=== PATIENT | female | born 1955 | race Caucasian/White ===

== ENCOUNTER 2016-12-07 14:42 | Emergency (ER) | payer OTHER ==
[~2016-12-07] VITALS: Ht 165.1 cm; Wt 56.7 kg
[~2016-12-07 14:42] MED LIST: ALBUAER19 INH; ASCO100061 PO; CHOL100010 PO; DICY10CA55 PO; ESTROGENS METHYLTEST PO; FRCT/ PO; LEVO75TA PO; METO1TAB54 PO; SYMIN160 INH; TRAZ150T64 PO
[2016-12-07 14:48] VITALS: TEMP 36.4; Ht 165.1 cm; Wt 56.7 kg
--- NOTE | 2016-12-07 16:32 | EMERGENCY ROOM VISIT NOTE ---
History Report prepared by Thomas: Alem Jara Under the Supervision of: Dr. Randy Ellington M.D. First contact with patient: 16:16 Chief Complaint: CONFUSION Stated Complaint: DISORIENTED, CONFUSED, NOT SURE OF SELF Nursing Triage Summary: pt reports being confused and forgeting things since tuesday pt reports she had bad headache on tuesday receives botox for migraines. feels nauseated today. no vomiting today. has headache moves throughout head. 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 daughter reports pt is slow thought process and has slower response time. also this has been going on for a while and wonders if med, takes wellbutrin. also concerned about pt not eating or drinking enough has been problem in past History of Present Illness The patient is a 61 year old female who presents to the Emergency Room with complaints of worsening confusion that started 2 days ago. Associated symptoms include worsening neck stiffness over past few days, persistent headaches, intermittent numbness and tingling in hands, feet, and legs, and worsening nausea today. The patient has a history of migraines in which she receives Botox to treat. She does not believe she has been "acting herself" recently. The patient's daughter reports that the patient came out of her bathroom today with her pants unbuckled. Her coworkers add noticing increased forgetfulness and distraction in the patient recently. The patient denies fevers, new onset abdominal pain, chest pain, or any additional associated symptoms. She also denies drug or alcohol use. Source of History: patient, family, other (Coworkers) Onset: 2 days ago Position: other (Neurologic ) Timing: worsening Modifying Factors (Relieving): other (None) Associated Symptoms: + headache, + nausea, + neck pain (Stiffness), + numbness, No chest pain, No fevers Review of Systems See HPI for pertinent positives & negatives. A total of 10 systems reviewed and were otherwise negative. Past Medical & Surgical Medical Problems: (1) Anemia (2) Asthma exacerbation (3) Bronchitis (4) Leukopenia Family History Adopted Social History Smoking Status: Never Smoker Alcohol Use: none Drug Use: none Marital Status: Housing Status: lives alone Occupation Status: unemployed Current/Historical Medications Scheduled Albuterol Hfa (Ventolin Hfa), 1-2 PUFFS INH Q6H Ascorbic Acid (Ascorbic Acid), 1,000 MG PO DAILY Budesonide/Formoterol Fumarate (Symbicort 160/4.5 Inhaler ), 2 PUFFS INH BID Cefdinir (Omnicef), 300 MG PO Q12H Cholecalciferol (Vitamin D), 1 TAB PO DAILY Levothyroxine Sodium (Synthroid), 75 MCG PO DAILY Montelukast Sodium (Singulair), 1 TAB PO DAILY Trazodone HCl (Trazodone HCl), 2 TABS PO HS Zolpidem Tartrate (Ambien), 0.5 TAB PO HS Scheduled PRN Dicyclomine Hcl (Bentyl), 10 MG PO DAILY PRN for Unknown Metoclopramide Hcl (Reglan), 5 MG PO 3-4 X DAILY PRN for Allergies Coded Allergies: No Known Allergies (Verified , 01/28/15) Physical Exam Vital Signs Date Time Temp Pulse Resp B/P Pulse Ox O2 Delivery O2 Flow Rate FiO2 12/07/16 18:36 76 20 133/76 98 Room Air 12/07/16 17:07 76 16 119/72 97 12/07/16 14:48 36.4 84 18 132/86 100 Room Air Physical Exam GENERAL: Patient is well appearing and in no acute distress. HEENT: No acute trauma, normocephalic atraumatic, mucous membranes moist, no nasal congestion, no scleral icterus. NECK: No stridor, no adenopathy, no meningismus, trachea is midline. LUNGS: No dyspnea. Clear to auscultation and equal bilaterally. No wheeze, no rhonchi. HEART: Regular rate and rhythm. No murmurs, rubs, gallops appreciated. ABDOMEN: Soft, nontender, bowel sounds positive, no masses appreciated, no peritonitis. BACK: No midline tenderness, no CVA tenderness EXTREMITIES: Normal motion all extremities, no cyanosis, no edema. NEUROLOGIC: Alert and oriented, no acute motor or sensory deficits, no focal weakness, cranial nerves grossly intact. SKIN: No rash, no jaundice, no diaphoresis. Medical Decision & Procedures ER Provider Diagnostic Interpretation: Radiology results and stated below per my review and radiologist interpretation: CT SCAN OF THE BRAIN WITHOUT IV CONTRAST CLINICAL HISTORY: Change in mental status. COMPARISON STUDY: CT of the brain dated 06/09/2014. TECHNIQUE: Unenhanced axial CT scan of the brain is performed from the vertex to the skull base. Automated dose control exposure was utilized. CT DOSE: 537.48 mGy.cm FINDINGS: Brain parenchyma: The brain parenchyma is normal in appearance. There is no hemorrhage, mass effect, or evidence of acute territorial ischemia by CT criteria. Harrison-white matter is preserved. No extra-axial fluid collection is seen. Ventricles, sulci, cisterns: Normal in configuration. Intracranial vasculature: The visualized intracranial vasculature at the skull base is normal in appearance. Calvarium: Unremarkable. Sinuses and mastoids: The visualized paranasal sinuses are clear. The mastoid air cells are well pneumatized. Orbits: The bony orbits are grossly intact. There is evidence of bilateral ocular lens surgery. IMPRESSION: There is no hemorrhage, mass effect, or evidence of acute territorial ischemia by CT criteria. Electronically signed by: Tahir Andrade M.D. 12/07/2016 5:21 PM Dictated Date/Time: 12/07/2016 5:19 PM SINGLE VIEW CHEST CLINICAL HISTORY: Change in mental status. FINDINGS: An AP, portable, upright chest radiograph is compared to study dated 06/12/2014 and correlated with chest CT dated 03/10/2012. The examination is degraded by portable technique and patient rotation. The cardiomediastinal silhouette is unremarkable. The lungs appear hyperinflated and hyperlucent with flattening of the diaphragm suggesting obstructive physiology. Chronic interstitial thickening is unchanged. There is no airspace consolidation, large pleural effusion, or pneumothorax. The bony thorax is grossly intact. IMPRESSION: No active disease in the chest. Electronically signed by: Tahir Andrade M.D. 12/07/2016 5:04 PM Dictated Date/Time: 12/07/2016 5:02 PM Laboratory Results 12/07/16 16:51 Red Blood Count 3.71, Mean Corpuscular Volume 95.4, Mean Corpuscular Hemoglobin 32.6, Mean Corpuscular Hemoglobin Concent 34.2, Mean Platelet Volume 8.0, Neutrophils (%) (Auto) 52.9, Lymphocytes (%) (Auto) 31.5, Monocytes (%) (Auto) 12.7, Eosinophils (%) (Auto) 2.2, Basophils (%) (Auto) 0.7, Neutrophils # (Auto ) 2.16, Lymphocytes # (Auto) 1.29, Monocytes # (Auto) 0.52, Eosinophils # (Auto ) 0.09, Basophils # (Auto) 0.03 12/07/16 16:51 Test 12/07/16 16:35 12/07/16 16:51 Urine Color YELLOW Urine Appearance CLOUDY (CLEAR) Urine pH 5.0 (4.5-7.5) Urine Specific [place] 1.013 (1.000-1.030) Urine Protein NEG (NEG) Urine Glucose (UA) NEG (NEG) Urine Ketones NEG (NEG) Urine Occult Blood 1+ (NEG) Urine Nitrite NEG (NEG) Urine Bilirubin NEG (NEG) Urine Urobilinogen NEG (NEG) Urine Leukocyte Esterase LARGE (NEG) Urine WBC (Auto) >30 /hpf (0-5) Urine RBC (Auto) 10-30 /hpf (0-4) Urine Hyaline Casts (Auto) 1-5 /lpf (0-5) Urine Epithelial Cells (Auto) >30 /lpf (0-5) Urine Bacteria (Auto) NEG (NEG) Urine Yeast (Auto) (NONE PRSENT) Urine Opiates Screen NEG (NEG) Urine Methadone, Qualitative NEG (NEG) Urine Barbiturates NEG (NEG) Urine Phencyclidine (PCP) Level NEG (NEG) Ur Amphetamine/Methamphetamine NEG (NEG) MDMA (Ecstasy) Screen POS (NEG) Urine Benzodiazepines Screen NEG (NEG) Urine Cocaine Metabolite NEG (NEG) Urine Marijuana (THC) NEG (NEG) White Blood Count 4.09 K/uL (4.8-10.8) Red Blood Count 3.71 M/uL (4.2-5.4) Hemoglobin 12.1 g/dL (12.0-16.0) Hematocrit 35.4 % (37-47) Mean Corpuscular Volume 95.4 fL (80-100) Mean Corpuscular Hemoglobin 32.6 pg (25-34) Mean Corpuscular Hemoglobin Concent 34.2 g/dl (32-36) Platelet Count 218 K/uL (130-400) Mean Platelet Volume 8.0 fL (7.4-10.4) Neutrophils (%) (Auto) 52.9 % Lymphocytes (%) (Auto) 31.5 % Monocytes (%) (Auto) 12.7 % Eosinophils (%) (Auto) 2.2 % Basophils (%) (Auto) 0.7 % Neutrophils # (Auto) 2.16 K/uL (1.4-6.5) Lymphocytes # (Auto) 1.29 K/uL (1.2-3.4) Monocytes # (Auto) 0.52 K/uL (0.11-0.59) Eosinophils # (Auto) 0.09 K/uL (0-0.5) Basophils # (Auto) 0.03 K/uL (0-0.2) RDW Standard Deviation 42.9 fL (36.4-46.3) RDW Coefficient of Variation 12.3 % (11.5-14.5) Immature Granulocyte % (Auto) 0.0 % Immature Granulocyte # (Auto) 0.00 K/uL (0.00-0.02) Prothrombin Time 10.7 SECONDS (9.0-12.0) Prothromb Time International Ratio 1.0 (0.9-1.1) Activated Partial Thromboplast Time 28.4 SECONDS (21.0-31.0) Partial Thromboplastin Ratio 1.1 Anion Gap 7.0 mmol/L (3-11) Est Creatinine Clear Calc Drug Dose 52.2 ml/min Estimated GFR () 69.9 Estimated GFR (Non- 60.3 BUN/Creatinine Ratio 18.8 (10-20) Calcium Level 9.1 mg/dl (8.5-10.1) Total Bilirubin 0.3 mg/dl (0.2-1) Direct Bilirubin 0.1 mg/dl (0-0.2) Aspartate Amino Transf (AST/SGOT) 19 U/L (15-37) Alanine Aminotransferase (ALT/SGPT) 30 U/L (12-78) Alkaline Phosphatase 56 U/L (45-117) Troponin I < 0.015 ng/ml (0-0.045) C-Reactive Protein 0.45 mg/dl (0-0.29) Total Protein 6.6 gm/dl (6.4-8.2) Albumin 4.1 gm/dl (3.4-5.0) Ethyl Alcohol mg/dL < 3.0 mg/dl (0-3) Laboratory results as reviewed by me. Medications Administered Medications (Trade) Dose Ordered Sig/Riley Route Start Time Stop Time Status Last Admin Dose Admin Ceftriaxone Sodium (Rocephin Inj) 1 gm NOW STAT IV 12/07/16 17:40 12/07/16 17:41 DC 12/07/16 17:59 1 GM ED Course 1619: The patient was evaluated in room C1. A complete history and physical exam was performed. 1739: Ordered Rocephin Injection 1 gm IV. 1740: I discussed the test results and treatment plan with the patient. She does not wish to stay in the hospital. She is agreeable to antibiotic treatment for a UTI. The patient does admit to experiencing urinary burning and frequency over the past two weeks. 1809: Reevaluated the patient. Discussed results and discharge instructions: She verbalized understanding and agreement. The patient is ready for discharge. Medical Decision Differential: Toxicological, Infectious, Stroke, SAH, Trauma, Electrolyte Abnormality, Hypoglycemia, Alcohol Intoxication, Drug Intoxication, Cardiac Abnormality, Sepsis, Meningitis/Encephalitis, Trauma, Excited Delirium, Serotonin Syndrome, Psychiatric, amongst other pathologies entertained. 61 yr old female with several days of not acting herself. She has been mildly confused, forgetful and periodically spacing out. Currently she is in no distress but apparently doesn't remember small events of last few days. She has no meningitic findings and does not appear acutely encephalitic while here in ED. At this time I do not see obvious reason that benefits outweigh risks of LP. Labs unremarkable, cxr clear and ct head negative. After entire work-up and concern for UTI by UA patient admits that she has been having burning with urination over the last week with frequency. She is completely awake, alert, oriented and is not confused currently. She has no evidence of dissection, meningitis, SAH. I offered to bring her in for further work-up and evaluation though patient is not interested in staying. She will be with family at home. Daughter was instructed on symptoms findings requiring immediate return. Impression Primary Impression: Urinary tract infection Scribe Attestation The scribe's documentation has been prepared under my direction and personally reviewed by me in its entirety. I confirm that the note above accurately reflects all work, treatment, procedures, and medical decision making performed by me. Departure Information Dispostion Home / Self-Care Prescriptions Cefdinir (Omnicef) 300 Mg Cap 300 MG PO Q12H for 10 Days, #20 CAP Prov: Randy Ellington M.D. 12/07/16 Referrals No Doctor, Assigned (PCP) Forms HOME CARE DOCUMENTATION FORM, IMPORTANT VISIT INFORMATION, WORK / SCHOOL INSTRUCTIONS Patient Instructions My [facility], UTI Problem Qualifiers Primary Impression: Urinary tract infection Urinary tract infection type: acute cystitis Hematuria presence: without hematuria Qualified Codes: N30.00 - Acute cystitis without hematuria
[2016-12-07] MEDS ORDERED: MONT1TAB3 PO (16:41)
[2016-12-07] MEDS ORDERED: VNTHFA/IN INH (16:41)
[2016-12-07] MEDS ORDERED: DSY/150 PO (16:41)
[2016-12-07] MEDS ORDERED: CHOL100010 PO (16:41)
[2016-12-07] MEDS ORDERED: ZOLP5TAB PO (16:41)
[2016-12-07 17:05] LABS: URINE APPEARANCE CLOUDY (CLEAR); URINE BILIRUBIN NEG (NEG); URINE COLOR YELLOW; URINE EPITHELIAL CELL AUTO >30 /lpf (0-5); URINE NITRITE NEG (NEG); URINE SPECIFIC GRAVITY 1.013 (1.000-1.030); UROBILINOGEN NEG (NEG); ZZUR CULT IF INDIC CLEAN CATCH YES
[2016-12-07 17:05] LABS: BASO % 0.7 %; BASO ABS # 0.03 K/uL (0-0.2); COMPLETE YES; EOS % 2.2 %; HEMATOCRIT 35.4 % (37-47); LYMPH % 31.5 %; LYMPH ABS # 1.29 K/uL (1.2-3.4); MEAN CELL VOLUME 95.4 fL (80-100); MEAN CORPUSCULAR HEMOGLOBIN 32.6 pg (25-34); MEAN CORPUSCULAR HGB CONC 34.2 g/dl (32-36); MONO % 12.7 %; NEUT % 52.9 %; PLATELET COUNT 218 K/uL (130-400); RED BLOOD COUNT 3.71 M/uL (4.2-5.4); WHITE BLOOD COUNT 4.09 K/uL (4.8-10.8)
--- NOTE | 2016-12-07 17:05 | DIAGNOSTIC IMAGING REPORT ---
SINGLE VIEW CHEST CLINICAL HISTORY: Change in mental status. FINDINGS: An AP, portable, upright chest radiograph is compared to study dated 06/12/2014 and correlated with chest CT dated 03/10/2012. The examination is degraded by portable technique and patient rotation. The cardiomediastinal silhouette is unremarkable. The lungs appear hyperinflated and hyperlucent with flattening of the diaphragm suggesting obstructive physiology. Chronic interstitial thickening is unchanged. There is no airspace consolidation, large pleural effusion, or pneumothorax. The bony thorax is grossly intact. IMPRESSION: No active disease in the chest. Electronically signed by: Tahir Andrade M.D. 12/07/2016 5:04 PM Dictated Date/Time: 12/07/2016 5:02 PM
[2016-12-07 17:07] LABS: MANUAL MICROSCOPIC REQUIRED? NO; REVIEW REQ? YES
[2016-12-07 17:13] LABS: PARTIAL THROMBOPLASTIN RATIO 1.1; PROTHROMBIN TIME (PATIENT) 10.7 SECONDS (9.0-12.0)
--- NOTE | 2016-12-07 17:22 | DIAGNOSTIC IMAGING REPORT ---
CT SCAN OF THE BRAIN WITHOUT IV CONTRAST CLINICAL HISTORY: Change in mental status. COMPARISON STUDY: CT of the brain dated 06/09/2014. TECHNIQUE: Unenhanced axial CT scan of the brain is performed from the vertex to the skull base. Automated dose control exposure was utilized. CT DOSE: 537.48 mGy.cm FINDINGS: Brain parenchyma: The brain parenchyma is normal in appearance. There is no hemorrhage, mass effect, or evidence of acute territorial ischemia by CT criteria. Harrison-white matter is preserved. No extra-axial fluid collection is seen. Ventricles, sulci, cisterns: Normal in configuration. Intracranial vasculature: The visualized intracranial vasculature at the skull base is normal in appearance. Calvarium: Unremarkable. Sinuses and mastoids: The visualized paranasal sinuses are clear. The mastoid air cells are well pneumatized. Orbits: The bony orbits are grossly intact. There is evidence of bilateral ocular lens surgery. IMPRESSION: There is no hemorrhage, mass effect, or evidence of acute territorial ischemia by CT criteria. Electronically signed by: Tahir Andrade M.D. 12/07/2016 5:21 PM Dictated Date/Time: 12/07/2016 5:19 PM
[2016-12-07 17:24] LABS: ALT/SGPT 30 U/L (12-78); AST/SGOT 19 U/L (15-37); BLOOD UREA NITROGEN 19 mg/dl (7-18); BUN/CREATININE RATIO 18.8 (10-20); CALCIUM 9.1 mg/dl (8.5-10.1); CARBON DIOXIDE 28 mmol/L (21-32); CHLORIDE 105 mmol/L (98-107); GLUCOSE 86 mg/dl (70-99); POTASSIUM 4.1 mmol/L (3.5-5.1); SODIUM 140 mmol/L (136-145)
[2016-12-07 17:29] LABS: ALKALINE PHOSPHATASE 56 U/L (45-117); C-REACTIVE PROTEIN 0.45 mg/dl (0-0.29)
[2016-12-07 17:34] LABS: BENZODIAZEPINE, URINE NEG (NEG); COCAINE,URINE NEG (NEG); PHENCYCLIDINE, URINE NEG (NEG)
[2016-12-07] MEDS ORDERED: CEFTRIAXONE SOD INJ 1 GM ADDVIAL IV STA (17:40)
[2016-12-07] MEDS ORDERED: CEFD1CAP14 PO (17:59)
[2016-12-07 18:36] VITALS: BP 133/76; PULSE 76; O2SAT 98
[2016-12-08] MEDS ORDERED: CEFD1CAP14 PO (22:15)
[2016-12-08] MEDS ORDERED: BUPR-79 PO (22:15)
[2016-12-08] MEDS ORDERED: TRAZ100T29 PO (22:15)
[2016-12-08] MEDS ORDERED: NUTR-218 PO (22:15)
[2016-12-10] MEDS ORDERED: ONDA8TAB62 SL (15:28)
[2016-12-10] MEDS ORDERED: RIZA10TA19 PO (15:28)
[2017-02-01] MEDS ORDERED: PANT40TA PO (08:35)
[2017-02-01] MEDS ORDERED: SUCR5SUS PO (08:36)
[2017-05-18] MEDS ORDERED: BACL10TA PO (09:47)
== END 2016-12-07 18:58 | disposition home or self-care (01) ==
LOC: C.EDB 14:44 → C.EDC 18:58
DX: N30.00 Acute cystitis without hematuria (principal); Z79.899 Other long term (current) drug therapy

== ENCOUNTER 2016-12-08 19:27 | Inpatient (IN) | payer OTHER ==
[~2016-12-08] VITALS: Ht 165.1 cm; Wt 55.7 kg
[~2016-12-08 19:27] MED LIST changes: -ALBUAER19 INH; +CEFD1CAP14 PO; +DSY/150 PO; -ESTROGENS METHYLTEST PO; -FRCT/ PO; +MONT1TAB3 PO; -TRAZ150T64 PO; +VNTHFA/IN INH; +ZOLP5TAB PO
[2016-12-08] MEDS ORDERED: CEFD1CAP14 PO (22:15)
[2016-12-08] MEDS ORDERED: BUPR-79 PO (22:15)
[2016-12-08] MEDS ORDERED: NUTR-218 PO (22:15)
[2016-12-08] MEDS ORDERED: TRAZ100T29 PO (22:15)
[2016-12-08 22:50] LABS: BASO % 0.9 %; BASO ABS # 0.04 K/uL (0-0.2); COMPLETE YES; EOS % 2.1 %; HEMATOCRIT 37.6 % (37-47); LYMPH % 36.5 %; LYMPH ABS # 1.55 K/uL (1.2-3.4); MEAN CELL VOLUME 95.4 fL (80-100); MEAN CORPUSCULAR HEMOGLOBIN 32.5 pg (25-34); MEAN PLATELET VOLUME 8.1 fL (7.4-10.4); MONO % 12.9 %; NEUT % 47.6 %; PLATELET COUNT 234 K/uL (130-400); RED BLOOD COUNT 3.94 M/uL (4.2-5.4); WHITE BLOOD COUNT 4.25 K/uL (4.8-10.8)
[2016-12-08 23:00] LABS: PARTIAL THROMBOPLASTIN RATIO 1.1; PROTHROMBIN TIME (PATIENT) 10.6 SECONDS (9.0-12.0)
[2016-12-08 23:10] LABS: URINE APPEARANCE CLOUDY (CLEAR); URINE BILIRUBIN NEG (NEG); URINE COLOR YELLOW; URINE EPITHELIAL CELL AUTO >30 /lpf (0-5); URINE NITRITE NEG (NEG); URINE PH 5.5 (4.5-7.5); URINE SPECIFIC GRAVITY 1.008 (1.000-1.030); UROBILINOGEN NEG (NEG); ZZURINE CULT IF INDIC CATH YES
[2016-12-08 23:12] LABS: MANUAL MICROSCOPIC REQUIRED? NO; REVIEW REQ? YES
[2016-12-08 23:22] LABS: ALT/SGPT 25 U/L (12-78); BLOOD UREA NITROGEN 22 mg/dl (7-18); BUN/CREATININE RATIO 19.5 (10-20); C-REACTIVE PROTEIN 0.31 mg/dl (0-0.29); CALCIUM 9.3 mg/dl (8.5-10.1); CARBON DIOXIDE 30 mmol/L (21-32); CHLORIDE 103 mmol/L (98-107); GLUCOSE 83 mg/dl (70-99); MAGNESIUM 2.1 mg/dl (1.8-2.4); POTASSIUM 4.3 mmol/L (3.5-5.1); SODIUM 138 mmol/L (136-145)
[2016-12-08 23:31] LABS: ALB/GLOB RATIO 1.6 (0.9-2); ALKALINE PHOSPHATASE 58 U/L (45-117); AST/SGOT 19 U/L (15-37); CKMB/CK RATIO 1.5 (0-3.0)
[2016-12-09] MEDS ORDERED: BUTALBITAL/ACETAMIN/CAFFEINE TAB PO STA (00:36)
[2016-12-09] MEDS ORDERED: CEFTRIAXONE SOD INJ 1 GM ADDVIAL IV STA (01:53)
[2016-12-09] MEDS ORDERED: ONDANSETRON INJ 2 MG/ML 2 ML VIAL IV PRN (02:45)
[2016-12-09] MEDS ORDERED: ACETAMINOPHEN 325 MG TAB PO PRN (02:45)
[2016-12-09] MEDS ORDERED: DICYCLOMINE HCL 10 MG CAP PO PRN (02:45)
[2016-12-09] MEDS ORDERED: MAGNESIUM HYDROXIDE SUSP 30 ML UDC PO PRN (02:45)
[2016-12-09] MEDS ORDERED: POLYETHYLENE (MIRALAX) 17 GM PACK PO PRN (02:45)
[2016-12-09] MEDS ORDERED: ALUMINUM/MAGNESIUM/SIMETH (MAALOX MAX) 30 ML UDC PO PRN (02:45)
[2016-12-09] MEDS ORDERED: METOCLOPRAMIDE HCL 5 MG TAB PO PRN (02:45)
[2016-12-09] MEDS ORDERED: ALBUTEROL HFA 8 GM INHALER INH PRN (02:45)
[2016-12-09 03:45] VITALS: BP 129/79; PULSE 69; TEMP 36.8; O2SAT 98
--- NOTE | 2016-12-09 04:29 | History and Physical ---
History & Physical Date & Time of Service: Dec 09, 2016 at 04:12 Chief Complaint: Ams, Uti Primary Care Physician: Sean Clifton M.D. History of Present Illness This is a 61 y/o F with a history of being a kidney donor, depression, hypothyroid, asthma who presents to the ED today due to confusion/ altered mental status. SHe was in the ED yesterday and was recommended to stay overnight due to having a UTI and only one kidney, however patient wanted to go home. She returns today with worsening confusion. SHe describes this as "fog" and inability to think. Daughter reports she has normal thought process but is intermittently confused. I was unable to really get an understanding of her symptoms other than, "i feel confused" though she reports being much better since being in the ED today. SHe denies nausea, vomiting, urinary symptoms, diarrhea, fevers chills. Does admit to mild lower abdominal pain. Past Medical/Surgical History Medical Problems: (1) Anemia Status: Resolved (2) Asthma exacerbation Status: Resolved (3) Bronchitis Status: Resolved (4) Leukopenia Status: Chronic Family History Adopted Social History Smoking Status: Never Smoker Alcohol Use: occasionally Drug Use: none Marital Status: Housing status: lives alone Occupational Status: unemployed Immunizations History of Influenza Vaccine: Yes Influenza Vaccine Date: May 13, 2011 History of Tetanus Vaccine?: unknown Tetanus Immunization Date: Sep 12, 2006 History of Pneumococcal: Yes Pneumococcal Date: Jun 04, 2008 History of Hepatitis B Vaccine: Yes Multi-Drug Resistant Organisms History of MDRO: No Allergies Coded Allergies: No Known Allergies (Verified , 12/08/16) Home Medications Scheduled Ascorbic Acid (Ascorbic Acid), 1,000 MG PO DAILY Budesonide/Formoterol Fumarate (Symbicort 160/4.5 Inhaler ), 2 PUFFS INH BID Bupropion (Wellbutrin Sr), 150 MG PO QAM Cholecalciferol (Vitamin D), 1 TAB PO DAILY Levothyroxine Sodium (Synthroid), 75 MCG PO DAILY Montelukast Sodium (Singulair), 1 TAB PO DAILY Nutritional Supplements (Juice Plus Fibre), 4 TAB PO BID Trazodone Hcl (Trazodone), 300 MG PO HS Zolpidem Tartrate (Ambien), 0.5 TAB PO HS Scheduled PRN Albuterol Hfa (Ventolin Hfa), 1-2 PUFFS INH Q6H PRN for Shortness of Breath Dicyclomine Hcl (Bentyl), 10 MG PO DAILY PRN for Unknown Ondansetron Odt (Zofran Odt), 8 MG SL Q6H PRN for nausea associated w/ headache Rizatriptan Benzoate (Maxalt-Car Mechanic Helper), 10 MG PO Q2H PRN for headache Review of Systems Constitutional: No chills, No fever, No sweats Respiratory: No cough, No dyspnea at rest, No dyspnea on exertion, No shortness of breath, No sputum, No wheezing Cardiovascular: No chest pain Abdomen: + pain, No diarrhea, No nausea, No vomiting Genitourinary - Female: No dysuria, No urinary frequency, No urinary urgency Physical Exam Vital Signs Date Time Temp Pulse Resp B/P Pulse Ox O2 Delivery O2 Flow Rate FiO2 12/09/16 02:25 73 18 130/78 97 Room Air 12/09/16 00:46 75 16 132/81 99 Room Air 12/08/16 19:30 36.8 77 16 144/89 100 Room Air General Appearance: no apparent distress Eyes: PERRL, EOMI ENT: hearing grossly normal Neck: supple, no adenopathy, thyroid normal Respiratory/Chest: lungs clear, normal breath sounds, no respiratory distress, no accessory muscle use Cardiovascular: regular rate, rhythm, no edema, no murmur Abdomen/GI: normal bowel sounds, soft, + tenderness (mild lower abdominal ) Back: normal inspection, no CVA tenderness Extremities/Musculoskelatal: no calf tenderness, no pedal edema Neurologic/Psych: industrial roofer II-XII nml as tested, no motor/sensory deficits, alert, normal mood/affect, oriented x 3 Diagnostics Laboratory Results Results Past 24 Hours Test 12/08/16 22:40 Range/Units White Blood Count 4.25 4.8-10.8 K/uL Red Blood Count 3.94 4.2-5.4 M/uL Hemoglobin 12.8 12.0-16.0 g/dL Hematocrit 37.6 37-47 % Mean Corpuscular Volume 95.4 80-100 fL Mean Corpuscular Hemoglobin 32.5 25-34 pg Mean Corpuscular Hemoglobin Concent 34.0 32-36 g/dl Platelet Count 234 130-400 K/uL Mean Platelet Volume 8.1 7.4-10.4 fL Neutrophils (%) (Auto) 47.6 % Lymphocytes (%) (Auto) 36.5 % Monocytes (%) (Auto) 12.9 % Eosinophils (%) (Auto) 2.1 % Basophils (%) (Auto) 0.9 % Neutrophils # (Auto) 2.02 1.4-6.5 K/uL Lymphocytes # (Auto) 1.55 1.2-3.4 K/uL Monocytes # (Auto) 0.55 0.11-0.59 K/uL Eosinophils # (Auto) 0.09 0-0.5 K/uL Basophils # (Auto) 0.04 0-0.2 K/uL RDW Standard Deviation 42.6 36.4-46.3 fL RDW Coefficient of Variation 12.1 11.5-14.5 % Immature Granulocyte % (Auto) 0.0 % Immature Granulocyte # (Auto) 0.00 0.00-0.02 K/uL Erythrocyte Sedimentation Rate 2 0-21 mm/hr Prothrombin Time 10.6 9.0-12.0 SECONDS Prothromb Time International Ratio 1.0 0.9-1.1 Activated Partial Thromboplast Time 28.0 21.0-31.0 SECONDS Partial Thromboplastin Ratio 1.1 Sodium Level 138 136-145 mmol/L Potassium Level 4.3 3.5-5.1 mmol/L Chloride Level 103 98-107 mmol/L Carbon Dioxide Level 30 21-32 mmol/L Anion Gap 5.0 3-11 mmol/L Blood Urea Nitrogen 22 7-18 mg/dl Creatinine 1.10 0.60-1.20 mg/dl Est Creatinine Clear Calc Drug Dose 46.6 ml/min Estimated GFR () 62.3 Estimated GFR (Non- 53.8 BUN/Creatinine Ratio 19.5 10-20 Random Glucose 83 70-99 mg/dl Calcium Level 9.3 8.5-10.1 mg/dl Magnesium Level 2.1 1.8-2.4 mg/dl Total Bilirubin 0.4 0.2-1 mg/dl Aspartate Amino Transf (AST/SGOT) 19 15-37 U/L Alanine Aminotransferase (ALT/SGPT) 25 12-78 U/L Alkaline Phosphatase 58 45-117 U/L Total Creatine Kinase 72 26-192 U/L Creatine Kinase MB 1.1 0.5-3.6 ng/ml Creatine Kinase MB Ratio 1.5 0-3.0 Troponin I < 0.015 0-0.045 ng/ml C-Reactive Protein 0.31 0-0.29 mg/dl Total Protein 6.6 6.4-8.2 gm/dl Albumin 4.1 3.4-5.0 gm/dl Globulin 2.5 2.5-4.0 gm/dl Albumin/Globulin Ratio 1.6 0.9-2 Lipase 224 73-393 U/L Thyroid Stimulating Hormone (TSH) 1.160 0.300-4.500 uIu/ml Random Cortisol 6.23 mcg/dl Impression Assessment and Plan 61 y/o F with intermittent confusion, concerning for infectious causes vs. metabolic, vs CVA AMS: U/A positive - complicated UTI? Will switch to Cipro since she was already treated with Rocephin and maybe there is some resistance Head CT and MRI unremarkable Renal USG without Hydronephrosis or Pyelo. NSS Urine tox yesterday was positive for MDMA- likely cross reactivity with buproprion Depression: Buproprion, trazodone Asthma- controlled continue Singulair and ventolin Hypothyroid Continue Synthroid DVT proph: Heparin VTE Prophylaxis VTE Risk Assessment Done? Y/N: Yes Risk Level: Moderate Given or contraindicated: Unfractionated heparin SQ Assessment and Plan Attending Addendum: I have physically seen and examined this patient, have directed their medical care, have supervised the medical residents activities, and agree with the H&P as noted above, with the following changes: The patient is awake, well-developed and adequately nourished, alert and oriented 3, normocephalic and atraumatic, lying in bed and in no acute distress. HEENT--PERRL, EOMI, mucous membranes and oropharynx dry. Neck--supple, no JVD or bruits, thyroid normal, trachea midline, no adenopathy. Heart--normal S1 and S2, no extra beats, no murmurs, rubs or gallops. Lungs--clear bilaterally with good air movement, no respiratory distress, no accessory muscle use. Abdomen--normal bowel sounds and soft, mild tenderness mid lower abdomen, nondistended, no hernias or masses, no organomegaly. Extremities--no cyanosis, clubbing or edema. There are good distal pulses b/l. Dermatologic--normal skin turgor, normal color, warm and dry, no abnormal lymph nodes, no rash. Neurologic--cranial nerves II through XII grossly intact, motor and sensory examination normal. Rheumatologic--normal range of motion, nontender, muscles and joints. Psychiatric--normal affect. Assessment and Plan: Altered mental status--the patient has had a normal head CT and brain MRI. Etiology may be secondary to UTI. UTI--previously treated with ceftriaxone. Change antibiotic to Cipro IV. Hydrate with normal saline and follow BMP and magnesium levels. Depression--continue bupropion and trazodone. Asthma-- continue Singulair and Ventolin HFA. Hypothyroidism--continue current dose of Synthroid.
[2016-12-09 04:42] VITALS: BP 129/79; PULSE 69; TEMP 36.8; Ht 165.1 cm; Wt 55.7 kg
[2016-12-09] MEDS: CIPROFLOXACIN / D5W 400 MG in PREMIXED IN D5W 200 ML IV SCH ×2 (06:28→18:23)
[2016-12-09] MEDS: LEVOTHYROXINE 75 MCG TAB PO SCH (06:28)
[2016-12-09] MEDS: SODIUM CHLORIDE 0.9% 1000ML 1,000 ML IV SCH (06:28)
--- NOTE | 2016-12-09 06:48 | DIAGNOSTIC IMAGING REPORT ---
EXAMINATION: RENAL ULTRASOUND CLINICAL HISTORY: Left flank pain. History of right nephrectomy. COMPARISON STUDY: CT scan dated 01/21/2015 FINDINGS: The right kidney is surgically absent. The left kidney measures 12.7 cm.. There is no evidence of hydronephrosis. There are no renal masses. No bladder abnormalities are visualized. The left ureteral jet was visualized.. IMPRESSION : Surgically absent right kidney. Otherwise normal study. Electronically signed by: Kvng Perdomo M.D. 12/09/2016 6:47 AM Dictated Date/Time: 12/09/2016 6:46 AM
--- NOTE | 2016-12-09 07:20 | DIAGNOSTIC IMAGING REPORT ---
MRI OF THE BRAIN WITHOUT IV CONTRAST CLINICAL HISTORY: Change in mental status. Headache. COMPARISON STUDY: CT of the brain dated 12/07/2016. MRI of the brain dated 06/12/2014. TECHNIQUE: MRI of the brain was performed utilizing various T1 and T2-weighted sequences in the axial, sagittal, and coronal planes. IV contrast was not administered for this examination. FINDINGS: Brain parenchyma: There is mild patchy subcortical and periventricular microangiopathic disease. The brain parenchyma is otherwise normal in appearance. There is no hemorrhage or mass effect. There is no restricted diffusion to suggest acute ischemia. Harrison-white matter differentiation is preserved. No extra-axial fluid collection is seen. The cerebellar tonsils are normal in configuration. Ventricles, sulci, and cisterns: Normal in configuration. Pituitary and sella: Unremarkable. Intracranial vasculature: Normal flow voids are maintained at the skull base. Orbits: The bony orbits are grossly intact. Orbital contents are normal in appearance noting bilateral ocular lens implants. Sinuses and mastoids: Clear. Calvarium: Unremarkable. Cervical cord: Partially visualized cervical spinal cord is normal in morphology and signal intensity. IMPRESSION: No acute intracranial abnormality. Electronically signed by: Tahir Andrade M.D. 12/09/2016 7:19 AM Dictated Date/Time: 12/09/2016 7:16 AM
[2016-12-09] MEDS: BUDESONIDE/FORMOTEROL FUMARATE 160/4.5 60 PUFFS/INHALER INH SCH ×2 (08:30→20:25)
[2016-12-09] MEDS: BuPROPion SR 150 MG TABCR PO SCH (08:30)
[2016-12-09] MEDS: MONTELUKAST SOD 10 MG TAB PO SCH (08:30)
[2016-12-09] MEDS: HEPARIN SOD 5000 UNIT/0.5 ML CARP SQ SCH ×2 (08:35→20:25)
[2016-12-09 09:15] VITALS: BP 116/77; PULSE 72; TEMP 36.7; O2SAT 96
[2016-12-09] MEDS ORDERED: KETOROLAC TROMETHAMINE 30 MG/ML VIAL IV SCH (10:15)
[2016-12-09] MEDS ORDERED: PROMETHAZINE HCL INJ 25 MG in SODIUM CHLORIDE 0.9% 50ML 50 ML IV ONE (14:30)
[2016-12-09] MEDS ORDERED: SUMATRIPTAN SUCCINATE 6 MG/0.5 ML VIAL SQ ONE (14:30)
[2016-12-09 17:05] VITALS: BP 129/83; PULSE 77; TEMP 36.8; O2SAT 97
[2016-12-09] MEDS ORDERED: SUMATRIPTAN SUCCINATE 6 MG/0.5 ML VIAL SQ PRN (20:45)
[2016-12-09] MEDS ORDERED: ZOLPIDEM TARTRATE 5 MG TAB PO SCH (21:00)
[2016-12-09] MEDS ORDERED: TRAZODONE HCL 100 MG TAB PO SCH (21:00)
[2016-12-09 23:25] VITALS: BP 100/62; PULSE 83; TEMP 36.9; O2SAT 96
--- NOTE | 2016-12-10 01:22 | Progress Note ---
Progress Note Date of Service Dec 09, 2016. Progress Note Saw patient earlier today. Her only complaint was that of headache - frontal, vertex of skull, and occipital as well. h/o migraines - had used triptans and fioricet over the years. she then started getting botox injections for the headaches w/ relief. she reported mild photophobia, phonophobia, and nausea. her headache today was similar to old migraines. headache started last weekend. no further confusion per staff and the patient herself. exam - gen - NAD eyes - PERRL heart - RRR lungs - CTA b/l neuro - strength 01/14 x 4 exts no facial droop A/P: 1. encephalopathy - resolved. etiology?? due to severe migraine h/a? MRI brain, labs, etc all negative. 2. migraine - imitrex SC 6mg x 1 phenergan 25mg x 1 dim the lights watch overnight Alisha BRYAN MD
[2016-12-10] MEDS: SODIUM CHLORIDE 0.9% 1000ML 1,000 ML IV SCH (02:59)
[2016-12-10] MEDS: CIPROFLOXACIN / D5W 400 MG in PREMIXED IN D5W 200 ML IV SCH (06:16)
[2016-12-10] MEDS: LEVOTHYROXINE 75 MCG TAB PO SCH (06:17)
[2016-12-10 07:07] LABS: BASO % 0.5 %; BASO ABS # 0.02 K/uL (0-0.2); COMPLETE YES; EOS % 2.7 %; HEMATOCRIT 37.1 % (37-47); IG% 0.3 %; LYMPH % 46.6 %; LYMPH ABS # 1.73 K/uL (1.2-3.4); MEAN CELL VOLUME 97.4 fL (80-100); MEAN CORPUSCULAR HEMOGLOBIN 33.1 pg (25-34); MEAN PLATELET VOLUME 8.1 fL (7.4-10.4); MONO % 16.2 %; NEUT % 33.7 %; PLATELET COUNT 232 K/uL (130-400); RED BLOOD COUNT 3.81 M/uL (4.2-5.4); WHITE BLOOD COUNT 3.71 K/uL (4.8-10.8)
[2016-12-10 07:40] VITALS: BP 98/64; PULSE 69; TEMP 36.9; O2SAT 97
[2016-12-10 07:45] LABS: BUN/CREATININE RATIO 19.6 (10-20); CALCIUM 8.5 mg/dl (8.5-10.1); CREATININE 1.2 mg/dl (0.60-1.20)
[2016-12-10] MEDS: BuPROPion SR 150 MG TABCR PO SCH (09:11)
[2016-12-10] MEDS: MONTELUKAST SOD 10 MG TAB PO SCH (09:12)
[2016-12-10] MEDS: BUDESONIDE/FORMOTEROL FUMARATE 160/4.5 60 PUFFS/INHALER INH SCH (09:12)
[2016-12-10] MEDS: HEPARIN SOD 5000 UNIT/0.5 ML CARP SQ SCH (09:15)
[2016-12-10 10:43] VITALS: O2SAT 97
--- NOTE | 2016-12-10 13:15 | DIAGNOSTIC IMAGING REPORT ---
MRA OF THE INTRACRANIAL CIRCULATION WITHOUT CONTRAST CLINICAL HISTORY: Headaches. Evaluate for aneurysm. COMPARISON STUDY: MRA of the intracranial circulation June 12, 2014 TECHNIQUE: Utilizing a 1.5 Palak magnet and 3-D [id number] technique, unenhanced MRA of the intracranial circulation was obtained. FINDINGS: The bilateral M1, M2, A1 and A2 segments are patent. There is no abrupt vessel cut off. Posterior circulation is intact. The right vertebral artery is dominant. No intracranial aneurysm is identified. IMPRESSION: Unremarkable MRA of the intracranial circulation. Electronically signed by: Henry Ortez M.D. 12/10/2016 1:14 PM Dictated Date/Time: 12/10/2016 1:10 PM
[2016-12-10] MEDS ORDERED: RIZA10TA19 PO (15:28)
[2016-12-10] MEDS ORDERED: ONDA8TAB62 SL (15:28)
--- NOTE | 2016-12-10 15:34 | Discharge Instructions ---
Discharge Instructions Date of Service Dec 10, 2016. Admission Reason for Admission: Confusion, Headache Discharge Discharge Diagnosis / Problem: Confusion & Headache both resolved. Discharge Goals Goal(s): Learn about illness, Diagnostic testing, Therapeutic intervention Activity Recommendations Activity Limitations: resume your previous activity . Instructions / Follow-Up Instructions / Follow-Up From Dr. Gutierres - 1. Your headache was likely due to migraine. It responded nicely to imitrex injections. May take the following on an as needed basis - * maxalt melt a-way tabs every 2 hours as needed; max 3 tabs in 24 hours * zofran ODT 8mg every 6-8 hours as needed for nausea related to a migraine headache Please keep a "headache" diary if you continue to get recurrent headaches. Write down your sleep patterns, foods, stress, etc to see if there are any triggers of the headaches. Please follow-up with Dr. Kay for the headaches and continue your botox injections. 2. You have had 2 negative urine cultures in the last few days. At this time no further antibiotics are recommended. 3. Your white blood cell count has been low-normal for a number of years (3.5 to 4.5 range). This does not necessarily indicate any immune system problem or problem of the bone marrow. The chronicity of it would suggest it is likely benign. Please follow-up with Dr. Clifton for this. 4. See Dr. Clifton within 1 week. 5. The cause of your mild confusion is unknown. It is possible that it was in some way related to your severe headache. During your stay you had no evidence of any infection, any electrolyte abnormality, and your MRI/MRA brain were both normal. 6. Return to [facility] if you develop any recurrent confusion, headache not responding to your migraine medications, fever over 100.5 degrees, etc. Current Hospital Diet Patient's current hospital diet: Regular Diet Discharge Diet Recommended Diet: Regular Diet Procedures Procedures Performed: MRI brain - no evidence of stroke, tumor, etc. MRA brain - no evidence of aneurysm or other abnormality of the arteries of the brain. Urine culture negative for bladder infection. Pending Studies Studies pending at discharge: no Medical Emergencies . Who to Call and When: Medical Emergencies: If at any time you feel your situation is an emergency, please call 911 immediately. . Non-Emergent Contact Non-Emergency issues call your: Primary Care Provider Call Non-Emergent contact if: temperature is above 100.5, your pain is not controlled, your pain is worsening, your pain is unusual for you, your pain is concerning you, you have any medication questions . . "Provider Documentation" section prepared by David Gutierres. VTE Core Measure Inpt VTE Proph given/why not?: Unfractionated heparin SQ
[2016-12-10 15:55] VITALS: BP 98/64; PULSE 69; TEMP 36.9; O2SAT 97
--- NOTE | 2016-12-16 12:21 | EMERGENCY ROOM VISIT NOTE ---
History First contact with patient: 21:32 Chief Complaint: CONFUSION Stated Complaint: AMS, UTI Nursing Triage Summary: Patient reports she has a kidney infection and has some confusion. Patient seen here last night for same symptoms. Patient also reports dizziness. No confusion noted in triage, patient answered all questions appropriately. History of Present Illness The patient is a 61 year old female who presents to the Emergency Department by private vehicle for evaluation of her ongoing lightheadedness and confusion. The patient was seen here yesterday and diagnosed with a "kidney infection". She reports that she declines admission at this time as she felt fine. Throughout the day, she has had persistent confusion and now reports some pressure in the suprapubic area. 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 She only has her LEFT kidney remaining. She's had no fevers. She's had slight nausea. There is been no vomiting. She denies any abdominal pain but complains of some mild flank pain occasionally. She rates her current discomfort as a 6/10. She is tried nothing [id number] for symptoms. She's been using antibiotics as prescribed. She denies any blurry vision, double vision, slurred speech, facial droop, unilateral weakness/numbness, chest pain, palpitations, shortness of breath, hematochezia, melena, hematuria, or dysuria. Review of Systems A complete 10-point Review of Systems was discussed with the patient, with pertinent positives and negatives listed in the History of Present Illness. All remaining Review of Systems questions can be considered negative unless otherwise specified. Past Medical/Surgical History Medical Problems: (1) Altered mental status (2) Anemia (3) Asthma exacerbation (4) Bronchitis (5) Leukopenia (6) UTI (urinary tract infection) Family History Adopted Social History Smoking Status: Unknown if Ever Smoked Alcohol Use: none Drug Use: none Marital Status: Housing Status: lives alone Occupation Status: unemployed Current/Historical Medications Scheduled Ascorbic Acid (Ascorbic Acid), 1,000 MG PO DAILY Budesonide/Formoterol Fumarate (Symbicort 160/4.5 Inhaler ), 2 PUFFS INH BID Bupropion (Wellbutrin Sr), 150 MG PO QAM Cholecalciferol (Vitamin D), 1 TAB PO DAILY Levothyroxine Sodium (Synthroid), 75 MCG PO DAILY Montelukast Sodium (Singulair), 1 TAB PO DAILY Nutritional Supplements (Juice Plus Fibre), 4 TAB PO BID Trazodone Hcl (Trazodone), 300 MG PO HS Zolpidem Tartrate (Ambien), 0.5 TAB PO HS Scheduled PRN Albuterol Hfa (Ventolin Hfa), 1-2 PUFFS INH Q6H PRN for Shortness of Breath Dicyclomine Hcl (Bentyl), 10 MG PO DAILY PRN for Unknown Ondansetron Odt (Zofran Odt), 8 MG SL Q6H PRN for nausea associated w/ headache Rizatriptan Benzoate (Maxalt-Form Worker), 10 MG PO Q2H PRN for headache Allergies Coded Allergies: No Known Allergies (Verified , 12/08/16) Physical Exam Vital Signs Date Time Temp Pulse Resp B/P Pulse Ox O2 Delivery O2 Flow Rate FiO2 12/09/16 02:25 73 18 130/78 97 Room Air 12/09/16 00:46 75 16 132/81 99 Room Air 12/08/16 19:30 36.8 77 16 144/89 100 Room Air Pain Rating (0-10): 6 Physical Exam VITAL SIGNS - Vital signs and nursing notes were reviewed. GENERAL - 61-year-old female appearing her stated age who is in no acute distress. Communicates well with provider and answers questions appropriately. HEAD - Normocephalic, Atraumatic. No Myers's Sign or Raccoon's Eyes. No depressed skull fractures palpable. EYES - PERRL with EOMI bilaterally. Sclera anicteric. Palpebral conjunctiva pink and moist with no injection noted. EARS - No deformities of external structures noted on gross examination bilaterally. No pain elicited with palpation of the tragus bilaterally. External auditory canals without discharge or otorrhea. Tympanic membranes pearly harrison without retraction or bulging. NOSE - Midline and without cyanosis. No epistaxis or purulent drainage noted. Septum midline without deviation or septal hematoma noted. MOUTH/OROPHARYNX - Without perioral cyanosis. Buccal mucosa pink and moist and without leukoplakia. Tongue midline with equal elevation of palate bilaterally. No tonsillar hypertrophy, erythema, or exudates noted. Good dentition noted. NECK - Neck with FROM. Supple to palpation. No lymphadenopathy noted. No nuchal rigidity. LUNGS - Chest wall symmetric without accessory muscle use, intercostals retractions, or central cyanosis. Normal vesicular breath sounds CTA B/L. No wheezes, rales, or rhonchi appreciated. CARDIAC - RRR with S1/S2. No murmur, rubs, or gallops appreciated. ABDOMEN - Abdominal contour flat and without pulsations or visible masses. BS normoactive all four quadrants. No tenderness, palpable masses, hepatosplenomegaly, or ascites noted. No CVA tenderness to percussion. EXTREMITIES - No pretibial edema present. +3/5 radial and dorsalis pedis pulses palpated throughout. FROM with no tremors, fasciculations, or clonus noted on PROM throughout. +5/5 strength noted in UE/LE bilaterally. NEUROLOGIC - Cranial nerves II through XII grossly intact. Sensory intact to light touch throughout. Patellar reflexes +2/4. Patient able to perform rapid alternating movements appropriately. Negative Pronator Drift. PSYCH - A&Ox3 and cooperates fully with examiner. Pt is very pleasant and interacts well with examiner. Medical Decision & Procedures ER Provider Diagnostic Interpretation: Radiological imaging and reports were reviewed by myself. Radiologist's Interpretation as follows: MRI OF THE BRAIN WITHOUT IV CONTRAST CLINICAL HISTORY: Change in mental status. Headache. COMPARISON STUDY: CT of the brain dated 12/07/2016. MRI of the brain dated 06/12/2014. TECHNIQUE: MRI of the brain was performed utilizing various T1 and T2-weighted sequences in the axial, sagittal, and coronal planes. IV contrast was not administered for this examination. FINDINGS: Brain parenchyma: There is mild patchy subcortical and periventricular microangiopathic disease. The brain parenchyma is otherwise normal in appearance. There is no hemorrhage or mass effect. There is no restricted diffusion to suggest acute ischemia. Harrison-white matter differentiation is preserved. No extra-axial fluid collection is seen. The cerebellar tonsils are normal in configuration. Ventricles, sulci, and cisterns: Normal in configuration. Pituitary and sella: Unremarkable. Intracranial vasculature: Normal flow voids are maintained at the skull base. Orbits: The bony orbits are grossly intact. Orbital contents are normal in appearance noting bilateral ocular lens implants. Sinuses and mastoids: Clear. Calvarium: Unremarkable. Cervical cord: Partially visualized cervical spinal cord is normal in morphology and signal intensity. IMPRESSION: No acute intracranial abnormality. EXAMINATION: RENAL ULTRASOUND CLINICAL HISTORY: Left flank pain. History of right nephrectomy. COMPARISON STUDY: CT scan dated 01/21/2015 FINDINGS: The right kidney is surgically absent. The left kidney measures 12.7 cm.. There is no evidence of hydronephrosis. There are no renal masses. No bladder abnormalities are visualized. The left ureteral jet was visualized.. IMPRESSION : Surgically absent right kidney. Otherwise normal study. Laboratory Results Test 12/08/16 00:00 12/08/16 22:40 Urine Color YELLOW Urine Appearance CLOUDY (CLEAR) Urine pH 5.5 (4.5-7.5) Urine Specific [place] 1.008 (1.000-1.030) Urine Protein NEG (NEG) Urine Glucose (UA) NEG (NEG) Urine Ketones NEG (NEG) Urine Occult Blood NEG (NEG) Urine Nitrite NEG (NEG) Urine Bilirubin NEG (NEG) Urine Urobilinogen NEG (NEG) Urine Leukocyte Esterase LARGE (NEG) Urine WBC (Auto) >30 /hpf (0-5) Urine RBC (Auto) 0-4 /hpf (0-4) Urine Hyaline Casts (Auto) 0 /lpf (0-5) Urine Epithelial Cells (Auto) >30 /lpf (0-5) Urine Bacteria (Auto) NEG (NEG) Urine Pathogenic Casts /lpf (0) Erythrocyte Sedimentation Rate 2 mm/hr (0-21) Prothrombin Time 10.6 SECONDS (9.0-12.0) Prothromb Time International Ratio 1.0 (0.9-1.1) Activated Partial Thromboplast Time 28.0 SECONDS (21.0-31.0) Partial Thromboplastin Ratio 1.1 Magnesium Level 2.1 mg/dl (1.8-2.4) Total Bilirubin 0.4 mg/dl (0.2-1) Aspartate Amino Transf (AST/SGOT) 19 U/L (15-37) Alanine Aminotransferase (ALT/SGPT) 25 U/L (12-78) Alkaline Phosphatase 58 U/L (45-117) Total Creatine Kinase 72 U/L (26-192) Creatine Kinase MB 1.1 ng/ml (0.5-3.6) Creatine Kinase MB Ratio 1.5 (0-3.0) Troponin I < 0.015 ng/ml (0-0.045) C-Reactive Protein 0.31 mg/dl (0-0.29) Total Protein 6.6 gm/dl (6.4-8.2) Albumin 4.1 gm/dl (3.4-5.0) Globulin 2.5 gm/dl (2.5-4.0) Albumin/Globulin Ratio 1.6 (0.9-2) Lipase 224 U/L (73-393) Thyroid Stimulating Hormone (TSH) 1.160 uIu/ml (0.300-4.500) Random Cortisol 6.23 mcg/dl Date/Time Source Procedure Growth Status 12/08/16 00:00 Urine,Catheterized Urine Culture - Final NO GROWTH - LESS THAN 1,000 COLONIES/ML Complete Medications Administered Medications (Trade) Dose Ordered Sig/Riley Route Start Time Stop Time Status Last Admin Dose Admin Acetaminophen/ Butalbital/ Caffeine (Fioricet Tab) 2 tab NOW STAT PO 12/09/16 00:36 12/09/16 00:38 DC 12/09/16 00:43 2 TAB Ceftriaxone Sodium 1 gm 1 gm NOW STAT IV 12/09/16 01:53 12/09/16 01:54 DC 12/09/16 02:07 1 GM Sodium Chloride (Nss 1000ml) 1,000 ml @ 15 mls/hr Q24H IV 12/09/16 02:45 12/10/16 16:16 DC 12/10/16 02:59 15 MLS/HR Procedure Patient was placed on the cardiac care unit nurse and monitored throughout the entire extent of their stay. In addition, the patient's pulse oximetry was monitored throughout the entire stay. Any abnormalities or aberrancies were addressed appropriately. ECG Indication: altered mental status Rate (beats per minute): 70 Rhythm: normal sinus Findings: no acute ischemic change, no ectopy Change: no significant change (from 12/07/2016.) ED Course Patient was seen and evaluated by myself. Previous emergency department visit notes were reviewed. Labs were drawn, saline lock in place. Cath urine sample was obtained. MRI of the brain was ordered as was renal ultrasound. Laboratory results demonstrate no acute leukocytosis, worrisome anemia, or bandemia. The patient has no significant electrolyte abnormalities. Cardiac enzymes are negative. Urine results concerning for possible UTI. Imaging studies as above. Case was reviewed with my attending physician who agrees with diagnostic approach treatment plan. Case was discussed with the on-call [facility] hospitalist who admits the patient for further evaluation and management. Patient admitted in stable condition. Medical Decision Given the patient's presentation and stated complaints, I did elect to perform the above-mentioned workup. The patient presents today with ongoing symptoms of confusion as well as a UTI. She has no fever. She has no leukocytosis. 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 MRI of the brain demonstrates no organic causes for an acute confusion. Cath urine is consistent with ongoing UTI. She was treated with IV Rocephin as well as Fioricet for complaints of headache. Patient was admitted for further evaluation and management. Patient was admitted in stable condition. In the evaluation and treatment of this patient, the following differential diagnoses were considered: Migraine Headache, Intracranial Hemorrhage, Subdural Hematoma, Subarachnoid Hemorrhage, Cerebral Aneurysm, Temporal/Giant Cell Arteritis, Tension Headache, Meningitis, Encephalitis, or Hydrocephalus. Impression Primary Impression: Confusion Additional Impression: UTI (urinary tract infection) Departure Information Dispostion Admitted as an inpatient Condition FAIR Prescriptions Ondansetron Odt (ZOFRAN ODT) 8 Mg Soltab 8 MG SL Q6H Y for nausea associated w/ headache, #15 TAB 0 Refills Prov: David Gutierres MD 12/10/16 Rizatriptan Benzoate (Maxalt-Form Worker) 10 Mg Tab 10 MG PO Q2H Y for headache, #15 TAB 0 Refills max 3 tabs in 24 hours Prov: David Gutierres MD 12/10/16 Referrals Sean Clifton M.D. (PCP) Forms WORK / SCHOOL INSTRUCTIONS, HOME CARE DOCUMENTATION FORM, IMPORTANT VISIT INFORMATION Patient Instructions [facility] Problem Qualifiers Additional Impression: UTI (urinary tract infection) Urinary tract infection type: acute cystitis Hematuria presence: without hematuria Qualified Codes: N30.00 - Acute cystitis without hematuria
--- NOTE | 2016-12-16 21:51 | Discharge Summary ---
Discharge Summary Date of Service Dec 16, 2016. Discharge Summary Admission Date: Dec 09, 2016 at 02:47 Discharge Date: Dec 10, 2016 Discharge Disposition: Home Principal Diagnosis: encephalopathy - resolved Problems/Secondary Diagnoses: 1. status migraine - resolved 2. chronic leukopenia 3. asthma 4. solitary kidney status 5. depression 6. hypothyroidism Immunizations: Have You Had Influenza Vaccine: Yes Influenza Vaccine Date: May 13, 2011 History of Tetanus Vaccine?: unknown Tetanus Immunization Date: Sep 12, 2006 History of Pneumococcal: Yes Pneumococcal Date: Jun 04, 2008 History of Hepatitis B Vaccine: Yes Procedures: MRI brain - normal. MRA brain - normal. Renal ultrasound - remaining kidney - normal. Medication Reconciliation New Medications: Ondansetron Odt (Zofran Odt) 8 Mg Soltab 8 MG SL Q6H PRN for nausea associated w/ headache, #15 TAB 0 Refills Rizatriptan Benzoate (Maxalt-[employer]ment [employer]ing Associate) 10 Mg Tab 10 MG PO Q2H PRN for headache, #15 TAB 0 Refills max 3 tabs in 24 hours Continued Medications: Albuterol Hfa (Ventolin Hfa) 200 Puffs/47501 Mcg Aers 1-2 PUFFS INH Q6H PRN for Shortness of Breath, #1 INHALER Ascorbic Acid (Ascorbic Acid) 1,000 Mg Tab 1000 MG PO DAILY Budesonide/Formoterol Fumarate (Symbicort 160/4.5 Inhaler ) Aero 2 PUFFS INH BID, INHALER Bupropion (Wellbutrin Sr) 150 Mg Ertab 150 MG PO QAM, TAB Cholecalciferol (Vitamin D) 1,000 Unit Tab 1 TAB PO DAILY Dicyclomine Hcl (Bentyl) 10 Mg Cap 10 MG PO DAILY PRN for Unknown, CAP Levothyroxine Sodium (Synthroid) 75 Mcg Tab 75 MCG PO DAILY, TAB Montelukast Sodium (Singulair) 10 Mg Tab 1 TAB PO DAILY for 90 Days, #90 TAB 1 Refill Nutritional Supplements (Juice Plus Fibre) 1 Liq Liq 4 TAB PO BID Trazodone Hcl (Trazodone) 100 Mg Tab 300 MG PO HS, TAB Zolpidem Tartrate (Ambien) 5 Mg Tab 0.5 TAB PO HS, TAB Discontinued Medications: Cefdinir (Omnicef) 300 Mg Cap 300 MG PO Q12H, CAP STARTED 12/07/16 FOR 10 DAYS. HAS HAD 3 DOSES TO THIS TIME. Metoclopramide Hcl (Reglan) 5 Mg Tab 5 MG PO 3-4 X DAILY PRN for , TAB Discharge Exam Physical Exam: General Appearance: WD/WN, no apparent distress ENT: pharynx normal Neck: no JVD Respiratory/Chest: lungs clear, no respiratory distress, no accessory muscle use Cardiovascular: regular rate, rhythm, no gallop, no murmur, normal peripheral pulses Abdomen / GI: normal bowel sounds, non tender, soft, no organomegaly Extremities: no pedal edema Neurologic/Psychiatric: no motor/sensory deficits, alert, normal mood/affect , normal reflexes, oriented x 3 Skin: no rash Hospital Course HISTORY OF PRESENT ILLNESS: This is a 61yo female with a history of depression, hypothyroidism, asthma, migraine headaches s/p multiple botox injections, and solitary kidney status ( she is a kidney donor) who presented to the ED due to confusion/altered mental status. She was in the ED yesterday and was recommended to stay overnight due to having a UTI and only one kidney however the patient wanted to go home. She returned today with worsening confusion. She described this as a "fog" and inability to think. Daughter reported she has had normal thought processes but has had intermittent confusion. She reported ongoing headache for several days. She denied nausea, vomiting, urinary symptoms, diarrhea, fevers, or chills. HOSPITAL COURSE: The patient's altered mental status quickly resolved while awaiting admission in the emergency room. The exact cause of her altered mental status was unclear. However, the patient had a severe migraine headache throughout her stay and perhaps her mental "fogginess" was due to the pain of the headache. CBC showed a chronic, mildly low WBC count. Sed rate was 2. Neurological exam remained normal throughout her stay. Her migraine was treated with triptans and anti-emetics. The headache resolved prior to discharge. There was NO evidence of any infectious process during her stay. Urine culture x 2 and blood cultures were negative. She was NOT discharged home on antibiotic therapy. Finally, in light of her severe headache, MRI/MRA brain were obtained and both found to be normal. She will follow-up for routine botox injections for her chronic headaches. If she continues with headaches she may need prophylaxis for such. Total Time Spent: Greater than 30 minutes This includes examination of the patient, discharge planning, medication reconciliation, and communication with other providers. Discharge Instructions Please refer to the electronic Patient Visit Report (Discharge Instructions) for additional information. Follow-Up see Dr. Clifton within 1 week Additional Copies To Sean Clifton M.D.
[2017-02-01] MEDS ORDERED: PANT40TA PO (08:35)
[2017-02-01] MEDS ORDERED: SUCR5SUS PO (08:36)
[2017-05-18] MEDS ORDERED: BACL10TA PO (09:47)
== END 2016-12-10 16:15 | disposition home or self-care (01) | DRG 689 ==
LOC: ENRESERVTM → ENRESERVDT → CANRESERV → C.EDB 19:28 → C.MS2W 12-09 02:47
PROVIDERS: ADMIT Student in an Organized Health Care Education/Training Program; ATTEND Internal Medicine
DX: N39.0 Urinary tract infection, site not specified (principal); G93.40 Encephalopathy, unspecified; G43.909 Migraine, unspecified, not intractable, without status migrainosus; F32.9 Major depressive disorder, single episode, unspecified; J45.909 Unspecified asthma, uncomplicated; E03.9 Hypothyroidism, unspecified; Z90.5 Acquired absence of kidney; Z79.899 Other long term (current) drug therapy

== ENCOUNTER → 2016-12-16 | Outpatient (CLI) | payer OTHER ==
[~2016-12-16] MED LIST changes: +BACL10TA PO; +BUPR-79 PO; -CEFD1CAP14 PO; -DSY/150 PO; -METO1TAB54 PO; +NUTR-218 PO; +ONDA8TAB62 SL; +PANT40TA PO; +RIZA10TA19 PO; +SUCR5SUS PO; +TRAZ100T29 PO
== END | disposition home or self-care (01) ==
LOC: C.MAMM 14:44
PROVIDERS: ATTEND Internal Medicine
DX: M81.0 Age-related osteoporosis without current pathological fracture (principal); M85.89 Other specified disorders of bone density and structure, multiple sites

== ENCOUNTER → 2016-12-16 | Outpatient (CLI) | payer OTHER ==
--- NOTE | 2016-12-17 07:42 | MAMMOGRAPHY REPORT ---
BILATERAL DIGITAL SCREENING MAMMOGRAM WITH CAD: 12/16/2016 CLINICAL HISTORY: Routine screening. Patient has no complaints. TECHNIQUE: Current study was also evaluated with a Computer Aided Detection (CAD) system. Bilatera l CC and MLO views including implant displaced views were obtained. COMPARISON: Comparison is made to exams dated: 01/14/2014 mammogram, 11/06/2012 mammogram, 10/07/2009 m ammogram, and 09/07/2007 mammogram - [facility]. BREAST COMPOSITION: The tissue of both breasts is heterogeneously dense, which may obscure small ma sses. FINDINGS: No suspicious masses, calcifications, or areas of architectural distortion are noted in e ither breast. There has been no significant interval change compared to prior exams. Bilateral scat tered benign-appearing calcifications are not significantly changed. Bilateral subpectoral silicone implants are stable in appearance. IMPRESSION: ACR BI-RADS CATEGORY 2: BENIGN There is no mammographic evidence of malignancy. A 1 year screening mammogram is recommended. The p atient will receive written notification of the results. Approximately 10% of breast cancers are not detected with mammography. A negative mammographic repor t should not delay biopsy if a clinically suggestive mass is present. Rose Lane M.D. ah/:12/16/2016 15:12:03 Rim Roller Setter: Lynette PINA(R)(M), [facility] letter sent: Normal 1/2 BI-RADS Code: ACR BI-RADS Category 2: Benign
== END | disposition home or self-care (01) ==
LOC: C.MAMM 14:43
PROVIDERS: ATTEND Obstetrics & Gynecology
DX: Z12.31 Encounter for screening mammogram for malignant neoplasm of breast (principal); Z98.82 Breast implant status

== ENCOUNTER → 2017-01-17 | Outpatient (CLI) | payer OTHER ==
[2017-01-17 17:06] LABS: BASO % 0.6 %; BASO ABS # 0.03 K/uL (0-0.2); COMPLETE YES; EOS % 1.3 %; HEMATOCRIT 44.4 % (37-47); LYMPH % 33.1 %; MEAN CELL VOLUME 99.3 fL (80-100); MEAN CORPUSCULAR HEMOGLOBIN 33.1 pg (25-34); MEAN CORPUSCULAR HGB CONC 33.3 g/dl (32-36); MEAN PLATELET VOLUME 8.5 fL (7.4-10.4); MONO % 14.9 %; NEUT % 50.1 %; PLATELET COUNT 305 K/uL (130-400); RED BLOOD COUNT 4.47 M/uL (4.2-5.4); WHITE BLOOD COUNT 5.43 K/uL (4.8-10.8)
[2017-01-17 17:21] LABS: ALT/SGPT 25 U/L (12-78); AST/SGOT 14 U/L (15-37); BLOOD UREA NITROGEN 21 mg/dl (7-18); BUN/CREATININE RATIO 17.2 (10-20); CALCIUM 10.5 mg/dl (8.5-10.1); CARBON DIOXIDE 33 mmol/L (21-32); CHLORIDE 103 mmol/L (98-107); GLUCOSE 97 mg/dl (70-99); POTASSIUM 4.3 mmol/L (3.5-5.1); SODIUM 140 mmol/L (136-145)
[2017-01-17 17:24] LABS: ALB/GLOB RATIO 1.5 (0.9-2); ALKALINE PHOSPHATASE 56 U/L (45-117)
[2017-01-17 17:28] LABS: URINE APPEARANCE CLEAR (CLEAR); URINE BILIRUBIN NEG (NEG); URINE COLOR DK YELLOW; URINE EPITHELIAL CELL AUTO >30 /lpf (0-5); URINE NITRITE NEG (NEG); URINE SPECIFIC GRAVITY 1.034 (1.000-1.030); UROBILINOGEN NEG (NEG)
[2017-01-17 17:33] LABS: MANUAL MICROSCOPIC REQUIRED? NO; REVIEW REQ? YES
== END | disposition home or self-care (01) ==
LOC: C.LABBC 15:01
PROVIDERS: ATTEND Physician Assistant Medical
DX: R10.13 Epigastric pain (principal); R11.2 Nausea with vomiting, unspecified; Z87.440 Personal history of urinary (tract) infections

== ENCOUNTER → 2017-06-10 | Outpatient (CLI) | payer OTHER ==
[~2017-06-10] MED LIST changes: -SUCR5SUS PO
--- NOTE | 2017-06-10 15:32 | DIAGNOSTIC IMAGING REPORT ---
CHEST 2 VIEWS ROUTINE CLINICAL HISTORY: 61 years-old Female presenting with Asthma with acute exacerbation. TECHNIQUE: PA and lateral views of the chest were obtained. COMPARISON: 12/07/2016. FINDINGS: Cardiomediastinal silhouette normal. Lungs mildly hyperinflated. Lungs and pleural spaces clear. Osseous structures normal. Upper abdomen normal. IMPRESSION: 1. Mild hyperinflation. No focal infiltrate. Electronically signed by: Sean Jara M.D. 06/10/2017 3:30 PM Dictated Date/Time: 06/10/2017 3:30 PM
== END | disposition home or self-care (01) ==
LOC: C.RADBC 14:51
PROVIDERS: ATTEND Physician Assistant
DX: J45.901 Unspecified asthma with (acute) exacerbation (principal)

== ENCOUNTER → 2018-01-12 | Outpatient (CLI) | payer OTHER ==
[~2018-01-12] MED LIST changes: +ALEN70TA2 PO; -CHOL100010 PO; +CHOL20009 PO; +GABA-113 PO; +INDO-22 PO; +LAMO25TA PO; +LORA-741 PO; +METO-157 PO; -ONDA8TAB62 SL; +PRM625 PO; -RIZA10TA19 PO; +SCOP1DIS17 TOP; +VERA240T20 PO; +ZOLM1TAB3 PO
[2018-01-12 18:54] LABS: BASO % 0.4 %; BASO ABS # 0.02 K/uL (0-0.2); EOS % 3.7 %; HEMATOCRIT 36.3 % (37-47); HEMOGLOBIN 12.6 g/dL (12.0-16.0); IG# 0.01 K/uL (0.00-0.02); LYMPH % 28.7 %; LYMPH ABS # 1.56 K/uL (1.2-3.4); MEAN CELL VOLUME 92.4 fL (80-100); MEAN CORPUSCULAR HEMOGLOBIN 32.1 pg (25-34); MEAN CORPUSCULAR HGB CONC 34.7 g/dl (32-36); MEAN PLATELET VOLUME 8.3 fL (7.4-10.4); MONO % 9.6 %; MONO ABS # 0.52 K/uL (0.11-0.59); NEUT % 57.4 %; NEUT ABS # 3.12 K/uL (1.4-6.5); PLATELET COUNT 255 K/uL (130-400); RED CELL DISTRIBUTION WIDTH CV 12.5 % (11.5-14.5); RED CELL DISTRIBUTION WIDTH SD 42.6 fL (36.4-46.3); WHITE BLOOD COUNT 5.43 K/uL (4.8-10.8)
[2018-01-12 19:16] LABS: ALBUMIN 3.9 gm/dl (3.4-5.0); ALT/SGPT 23 U/L (12-78); AST/SGOT 16 U/L (15-37); BLOOD UREA NITROGEN 47 mg/dl (7-18); CARBON DIOXIDE 27 mmol/L (21-32); GLUCOSE 87 mg/dl (70-99); POTASSIUM 4.1 mmol/L (3.5-5.1); SODIUM 136 mmol/L (136-145)
[2018-01-12 19:26] LABS: ALKALINE PHOSPHATASE 63 U/L (45-117); TOTAL PROTEIN 6.6 gm/dl (6.4-8.2)
== END | disposition home or self-care (01) ==
LOC: C.LAB 16:36
PROVIDERS: ATTEND Physician Assistant
DX: R42 Dizziness and giddiness (principal)

== ENCOUNTER → 2018-01-18 | Outpatient (CLI) | payer OTHER ==
--- NOTE | 2018-01-18 09:26 | DIAGNOSTIC IMAGING REPORT ---
BRAIN WITHOUT CONTRAST HISTORY: Mental status change R55 [id number] TECHNIQUE: Multiplanar multisequence MRI of the brain was performed without the use of contrast. COMPARISON STUDY: None. FINDINGS: Diffusion-weighted images are considered negative for an acute ischemic event. The ventricular system is midline. The findings of mild chronic small vessel change of aging. There is minimal atrophy. There is no displacement of midline structures. Third and fourth ventricles are unremarkable. Sella and parasellar regions are unremarkable. IMPRESSION: No acute intracranial abnormality. Age-related chronic small vessel change and mild atrophy The above report was generated using voice recognition software. It may contain grammatical, syntax or spelling errors. Electronically signed by: Ibrahima Brower M.D. 01/18/2018 9:25 AM Dictated Date/Time: 01/18/2018 9:13 AM
== END | disposition home or self-care (01) ==
LOC: C.MRI 08:34
PROVIDERS: ATTEND Physician Assistant
DX: R55 Syncope and collapse (principal); R42 Dizziness and giddiness

== ENCOUNTER → 2018-01-25 | Outpatient (CLI) | payer OTHER | END | disposition home or self-care (01) | LOC: C.NEUR 07:55 | PROVIDERS: ATTEND Physician Assistant | DX: R42 Dizziness and giddiness (principal); R55 Syncope and collapse ==

== ENCOUNTER → 2018-01-26 | Outpatient (CLI) | payer OTHER ==
[2018-01-26 18:42] LABS: BLOOD UREA NITROGEN 36 mg/dl (7-18); CARBON DIOXIDE 28 mmol/L (21-32); CREATININE 1.13 mg/dl (0.60-1.20); GLUCOSE 91 mg/dl (70-99); POTASSIUM 4.3 mmol/L (3.5-5.1); SODIUM 135 mmol/L (136-145)
== END | disposition home or self-care (01) ==
LOC: C.LAB 17:42
PROVIDERS: ATTEND Physician Assistant
DX: R42 Dizziness and giddiness (principal)

== ENCOUNTER → 2018-05-01 | Outpatient (CLI) | payer OTHER ==
[2018-05-01 09:56] LABS: CALCIUM 9.3 mg/dl (8.5-10.1)
== END | disposition home or self-care (01) ==
LOC: C.LAB1850 07:04
PROVIDERS: ATTEND Internal Medicine Rheumatology
DX: Z11.59 Encounter for screening for other viral diseases (principal); K21.9 Gastro-esophageal reflux disease without esophagitis

== ENCOUNTER 2023-11-24 20:15 | Observation (INO) ==
[2023-11-24 21:25] LABS: Basophils # (auto) 0.04 K/uL (0.00-0.20); Basophils % (auto) 0.9 %; Eosinophils # (auto) 0.16 K/uL (0.00-0.50); Eosinophils % (auto) 3.6 %; Hemoglobin 12.6 g/dl (12.0-16.0); Immature Granulocytes # (auto) 0.01 K/uL (0.01-0.20); Immature Granulocytes % (auto) 0.2 %; Lymphocytes # (auto) 1.96 K/uL (1.20-3.40); Lymphocytes % (auto) 44.2 %; Mean Corpuscular Hemoglobin 32.6 pg (25.0-34.0); Mean Corpuscular Hgb Conc 34.1 g/dL (32.0-36.0); Mean Corpuscular Volume 95.6 fL (80.0-100.0); Mean Platelet Volume 8.5 fL (9.4-12.4); Monocytes # (auto) 0.41 K/uL (0.11-0.59); Monocytes % (auto) 9.3 %; Neutrophils # (auto) 1.85 K/uL (1.40-6.50); Neutrophils % (auto) 41.8 %; Platelet Count 254 K/uL (130-400); RDW Coefficient of Variation 13.3 % (11.5-14.5); RDW Standard Deviation 47.3 fL (36.4-46.3); Red Blood Count 3.87 M/uL (4.20-5.40); White Blood Count 4.43 K/ul (4.8-10.8)
--- NOTE | 2023-11-24 21:25 | CT Scan Report ---
Exam(s): CT HEAD Without Contrast EXAM: CT Head Without Intravenous Contrast CLINICAL HISTORY: Reason for exam: Neuro deficit, acute, stroke suspected. TECHNIQUE: Axial computed tomography images of the head/brain without intravenous contrast. CTDI is 37.78 mGy and DLP is 547.75 mGy-cm. Automated exposure control was utilized for the study. A dose lowering technique was utilized adhering to the principles of ALARA. COMPARISON: No relevant prior studies available. FINDINGS: No acute intracranial hemorrhage. No midline shift or mass effect. The territorial becker-white matter differentiation is maintained throughout. Age-related cerebral volume loss. Periventricular and subcortical white matter hypoattenuation, consistent with chronic microangiopathy. The visualized orbits appear grossly unremarkable. The calvarium is intact. The visualized paranasal sinuses and mastoid air cells are grossly clear. IMPRESSION: No acute intracranial hemorrhage, midline shift, or mass effect. Electronically signed by: Amish York MD 11/24/23 21:24 PM
[2023-11-24 21:34] LABS: Partial Thromboplastin Time 27 Seconds (21-31); Prothrombin Time 10.7 Seconds (9.0-12.0)
[2023-11-24 21:36] LABS: Albumin Level 4.2 gm/dl (3.4-5.0); Bilirubin,Total 0.4 mg/dl (0.2-1.0); Calcium 8.8 mg/dl (8.6-10.3); Potassium 3.3 mmol/L (3.5-5.1)
[2023-11-24 21:42] LABS: Albumin Globulin Ratio 1.9 (0.9-2); BUN Creatinine Ratio 12.8 (10-20); Creatinine Clr Calc Pharmacy 50.8 ml/min; Est GFR (African American) 71.7 ml/min; Est GFR (Non-African American) 61.9 ml/min; Globulin 2.2 gm/dl (2.5-4.0); Total Protein 6.4 gm/dl (6.0-8.3)
[2023-11-24 21:45] LABS: Appearance Urine Clear (Clear); Bilirubin Urine Negative (Negative); Blood Urine Negative (Negative); Color Urine Yellow; Glucose Urine UA Negative (Negative); Ketones Urine Negative (Negative); Leukocyte Esterase Urine Negative (Negative); Nitrite Urine Negative (Negative); Protein Urine Negative (Negative); Specific Gravity Urine 1.019 (1.000-1.030); Urobilinogen Urine Negative (Negative)
[2023-11-24] MEDS: OPTIRAY 320 100ml IV ONE (21:53)
[2023-11-24 21:57] LABS: Adenovirus PCR Not Detected (NotDetected); Bordetella parapertussis PCR Not Detected (NotDetected); Bordetella pertussis PCR Not Detected (NotDetected); Chlamydia pneumoniae PCR Not Detected (NotDetected); Coronavirus 229E PCR Not Detected (NotDetected); Coronavirus CoV-2 (COVID19)PCR Not Detected (NotDetected); Coronavirus HKU1 PCR Not Detected (NotDetected); Coronavirus NL63 PCR Not Detected (NotDetected); Coronavirus OC43PCR Not Detected (NotDetected); Human Metapneumovirus PCR Not Detected (NotDetected); Influenza A PCR Not Detected (NotDetected); Influenza B PCR Not Detected (NotDetected); Mycoplasma pneumoniae PCR Not Detected (NotDetected); Parainfluenza Virus 1 PCR Not Detected (NotDetected); Parainfluenza Virus 2 PCR Not Detected (NotDetected); Parainfluenza Virus 3 PCR Not Detected (NotDetected); Parainfluenza Virus 4 PCR Not Detected (NotDetected); Respiratory Syncytial VirusPCR Not Detected (NotDetected); Rhinovirus/Enterovirus PCR Not Detected (NotDetected)
[2023-11-24 22:27] LABS: Troponin I High Sensitivity 6.8 pg/ml (0-14)
--- NOTE | 2023-11-24 22:38 | CT Scan Report ---
Exam(s): CT ABDOMEN + PELVIS With Contrast IV Amt: 90 ml opti 320 EXAM: CT Abdomen and Pelvis With Intravenous Contrast CLINICAL HISTORY: Reason for exam: nvd. TECHNIQUE: Axial computed tomography images of the abdomen and pelvis with intravenous contrast. CTDI is 11.54 mGy and DLP is 482.4 mGy-cm. Automated exposure control was utilized for the study. A dose lowering technique was utilized adhering to the principles of ALARA. CONTRAST: Patient received 90 ml opti 320 of IV contrast COMPARISON: No relevant prior studies available. FINDINGS: Lung bases: Unremarkable. No mass. No consolidation. ABDOMEN: Liver: Hepatic steatosis. Gallbladder and bile ducts: Unremarkable. No calcified stones. No ductal dilation. Normal gallbladder. Pancreas: Unremarkable. No mass. No ductal dilation. Spleen: Unremarkable. No splenomegaly. Adrenals: Unremarkable. No mass. Kidneys and ureters: RIGHT nephrectomy. Stomach and bowel: Moderate fecal retention, correlate for constipation. Diverticulosis, without acute diverticulitis. No small bowel obstruction. No free air. PELVIS: Appendix: No findings to suggest acute appendicitis. Bladder: Decompressed urinary bladder. Reproductive: Unremarkable as visualized. ABDOMEN and PELVIS: Intraperitoneal space: See above. Bones/joints: Degenerative changes of the spine. No acute fracture. No dislocation. Soft tissues: Unremarkable. Vasculature: Atherosclerotic changes of the aorta. No abdominal aortic aneurysm. Lymph nodes: Unremarkable. No enlarged lymph nodes. IMPRESSION: 1. RIGHT nephrectomy. 2. Moderate fecal retention, correlate for constipation. 3. Diverticulosis, without acute diverticulitis. No small bowel obstruction. No free air. Electronically signed by: Amish York MD 11/24/23 22:37 PM
[2023-11-24] MEDS: METOCLOPRAMIDE HCL INJ 5 MG/ML 2 ML VIAL IV ONE (23:41)
[2023-11-24] MEDS: diphenhydrAMINE 50 MG/ML VIAL IV STA (23:42)
--- NOTE | 2023-11-25 00:19 | History & Physical Report ---
Date of Service November 25, 2023 Assessment & Plan (1) Nausea and vomiting: Plan: Etiology unclear. -Check tick-borne labs -Check stool biofire -Observation to medical -Continue Compazine -Gentle IVF LR at 80mL/hr x 2L -Continue home Reglan -Continue Bentyl (2) Asthma: Plan: Chronic. No cough, SOB or wheeze -Continue Fluticasone/Vilanterol -Albuterol PRN (3) Hypothyroidism: Plan: Chronic. Stable -Continue Synthroid (4) Depression with anxiety: Plan: Chronic -Continue home medications - Venlafaxine 150mg + 37.5mg daily -Continue Trazodone (5) Migraine: Plan: Patient complains of mild ANNE now -Continue Topamax 100mg po BID -Continue Nurtec History of Present Illness Chief Complaint: confusion, nausea Primary Care Provider: Raymond Vásquez DO Hugh Eric is a 68yo female presenting with dizziness, imbalance, nausea a nd headache. She reports not feeling well for several days - watery diarrhea, poor appetite and decreased oral intake. She reports abrupt onset of generalized weakness as well as confusion this afternoon. She had nausea with multiple episodes of non-bloody/non-bilious vomiting in the ER. No sick contacts, recent travel or medication changes. Family was initially at bedside (unfortunately they left prior to my arrival) - voiced concern that the patient is confused as well. Allergies Allergy/AdvReac Type Severity Reaction Status Date / Time tree and shrub pollen Allergy Verified 09/07/23 14:26 morphine AdvReac Intermediate Vomiting Verified 09/07/23 14:26 Home Medications Medication Instructions Recorded Confirmed Type ascorbic acid (vitamin C) 500 mg 1,000 mg PO QAM 05/23/18 11/25/23 History capsule bupropion HCl 150 mg tablet,12 hr 150 mg PO QAM 05/23/18 11/25/23 History sustained-release (Wellbutrin SR) calcium carbonate 600 mg calcium 600 mg PO QPM 07/11/20 11/25/23 History (1,500 mg) tablet venlafaxine 150 mg 150 mg PO QAM 03/16/21 11/25/23 History capsule,extended release 24 hr (Effexor XR) zinc 50 mg tablet 50 mg PO QPM 07/16/21 11/25/23 History trazodone 100 mg tablet 200 mg PO HS 01/06/22 11/25/23 History venlafaxine 37.5 mg 37.5 mg PO QAM 01/06/22 11/25/23 History capsule,extended release 24 hr budesonide 32 mcg/actuation nasal 2 spray intranasal QAM #8.43 mL 07/22/22 11/25/23 Rx spray onabotulinumtoxinA 100 unit 0 unit intradermal Q3M 11/15/22 11/25/23 History solution for injection (Botox) dicyclomine 10 mg capsule 10 mg PO TID #270 caps 12/03/22 11/25/23 Rx Advair Diskus 100 mcg-50 mcg/dose 1 inh inhalation BID #60 ea 06/17/23 11/25/23 Rx powder for inhalation (fluticasone propion-salmeterol) cyclobenzaprine 10 mg tablet 10 mg PO BID PRN muscle spasm or 07/11/23 11/25/23 Rx tension #60 tabs rimegepant 75 mg disintegrating See Rx Instructions .Route 07/29/23 11/25/23 Rx tablet (Nurtec ODT) .COMPLEX #8 tabs metoclopramide HCl 5 mg tablet 5 mg PO BID #60 tabs 10/17/23 11/25/23 Rx omeprazole 20 mg capsule,delayed 20 mg PO QAM #90 caps 10/17/23 11/25/23 Rx release budesonide-formoterol HFA 80 1 puff inhalation BID 11/25/23 11/25/23 History mcg-4.5 mcg/actuation aerosol inhaler levothyroxine 75 mcg tablet 75 mcg PO DAILY 11/25/23 11/25/23 History topiramate 100 mg tablet 100 mg PO BID 11/25/23 11/25/23 History Past Med/Surg History Medical History GERD (gastroesophageal reflux disease) Asthma well controlled w/ inhaler History of blood clotting disorder pt denies Allergic rhinitis Adopted Adverse reaction to anesthetic agent Extreme nausea Lumbar facet joint syndrome Irritable bowel syndrome Basal cell carcinoma (BCC) Left cheek s/p Mohs 03/2015 - Follows with [facility] for skin checks/biopsies Dysphagia s/p EGD with dilation 05/25/2019, 06/17/22 Chronic migraine without aura Manages with Botox injections q90d with [facility] pain management. Depression with anxiety Hypothyroidism Prolonged QT interval QTc 446 on EKG 06/12/2014 Leukopenia hx Anemia HX Surgical History History of hernia repair History of kidney donation History of esophagogastroduodenoscopy (EGD) 06/17/22 [facility] 05/25/2019 Dx Dysphagia. Dilation completed. Normal esophagus, stomach and duodenum. No specimens collected. History of nephrectomy donor nephrectomy performed at [facility] in 2002 History of breast surgery lumpectomy History of hysterectomy History of colonoscopy 05/25/19 - Benign adenomatous polyps x 2 cecum. Hemorrhoids noted. Otherwise unremarkable exam. F/U 2023. History of bladder surgery History of back surgery Family History Other Adopted Social History Smoking Status: Never smoker Second Hand Exposure: No; Do You Dip or Chew Tobacco: No; Tobacco Cessation Education Requested by Patient: No Hx Alcohol Use: No Hx Substance Use: No Preferred Language: Angolan Communication Ability: Effective Visual Impairment: Limited Hearing Ability: Normal Heel Coverer Required: No Beliefs That Will Affect Care: None marital status: Current Living Situation: Alone current occupational status: employed current occupation: Private Care How many Children do You have: 3 Other Information That Helps Us Care for You: No Feels Safe at Home: Yes Safety Concerns: Feels Safe At This Time Childhood Exposure to Second-Hand Smoke: No Diet: regular caffeine: No Dental Care, Regularly: Yes Physical Activity Frequency: Daily Seatbelt Use: always Sunscreen Use: Yes Assistive Devices: Contacts Review of Systems Review of Systems: All systems reviewed & are unremarkable except as noted in HPI & below Physical Exam Physical Exam: General: patient resting comfortably, NAD, non-toxic in appearance, AA&O x 4 Skin: warm, dry, intact, no rashes or lesions HEENT: NC/AT, PERRL, EOMI, anicteric sclera, conjunctiva without injection, external ear normal to inspection and nontender, nares patent, moist mucus membranes, dentition intact, no oropharyngeal lesions, neck supple, trachea midline, no LAD, no thyromegaly, no JVD Heart: +S1/S2, regular, no m/r/g Lungs: equal air entry bilaterally, no rales/rhonchi/wheezes Abd: +BS, soft, NT/ND, no masses/organomegaly/ascites Ext: warm, 2+ pulses in UE/LE bilaterally, no clubbing/cyanosis or edema Neuro: nonfocal, patient AA&O x 4, speech intact, no facial droop, moving all extremities on command with equal strength 5/5 Results & Data Results & Data Vital Signs (Past 12 Hours) Vital Signs Temp Pulse Pulse Resp BP BP Pulse Ox 11/24/23 22:44 74 14 156/94 H 98 11/24/23 21:33 65 11/24/23 20:19 36.8 C 88 18 126/85 98 O2 Del Method 11/24/23 22:44 Room Air 11/24/23 21:33 11/24/23 20:19 Room Air Laboratory Results Laboratory Results WBC 4.43 K/ul (4.8-10.8) L 11/24/23 20:40 RBC 3.87 M/uL (4.20-5.40) L 11/24/23 20:40 Hgb 12.6 g/dl (12.0-16.0) 11/24/23 20:40 Hct 37.0 % (37.0-47.0) 11/24/23 20:40 MCV 95.6 fL (80.0-100.0) 11/24/23 20:40 MCH 32.6 pg (25.0-34.0) 11/24/23 20:40 MCHC 34.1 g/dL (32.0-36.0) 11/24/23 20:40 RDW Std Deviation 47.3 fL (36.4-46.3) H 11/24/23 20:40 RDW Coeff of Henny 13.3 % (11.5-14.5) 11/24/23 20:40 Plt Count 254 K/uL (130-400) 11/24/23 20:40 MPV 8.5 fL (9.4-12.4) L 11/24/23 20:40 Immature Gran % (Auto) 0.2 % 11/24/23 20:40 Neut % (Auto) 41.8 % 11/24/23 20:40 Lymph % (Auto) 44.2 % 11/24/23 20:40 [place] % (Auto) 9.3 % 11/24/23 20:40 Eos % (Auto) 3.6 % 11/24/23 20:40 Baso % (Auto) 0.9 % 11/24/23 20:40 Neut # (Auto) 1.85 K/uL (1.40-6.50) 11/24/23 20:40 Lymph # (Auto) 1.96 K/uL (1.20-3.40) 11/24/23 20:40 [place] # (Auto) 0.41 K/uL (0.11-0.59) 11/24/23 20:40 Eos # (Auto) 0.16 K/uL (0.00-0.50) 11/24/23 20:40 Baso # (Auto) 0.04 K/uL (0.00-0.20) 11/24/23 20:40 Immature Gran # (Auto) 0.01 K/uL (0.01-0.20) 11/24/23 20:40 PT 10.7 Seconds (9.0-12.0) 11/24/23 20:40 INR 1.0 (0.9-1.1) 11/24/23 20:40 APTT 27 Seconds (21-31) 11/24/23 20:40 PTT Ratio 1.0 11/24/23 20:40 Sodium 141 mmol/L (136-145) 11/24/23 20:57 Potassium 3.3 mmol/L (3.5-5.1) L 11/24/23 20:57 Chloride 111 mmol/L (98-107) H 11/24/23 20:57 Carbon Dioxide 20 mmol/L (21-32) L 11/24/23 20:57 Anion Gap 10 (3-11) 11/24/23 20:57 BUN 12 mg/dl (6-23) 11/24/23 20:57 Creatinine 0.94 mg/dl (0.6-1.2) 11/24/23 20:57 Est Cr Clr Drug Dosing 50.8 ml/min 11/24/23 20:57 Est GFR ( Amer) 71.7 ml/min 11/24/23 20:57 Est GFR (Non-Af Amer) 61.9 ml/min 11/24/23 20:57 BUN/Creatinine Ratio 12.8 (10-20) 11/24/23 20:57 Glucose 109 mg/dl (70-99(Fasting)) H 11/24/23 20:57 Calcium 8.8 mg/dl (8.6-10.3) 11/24/23 20:57 Magnesium 2.0 mg/dl (1.7-2.4) 11/24/23 20:57 Total Bilirubin 0.4 mg/dl (0.2-1.0) 11/24/23 20:57 AST 18 U/L (13-39) 11/24/23 20:57 ALT 14 U/L (7-52) 11/24/23 20:57 Alkaline Phosphatase 51 U/L (34-104) 11/24/23 20:57 Troponin I High Sens 6.8 pg/ml (0-14) 11/24/23 20:57 Total Protein 6.4 gm/dl (6.0-8.3) 11/24/23 20:57 Albumin 4.2 gm/dl (3.4-5.0) 11/24/23 20:57 Globulin 2.2 gm/dl (2.5-4.0) L 11/24/23 20:57 Albumin/Globulin Ratio 1.9 (0.9-2) 11/24/23 20:57 Lipase 37 U/L (11-82) 11/24/23 20:57 TSH 1.366 uIu/ml (0.300-4.500) 11/24/23 20:57 Urine Color Yellow 11/24/23 21:31 Urine Appearance Clear (Clear) 11/24/23 21:31 Urine pH 5.0 (4.5-7.5) 11/24/23 21:31 Ur Specific [place] 1.019 (1.000-1.030) 11/24/23 21:31 Urine Protein Negative (Negative) 11/24/23 21:31 Urine Glucose (UA) Negative (Negative) 11/24/23 21:31 Urine Ketones Negative (Negative) 11/24/23 21:31 Urine Blood Negative (Negative) 11/24/23 21:31 Urine Nitrite Negative (Negative) 11/24/23 21:31 Urine Bilirubin Negative (Negative) 11/24/23 21:31 Urine Urobilinogen Negative (Negative) 11/24/23 21:31 Ur Leukocyte Esterase Negative (Negative) 11/24/23 21:31 Stl C. diff Tox B Gene Negative Cdiff Gene (Neg) 11/25/23 03:35 Adenovirus (PCR) Not Detected (NotDetected) 11/24/23 20:40 B. pertussis DNA (PCR) Not Detected (NotDetected) 11/24/23 20:40 B.parapertussis DNA PCR Not Detected (NotDetected) 11/24/23 20:40 C. pneumoniae DNA (PCR) Not Detected (NotDetected) 11/24/23 20:40 Coronavirus OC43 (PCR) Not Detected (NotDetected) 11/24/23 20:40 Coronavirus HKU1 (PCR) Not Detected (NotDetected) 11/24/23 20:40 Coronavirus 229E (PCR) Not Detected (NotDetected) 11/24/23 20:40 SARS-CoV-2 (PCR) Not Detected (NotDetected) 11/24/23 20:40 Coronavirus NL63 (PCR) Not Detected (NotDetected) 11/24/23 20:40 Human Metapneumovir PCR Not Detected (NotDetected) 11/24/23 20:40 Influenza Type A (PCR) Not Detected (NotDetected) 11/24/23 20:40 Influenza Type B (PCR) Not Detected (NotDetected) 11/24/23 20:40 M. pneumoniae (PCR) Not Detected (NotDetected) 11/24/23 20:40 Parainfluenza 1 (PCR) Not Detected (NotDetected) 11/24/23 20:40 Parainfluenza 2 (PCR) Not Detected (NotDetected) 11/24/23 20:40 Parainfluenza 3 (PCR) Not Detected (NotDetected) 11/24/23 20:40 Parainfluenza 4 (PCR) Not Detected (NotDetected) 11/24/23 20:40 RSV (PCR) Not Detected (NotDetected) 11/24/23 20:40 Entero/Rhino (PCR) Not Detected (NotDetected) 11/24/23 20:[address] 11/24/23 20:33 Exam(s): CT HEAD Without Contrast EXAM: CT Head Without Intravenous Contrast CLINICAL HISTORY: Reason for exam: Neuro deficit, acute, stroke suspected. TECHNIQUE: Axial computed tomography images of the head/brain without intravenous contrast. CTDI is 37.78 mGy and DLP is 547.75 mGy-cm. Automated exposure control was utilized for the study. A dose lowering technique was utilized adhering to the principles of ALARA. COMPARISON: No relevant prior studies available. FINDINGS: No acute intracranial hemorrhage. No midline shift or mass effect. The territorial becker-white matter differentiation is maintained throughout. Age-related cerebral volume loss. Periventricular and subcortical white matter hypoattenuation, consistent with chronic microangiopathy. The visualized orbits appear grossly unremarkable. The calvarium is intact. The visualized paranasal sinuses and mastoid air cells are grossly clear. IMPRESSION: No acute intracranial hemorrhage, midline shift, or mass effect. Electronically signed by: Amish York MD 11/24/23 21:24 PM Abdomen/Pelvis CT 11/24/23 21:10 Exam(s): CT ABDOMEN + PELVIS With Contrast IV Amt: 90 ml opti 320 EXAM: CT Abdomen and Pelvis With Intravenous Contrast CLINICAL HISTORY: Reason for exam: nvd. TECHNIQUE: Axial computed tomography images of the abdomen and pelvis with intravenous contrast. CTDI is 11.54 mGy and DLP is 482.4 mGy-cm. Automated exposure control was utilized for the study. A dose lowering technique was utilized adhering to the principles of ALARA. CONTRAST: Patient received 90 ml opti 320 of IV contrast COMPARISON: No relevant prior studies available. FINDINGS: Lung bases: Unremarkable. No mass. No consolidation. ABDOMEN: Liver: Hepatic steatosis. Gallbladder and bile ducts: Unremarkable. No calcified stones. No ductal dilation. Normal gallbladder. Pancreas: Unremarkable. No mass. No ductal dilation. Spleen: Unremarkable. No splenomegaly. Adrenals: Unremarkable. No mass. Kidneys and ureters: RIGHT nephrectomy. Stomach and bowel: Moderate fecal retention, correlate for constipation. Diverticulosis, without acute diverticulitis. No small bowel obstruction. No free air. PELVIS: Appendix: No findings to suggest acute appendicitis. Bladder: Decompressed urinary bladder. Reproductive: Unremarkable as visualized. ABDOMEN and PELVIS: Intraperitoneal space: See above. Bones/joints: Degenerative changes of the spine. No acute fracture. No dislocation. Soft tissues: Unremarkable. Vasculature: Atherosclerotic changes of the aorta. No abdominal aortic aneurysm. Lymph nodes: Unremarkable. No enlarged lymph nodes. IMPRESSION: 1. RIGHT nephrectomy. 2. Moderate fecal retention, correlate for constipation. 3. Diverticulosis, without acute diverticulitis. No small bowel obstruction. No free air. Electronically signed by: Amish York MD 11/24/23 22:37 PM PG Care Time/CCT Total # of Minutes Spent Total Time Spent with Patient: Total time spent is greater than 50% in coordination of care (as documented) at patient's floor/unit and/or counseling patient: Coding Level of Care Code 67354 INT INP/OBS CARE 2/55MIN Diagnoses Nausea and vomiting R11.2 Vomiting type: unspecified Mild intermittent asthma without complication J45.20 Asthma severity: mild Asthma persistence: intermittent Asthma complication type: uncomplicated Acquired hypothyroidism E03.9 Hypothyroidism type: acquired Depression with anxiety F41.8 Migraine G43.909 (1) Nausea and vomiting Vomiting type: unspecified Qualified Code(s): R11.2 - Nausea with vomiting, unspecified (2) Asthma Asthma severity: mild Asthma persistence: intermittent Asthma complication type: uncomplicated Qualified Code(s): J45.20 - Mild intermittent asthma, uncomplicated (3) Hypothyroidism Hypothyroidism type: acquired Qualified Code(s): E03.9 - Hypothyroidism, unspecified
--- NOTE | 2023-11-25 00:35 | Emergency Department Note ---
History of Present Illness General Chief complaint: Illness Stated complaint: WEAKNESS, HEADACHE,STUTTERING SPEECH, CONFUSION, Time Seen by Provider: 11/24/23 20:51 Source: patient and family History of Present Illness Provider complaint: Weakness 68-year-old female presents emergency department with her daughter and grandson for weakness. Family reports that the patient has been increasingly weak today. They reports she had nausea vomiting and diarrhea. They reports she was starting her speech having headache and more confused than normal. No falls. No blood thinners. Home Medications Medication Instructions Recorded Confirmed Type ascorbic acid (vitamin C) 500 mg 1,000 mg PO QAM 05/23/18 11/25/23 History capsule bupropion HCl 150 mg tablet,12 hr 150 mg PO QAM 05/23/18 11/25/23 History sustained-release (Wellbutrin SR) calcium carbonate 600 mg calcium 600 mg PO QPM 07/11/20 11/25/23 History (1,500 mg) tablet venlafaxine 150 mg 150 mg PO QAM 03/16/21 11/25/23 History capsule,extended release 24 hr (Effexor XR) zinc 50 mg tablet 50 mg PO QPM 07/16/21 09/07/23 History trazodone 100 mg tablet 200 mg PO HS 01/06/22 11/25/23 History venlafaxine 37.5 mg 37.5 mg PO QAM 01/06/22 11/25/23 History capsule,extended release 24 hr budesonide 32 mcg/actuation nasal 2 spray intranasal QAM #8.43 mL 07/22/22 11/25/23 Rx spray onabotulinumtoxinA 100 unit 0 unit intradermal Q3M 11/15/22 09/07/23 History solution for injection (Botox) dicyclomine 10 mg capsule 10 mg PO TID #270 caps 12/03/22 11/25/23 Rx zolpidem 5 mg tablet 2.5 mg PO HS 04/04/23 09/07/23 History Advair Diskus 100 mcg-50 mcg/dose 1 inh inhalation BID #60 ea 06/17/23 09/07/23 Rx powder for inhalation (fluticasone propion-salmeterol) cyclobenzaprine 10 mg tablet 10 mg PO BID PRN muscle spasm or 07/11/23 11/25/23 Rx tension #60 tabs rimegepant 75 mg disintegrating See Rx Instructions .Route 07/29/23 11/25/23 Rx tablet (Nurtec ODT) .COMPLEX #8 tabs metoclopramide HCl 5 mg tablet 5 mg PO BID #60 tabs 10/17/23 11/25/23 Rx omeprazole 20 mg capsule,delayed 20 mg PO QAM #90 caps 10/17/23 11/25/23 Rx release budesonide-formoterol HFA 80 1 puff inhalation BID 11/25/23 11/25/23 History mcg-4.5 mcg/actuation aerosol inhaler levothyroxine 75 mcg tablet 75 mcg PO DAILY 11/25/23 11/25/23 History topiramate 100 mg tablet 100 mg PO BID 11/25/23 11/25/23 History Allergies Allergy/AdvReac Type Severity Reaction Status Date / Time tree and shrub pollen Allergy Verified 09/07/23 14:26 morphine AdvReac Intermediate Vomiting Verified 09/07/23 14:26 Past Med/Surg History Medical History GERD (gastroesophageal reflux disease) Asthma well controlled w/ inhaler History of blood clotting disorder pt denies Allergic rhinitis Adopted Adverse reaction to anesthetic agent Extreme nausea Lumbar facet joint syndrome Irritable bowel syndrome Basal cell carcinoma (BCC) Left cheek s/p Mohs 03/2015 - Follows with [facility] for skin checks/biopsies Dysphagia s/p EGD with dilation 05/25/2019, 06/17/22 Chronic migraine without aura Manages with Botox injections q90d with [facility] pain management. Depression with anxiety Hypothyroidism Prolonged QT interval QTc 446 on EKG 06/12/2014 Leukopenia hx Anemia HX Surgical History History of hernia repair History of kidney donation History of esophagogastroduodenoscopy (EGD) 06/17/22 [facility] 05/25/2019 Dx Dysphagia. Dilation completed. Normal esophagus, stomach and duodenum. No specimens collected. History of nephrectomy donor nephrectomy performed at [facility] in 2002 History of breast surgery lumpectomy History of hysterectomy History of colonoscopy 05/25/19 - Benign adenomatous polyps x 2 cecum. Hemorrhoids noted. Otherwise unremarkable exam. F/U 2023. 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 Beliefs That Will Affect Care: None marital status: Current Living Situation: Alone current occupational status: employed current occupation: Private [employer] How many Children do You have: 3 Feels Safe at Home: Yes Childhood Exposure to Second-Hand Smoke: No Diet: regular caffeine: No Dental Care, Regularly: Yes Physical Activity Frequency: Daily Seatbelt Use: always Sunscreen Use: Yes Assistive Devices: Contacts and Glasses Physical Exam Vital Signs Vital Signs - 24 hr 11/24/23 20:19 11/24/23 21:33 11/24/23 22:44 Temperature 36.8 C Temperature Source Temporal Artery Scan Pulse Rate 88 65 Pulse Rate [Right Finger] 74 Respiratory Rate 18 14 Respiratory Effort / Characteristics Non-Labored Respiratory Depth Normal Blood Pressure 126/85 Blood Pressure [Right Arm] 156/94 H Blood Pressure Mean 98 Blood Pressure Mean [Right Arm] 114 Pulse Oximetry 98 98 Oxygen Delivery Method Room Air Room Air Sepsis Recent Fever Within 48 Hours No Sepsis New/Unexplained Change in Mental Status No Sepsis Action Taken by Nursing No Action Required Physical Exam HENT: Exam performed. -Head: Normocephalic and atraumatic. -Right Ear: External ear normal. No mastoid erythema -Left Ear: External ear normal. No mastoid erythema -Mouth/Throat: The oropharynx is clear and moist. No trismus in the jaw. No dental abscesses or uvula swelling. No oropharyngeal exudate or tonsillar abscesses. EYES: Conjunctivae and EOM are normal. Pupils are equal, round, and reactive to light. Right eye exhibits no discharge. Left eye exhibits no discharge. No scleral icterus. NECK: Normal range of motion. Neck supple. No JVD present. No carotid bruit present. No rigidity. No tracheal deviation and normal range of motion present. CV: Normal rate, regular rhythm, normal heart sounds and intact distal pulses. There is no peripheral edema. Palpable radial pulses bue. PULM/CHEST: Effort normal and breath sounds normal. No respiratory distress. No stridor. She has no wheezes. She has no rales. ABD: The abdomen is soft. She has no distension. No mass is present. There is no tenderness. There is no rebound, no guarding. MUSC/SKEL: Normal range of motion. There is no peripheral edema, tenderness or deformity. LYMPH: No cervical adenopathy. NEURO: She is alert and oriented to person, place, and time. She has normal strength. No cranial nerve deficit or sensory deficit. Coordination normal. GCS eye subscore is 4. GCS verbal subscore is 5. GCS motor subscore is 6. Cerebellar tests wnl. SKIN: Skin is warm and dry. She is not diaphoretic. PSYCH: She has a normal mood and affect. Behavior is normal. Judgment and thought content normal. Course Course 2050: The patient was evaluated in room B10. A complete history and physical exam was performed Cardiac monitoring: An order was placed for continuous cardiac monitoring. The monitor shows a rate of 80 with sinus rhythm interpreted by mo 0035: Vital signs stable. Labs within normal limits with exception of potassium 3.3. Imaging within normal limits. On reassessment the patient was alert and oriented x 3 no pain on palpation of the abdomen. Family reports they are comfortable taking the patient home as the patient was very confused prior to arrival in the emergency department slurring her words. Family states that the patient was at home and they are concerned she will not be safe at home will fall. Discussed these concerns with [facility] team Dr. Go who will evaluate the patient for admission. Administered Medications Discontinued Medications Diphenhydramine HCl (Diphenhydramine 50 Mg/Ml Vial) 12.5 mg IV NOW STA Stop: 11/24/23 23:34 Last Admin: 11/24/23 23:42 Dose: 12.5 mg Documented By: DEEDEE Ioversol (Optiray 320 100ml) 90 ml IV ONCE ONE Stop: 11/24/23 21:53 Last Admin: 11/24/23 21:53 Dose: 90 ml Documented By: TREV Metoclopramide HCl (Metoclopramide Hcl Inj 5 Mg/Ml 2 Ml Vial) 2.5 mg IV ONE ONE Stop: 11/24/23 23:34 Last Admin: 11/24/23 23:41 Dose: 2.5 mg Documented By: DEEDEE Medical Decision Making Laboratory Data Attestation: I reviewed the patient's lab results. 11/24/23 20:40 11/24/23 20:57 Lab Results 11/24/23 11/24/23 11/24/23 Range/Units 20:40 20:57 21:31 WBC 4.43 L (4.8-10.8) K/ul RBC 3.87 L (4.20-5.40) M/uL Hgb 12.6 (12.0-16.0) g/dl Hct 37.0 (37.0-47.0) % MCV 95.6 (80.0-100.0) fL MCH 32.6 (25.0-34.0) pg MCHC 34.1 (32.0-36.0) g/dL RDW Std Deviation 47.3 H (36.4-46.3) fL RDW Coeff of Henny 13.3 (11.5-14.5) % Plt Count 254 (130-400) K/uL MPV 8.5 L (9.4-12.4) fL Immature Gran % (Auto) 0.2 % Neut % (Auto) 41.8 % Lymph % (Auto) 44.2 % [place] % (Auto) 9.3 % Eos % (Auto) 3.6 % Baso % (Auto) 0.9 % Neut # (Auto) 1.85 (1.40-6.50) K/uL Lymph # (Auto) 1.96 (1.20-3.40) K/uL [place] # (Auto) 0.41 (0.11-0.59) K/uL Eos # (Auto) 0.16 (0.00-0.50) K/uL Baso # (Auto) 0.04 (0.00-0.20) K/uL Immature Gran # (Auto) 0.01 (0.01-0.20) K/uL PT 10.7 (9.0-12.0) Seconds INR 1.0 (0.9-1.1) APTT 27 (21-31) Seconds PTT Ratio 1.0 Sodium 141 (136-145) mmol/L Potassium 3.3 L (3.5-5.1) mmol/L Chloride 111 H (98-107) mmol/L Carbon Dioxide 20 L (21-32) mmol/L Anion Gap 10 (3-11) BUN 12 (6-23) mg/dl Creatinine 0.94 (0.6-1.2) mg/dl Est Cr Clr Drug Dosing 50.8 ml/min Est GFR ( Amer) 71.7 ml/min Est GFR (Non-Af Amer) 61.9 ml/min BUN/Creatinine Ratio 12.8 (10-20) Glucose 109 H (70-99(Fasting)) mg/dl Calcium 8.8 (8.6-10.3) mg/dl Magnesium 2.0 (1.7-2.4) mg/dl Total Bilirubin 0.4 (0.2-1.0) mg/dl AST 18 (13-39) U/L ALT 14 (7-52) U/L Alkaline Phosphatase 51 (34-104) U/L Troponin I High Sens 6.8 (0-14) pg/ml Total Protein 6.4 (6.0-8.3) gm/dl Albumin 4.2 (3.4-5.0) gm/dl Globulin 2.2 L (2.5-4.0) gm/dl Albumin/Globulin Ratio 1.9 (0.9-2) Lipase 37 (11-82) U/L Urine Color Yellow Urine Appearance Clear (Clear) Urine pH 5.0 (4.5-7.5) Ur Specific [place] 1.019 (1.000-1.030) Urine Protein Negative (Negative) Urine Glucose (UA) Negative (Negative) Urine Ketones Negative (Negative) Urine Blood Negative (Negative) Urine Nitrite Negative (Negative) Urine Bilirubin Negative (Negative) Urine Urobilinogen Negative (Negative) Ur Leukocyte Esterase Negative (Negative) Adenovirus (PCR) Not Detected (NotDetected) B. pertussis DNA (PCR) Not Detected (NotDetected) B.parapertussis DNA PCR Not Detected (NotDetected) C. pneumoniae DNA (PCR) Not Detected (NotDetected) Coronavirus OC43 (PCR) Not Detected (NotDetected) Coronavirus HKU1 (PCR) Not Detected (NotDetected) Coronavirus 229E (PCR) Not Detected (NotDetected) SARS-CoV-2 (PCR) Not Detected (NotDetected) Coronavirus NL63 (PCR) Not Detected (NotDetected) Human Metapneumovir PCR Not Detected (NotDetected) Influenza Type A (PCR) Not Detected (NotDetected) Influenza Type B (PCR) Not Detected (NotDetected) M. pneumoniae (PCR) Not Detected (NotDetected) Parainfluenza 1 (PCR) Not Detected (NotDetected) Parainfluenza 2 (PCR) Not Detected (NotDetected) Parainfluenza 3 (PCR) Not Detected (NotDetected) Parainfluenza 4 (PCR) Not Detected (NotDetected) RSV (PCR) Not Detected (NotDetected) Entero/Rhino (PCR) Not Detected (NotDetected) Imaging Data Attestation: I personally reviewed and interpreted this imaging study as follows: My Impression: Chest x-ray: No significant change from the chest x-ray November 2016. Radiologist's Impression: Head CT 11/24/23 20:33 Exam(s): CT HEAD Without Contrast EXAM: CT Head Without Intravenous Contrast CLINICAL HISTORY: Reason for exam: Neuro deficit, acute, stroke suspected. TECHNIQUE: Axial computed tomography images of the head/brain without intravenous contrast. CTDI is 37.78 mGy and DLP is 547.75 mGy-cm. Automated exposure control was utilized for the study. A dose lowering technique was utilized adhering to the principles of ALARA. COMPARISON: No relevant prior studies available. FINDINGS: No acute intracranial hemorrhage. No midline shift or mass effect. The territorial becker-white matter differentiation is maintained throughout. Age-related cerebral volume loss. Periventricular and subcortical white matter hypoattenuation, consistent with chronic microangiopathy. The visualized orbits appear grossly unremarkable. The calvarium is intact. The visualized paranasal sinuses and mastoid air cells are grossly clear. IMPRESSION: No acute intracranial hemorrhage, midline shift, or mass effect. Electronically signed by: Amish York MD 11/24/23 21:24 PM Abdomen/Pelvis CT 11/24/23 21:10 Exam(s): CT ABDOMEN + PELVIS With Contrast IV Amt: 90 ml opti 320 EXAM: CT Abdomen and Pelvis With Intravenous Contrast CLINICAL HISTORY: Reason for exam: nvd. TECHNIQUE: Axial computed tomography images of the abdomen and pelvis with intravenous contrast. CTDI is 11.54 mGy and DLP is 482.4 mGy-cm. Automated exposure control was utilized for the study. A dose lowering technique was utilized adhering to the principles of ALARA. CONTRAST: Patient received 90 ml opti 320 of IV contrast COMPARISON: No relevant prior studies available. FINDINGS: Lung bases: Unremarkable. No mass. No consolidation. ABDOMEN: Liver: Hepatic steatosis. Gallbladder and bile ducts: Unremarkable. No calcified stones. No ductal dilation. Normal gallbladder. Pancreas: Unremarkable. No mass. No ductal dilation. Spleen: Unremarkable. No splenomegaly. Adrenals: Unremarkable. No mass. Kidneys and ureters: RIGHT nephrectomy. Stomach and bowel: Moderate fecal retention, correlate for constipation. Diverticulosis, without acute diverticulitis. No small bowel obstruction. No free air. PELVIS: Appendix: No findings to suggest acute appendicitis. Bladder: Decompressed urinary bladder. Reproductive: Unremarkable as visualized. ABDOMEN and PELVIS: Intraperitoneal space: See above. Bones/joints: Degenerative changes of the spine. No acute fracture. No dislocation. Soft tissues: Unremarkable. Vasculature: Atherosclerotic changes of the aorta. No abdominal aortic aneurysm. Lymph nodes: Unremarkable. No enlarged lymph nodes. IMPRESSION: 1. RIGHT nephrectomy. 2. Moderate fecal retention, correlate for constipation. 3. Diverticulosis, without acute diverticulitis. No small bowel obstruction. No free air. Electronically signed by: Amish York MD 11/24/23 22:37 PM ECG Data Attestation: I personally reviewed and interpreted this ECG as follows: Rate (beats per minute): 78 Rhythm: + normal sinus ECG Intervals/blocks: + Normal PA and + Normal QT-c ECG ST segments: + Normal ST segments Additional Comments: QRS 60 MDM Narrative 2050: The patient was evaluated in room B10. A complete history and physical exam was performed Cardiac monitoring: An order was placed for continuous cardiac monitoring. The monitor shows a rate of 80 with sinus rhythm interpreted by me 0035: Vital signs stable. Labs within normal limits with exception of potassium 3.3. Imaging within normal limits. On reassessment the patient was alert and oriented x 3 no pain on palpation of the abdomen. Family reports they are comfortable taking the patient home as the patient was very confused prior to arrival in the emergency department slurring her words. Family states that the patient was at home and they are concerned she will not be safe at home will fall. Discussed these concerns with the [facility] hospitalist team Dr. Go who will evaluate the patient for admission. Impression & Plan Weakness, Acute hypokalemia, Nausea and vomiting Discharge Plan Visit Data Chief Complaint: Illness Stated Complaint: WEAKNESS, HEADACHE,STUTTERING SPEECH, CONFUSION, ED Provider: Rey Pierce Discharge Problem: Weakness, Acute hypokalemia, Nausea and vomiting Patient Disposition: Being Evaluated by Hospitalist Forms Stand Alone Forms: My [facility] Prescriptions Prescriptions: No Action bupropion HCl [Wellbutrin SR] 150 mg tablet sustained-release 12 hr 150 mg PO QAM ascorbic acid (vitamin C) 500 mg capsule 1,000 mg PO QAM dicyclomine 10 mg capsule 10 mg PO TID Qty: 270 5RF fluticasone propion-salmeterol [Advair Diskus] 100-50 mcg/dose blister with device 1 inh inhalation BID Qty: 60 2RF Hold Instructions: Symbicort Nurtec ODT 75 mg tablet,disintegrating See Rx Instructions .ROUTE .COMPLEX Qty: 8 5RF Dose Instruction: TAKE 1 TABLET BY MOUTH ONCE DAILY AT ONSET OF MIGRAINE HEADACHE. Rx Instructions: TAKE 1 TABLET BY MOUTH ONCE DAILY AT ONSET OF MIGRAINE HEADACHE. topiramate 100 mg tablet See Rx Instructions .ROUTE .COMPLEX Qty: 60 6RF Dose Instruction: TAKE 1 TABLET BY MOUTH TWICE A DAY Rx Instructions: TAKE 1 TABLET BY MOUTH TWICE A DAY metoclopramide HCl 5 mg tablet 5 mg PO BID Qty: 60 2RF omeprazole 20 mg capsule,delayed release(DR/EC) 20 mg PO QAM Qty: 90 2RF budesonide-formoterol [Symbicort] 80-4.5 mcg/actuation HFA aerosol inhaler 1 inh inhalation BID Qty: 15.29 2RF venlafaxine 37.5 mg capsule,extended release 24hr 37.5 mg PO QAM trazodone 100 mg tablet 200 mg PO HS zinc 50 mg tablet 50 mg PO QPM Botox 100 unit recon soln 0 unit intradermal Q3M Shingrix (PF) 50 mcg/0.5 mL suspension for reconstitution 0.5 ml IM .COMPLEX Qty: 1 1RF Rx Instructions: 0.5 mL IM Apply once and then again 2-6 months later; zolpidem 5 mg tablet 2.5 mg PO HS calcium carbonate 600 mg calcium (1,500 mg) tablet 600 mg PO QPM venlafaxine [Effexor XR] 150 mg capsule,extended release 24hr 150 mg PO QAM budesonide 32 mcg/actuation spray,non-aerosol 2 spray intranasal QAM Qty: 8.43 0RF Rx Instructions: administer into each nostril cyclobenzaprine 10 mg tablet 10 mg PO BID PRN (Reason: muscle spasm or tension) Qty: 60 5RF levothyroxine 75 mcg tablet 75 mcg PO DAILY Referrals Referrals: Raymond Vásquez DO [Primary Care Provider] - Discharge Problem: Nausea and vomiting Qualifiers: Vomiting type: unspecified Qualified Code(s): R11.2 - Nausea with vomiting, unspecified
[2023-11-25] MEDS ORDERED: POLYETHYLENE (MIRALAX) 17 GM PACK PO PRN (02:10)
[2023-11-25] MEDS ORDERED: bisacodyL 10 MG SUPP PR PRN (02:10)
[2023-11-25] MEDS ORDERED: ACETAMINOPHEN 325 MG TAB PO PRN (02:10)
[2023-11-25] MEDS: LACTATED RINGER'S 1,000 ML IV SCH (02:52)
[2023-11-25] MEDS: PROCHLORPERAZINE 5 MG in SYRINGE 4 ML IV PRN (02:53)
[2023-11-25 02:54] LABS: Thyroid Stimulating Hormone 1.366 uIu/ml (0.300-4.500)
[2023-11-25] MEDS: POTASSIUM CHLORIDE CRTAB 20 MEQ TABCR PO STA (03:16)
[2023-11-25] MEDS: LORazepam 0.5 MG in SYRINGE 0.25 ML IV STA (04:48)
[2023-11-25 05:18] LABS: Adenovirus F 40/41 PCR Not Detected (NotDetected); Astrovirus PCR Not Detected (NotDetected); Campylobacter PCR Not Detected (NotDetected); Cryptosporidium PCR Not Detected (NotDetected); Cyclospora cayetanensis PCR Not Detected (NotDetected); Entamoeba histolytica PCR Not Detected (NotDetected); Enteroaggregative E.coli(EAEC) Not Detected (NotDetected); Enteropathogenic E.coli (EPEC) Not Detected (NotDetected); Enterotoxigenic E.coli (ETEC) Not Detected (NotDetected); Giardia lamblia PCR Not Detected (NotDetected); Norovirus GI/GII PCR Not Detected (NotDetected); Plesiomonas shigelloides PCR Not Detected (NotDetected); Rotavirus A PCR Not Detected (NotDetected); Salmonella PCR Not Detected (NotDetected); Sapovirus PCR Not Detected (NotDetected); Shiga-like Toxin E.coli (STEC) Not Detected (NotDetected); Shigella/Enteroinvasive E.coli Not Detected (NotDetected); Vibrio cholerae PCR Not Detected (NotDetected); Vibrio species PCR Not Detected (NotDetected); Yersinia enterocolitica PCR Not Detected (NotDetected)
[2023-11-25] MEDS ORDERED: ALBUTEROL 0.5% NEB SOLN 2.5 MG/0.5 ML VIAL NEB PRN (05:19)
[2023-11-25] MEDS: LEVOTHYROXINE SODIUM 75 MCG TABLET PO SCH (05:22)
--- NOTE | 2023-11-25 07:00 | XRay Report ---
XR chest 1V not portable HISTORY: 68 years-old Female illness acute shortness of breath COMPARISON: 12/07/2016 TECHNIQUE: AP view the chest FINDINGS: Cardiomediastinal and hilar silhouettes are within normal limits. No pneumothorax, pleural effusion o r airspace consolidation. Mild lower thoracic levoscoliosis may be accentuated by positioning. Bones appear grossly intact. IMPRESSION: No acute process. ACT 112: Negative or not required by law. The above report was generated using voice recognition software. It may contain grammatical, syntax o r spelling errors. Electronically signed by: Iglesia Delcid M.D. 11/25/2023 6:59 AM
[2023-11-25] MEDS: METOCLOPRAMIDE HCL 5 MG TABLET PO SCH (08:33)
[2023-11-25] MEDS: buPROPion SR 150 MG TABCR PO SCH (08:34)
[2023-11-25] MEDS: VENLAFAXINE HCL XR 37.5 MG CAPXR PO SCH (08:34)
[2023-11-25] MEDS: DICYCLOMINE HCL 10 MG CAP PO SCH (08:34)
[2023-11-25] MEDS: FLUTICASONE/VILANTEROL 100/25MCG 14 PUFFS/INHALER INH SCH (08:34)
[2023-11-25] MEDS: TOPIRAMATE 100 MG TAB PO SCH (08:34)
[2023-11-25] MEDS: VENLAFAXINE HCL XR 150 MG CAPXR PO SCH (08:34)
[2023-11-25] MEDS ORDERED: METOCLOPRAMIDE HCL 10 MG TABLET PO ONE (12:57)
[2023-11-25] MEDS: CYCLOBENZAPRINE HCL 10 MG TAB PO PRN (13:58)
--- NOTE | 2023-11-25 17:56 | Hospitalist Progress Note ---
Date of Service November 25, 2023 Assessment & Plan (1) Nausea and vomiting: (2) Asthma: (3) Hypothyroidism: (4) Depression with anxiety: (5) Migraine: Plan: (1) Nausea and vomiting: Likely due to constipation vs. viral gastroenteritis or a combination of the two -Continue Compazine -Gentle IVF LR at 80mL/hr x 2L -Pepcid/Protonix -Mylanta -Likely to benefit from Miralax clean out when acute sx resolve -Continue home Reglan -Continue Bentyl -Zofran prn (2) Asthma: Chronic. No cough, SOB or wheeze -Continue Fluticasone/Vilanterol -Albuterol PRN (3) Hypothyroidism: Chronic. Stable -Continue Synthroid (4) Depression with anxiety: Chronic -Continue home medications - Venlafaxine 150mg + 37.5mg daily -Continue Trazodone (5) Migraine: -Continue Topamax 100mg po BID -Continue [facility] Admission and Anticipated Discharge Date Admission Date: November 25, 2023 Supervising Physician Co-Signing Physician Notes I personally examined the patient and verified all vera points of history and exam, discussed case, and agree with decision making with Dr Covarrubias Feeling better, but still fairly nauseated and has not really eaten. Vitals noted, in general she is awake and alert pleasant no distress. HEENT normocephalic atraumatic mucous membranes moist. Mild epigastric tenderness moderate left lower quadrant tenderness. No guarding rebound or rigidity. Abdominal pain, nausea/vomitingon review of CT scan, she is definitely carrying a fairly significant fecal loadI suspect her diarrhea is overflow. Her symptoms may be entirely due to constipation, although with her abrupt nausea and vomiting, she also easily could have a viral gastroenteritis superimposed. Otherwise supportive care. Discussed bowel regimenfor now we will utilize Mylanta at fairly significant dosing given that I will probably help with her nausea as well, and I doubt she would really be able to tolerate the fluid volume of MiraLAX or the gas/cramping of the lactulose right now until her nausea is better. Home once she is able to tolerate p.o. DVT proph - lovenox Subjective Pt evaluated at bedside, notes that vomiting didn't start until she presented to ED, has vomited 6-7 times since. Also having intermittent diarrhea, though notes that she routinely has diarrhea in the setting of IBS. Denies subjective fever/chills but notes sweats. Previous concern regarding confusion and slurred speech, patient notes feeling more lucid now. Review of Systems Review of Systems: as per HPI Physical Exam Physical Exam: General: Alert and oriented. No acute distress Cardiac: Regular rate and rhythm, no murmurs appreciated Respiratory: Lungs clear to auscultation bilaterally, No increased work of breathing Abdominal: Soft, mildly tender to palpation, non-distended. Bowel sounds present. Psych: AOx3, increased speech latency Results & Data Results & Data Vital Signs (Past 12 Hours) Vital Signs Temp Pulse Resp BP BP Pulse Ox O2 Del Method 11/25/23 15:19 36.4 C L 83 16 120/71 100 Room Air 11/25/23 07:20 36.9 C 93 H 16 119/74 96 Room Air Resident Activity Tracking Resident Involvement: Resident Care Provided Care Provided: Adult Hospital Medicine (1) Nausea and vomiting Vomiting type: unspecified Qualified Code(s): R11.2 - Nausea with vomiting, unspecified (2) Asthma Asthma complication type: uncomplicated Asthma persistence: intermittent Asthma severity: mild Qualified Code(s): J45.20 - Mild intermittent asthma, uncomplicated (3) Hypothyroidism Hypothyroidism type: acquired Qualified Code(s): E03.9 - Hypothyroidism, unspecified
[2023-11-25] MEDS: ALUMINUM/MAGNESIUM/SIMETH (MAALOX MAX) 30 ML UDC PO SCH ×2 (18:37→19:16)
--- NOTE | 2023-11-25 19:07 | Billing Data ---
Date of Service November 25, 2023 Coding Level of Care Code 46991 SUB INP/OBS CARE MIN
[2023-11-25] MEDS: ONDANSETRON INJ 2 MG/ML 2 ML VIAL IV PRN (19:17)
[2023-11-25] MEDS: PANTOprazole 40 MG in SYRINGE 0 ML IV SCH (19:20)
[2023-11-25] MEDS: traZODone HCL 100 MG TAB PO SCH (19:21)
[2023-11-25] MEDS: FAMOTIDINE 20 MG TAB PO SCH (20:47)
[2023-11-26 06:55] LABS: Hematocrit (blood only) 35.3 % (37.0-47.0); Hemoglobin 12.1 g/dl (12.0-16.0); Mean Corpuscular Hemoglobin 32.7 pg (25.0-34.0); Mean Corpuscular Hgb Conc 34.3 g/dL (32.0-36.0); Mean Corpuscular Volume 95.4 fL (80.0-100.0); Mean Platelet Volume 8.7 fL (9.4-12.4); Platelet Count 256 K/uL (130-400); RDW Coefficient of Variation 13.3 % (11.5-14.5); RDW Standard Deviation 47.2 fL (36.4-46.3); White Blood Count 7.36 K/ul (4.8-10.8)
--- NOTE | 2023-11-26 07:26 | Electrocardiogram Report ---
Test Reason : Blood Pressure : / mmHG Vent. Rate : 078 BPM Atrial Rate : 078 BPM P-R Int : 156 ms QRS Dur : 068 ms QT Int : 416 ms P-R-T Axes : 068 081 074 degrees QTc Int : 474 ms Poor data quality, interpretation may be adversely affected Normal sinus rhythm Nonspecific ST abnormality Abnormal ECG When compared with ECG of 08-DEC-2016 22:36, No significant change was found Confirmed by Pérez Cerrato ([id number]) on 11/26/2023 7:26:32 AM Referred By: REFERRED SELF Confirmed By:Pérez Cerrato
[2023-11-26 07:36] LABS: Albumin Level 4.1 gm/dl (3.4-5.0); BUN Creatinine Ratio 17.9 (10-20); Bilirubin Direct 0.1 mg/dl (0-0.2); Bilirubin,Total 0.3 mg/dl (0.2-1.0); Creatinine Clr Calc Pharmacy 61.3 ml/min; Est GFR (African American) 89.9 ml/min; Est GFR (Non-African American) 77.6 ml/min; Potassium 3.5 mmol/L (3.5-5.1); Total Protein 5.8 gm/dl (6.0-8.3)
--- NOTE | 2023-11-26 07:59 | Hospitalist Progress Note ---
Date of Service November 26, 2023 Assessment & Plan (1) Nausea and vomiting: (2) Asthma: (3) Hypothyroidism: (4) Depression with anxiety: (5) Migraine: Plan: (1) Nausea and vomiting: Likely due to constipation vs. viral gastroenteritis or a combination of the two -Continue Compazine -Gentle IVF LR at 80mL/hr x 2L -Pepcid/Protonix -Mylanta -Likely to benefit from Miralax clean out when acute sx resolve -Continue home Reglan -Continue Bentyl -Zofran prn (2) Asthma: Chronic. No cough, SOB or wheeze -Continue Fluticasone/Vilanterol -Albuterol PRN (3) Hypothyroidism: Chronic. Stable -Continue Synthroid (4) Depression with anxiety: Chronic -Continue home medications - Venlafaxine 150mg + 37.5mg daily -Continue Trazodone (5) Migraine: -Continue Topamax 100mg po BID -Continue [facility] Admission and Anticipated Discharge Date Admission Date: November 25, 2023 Subjective Pt is a [] yo [] with a past medical history of [] who presents to the hospital on [] for []. Review of Systems Review of Systems: Constitutional: denies fever, chills, [] HEENT: denies congestion, sore throat Cardio: denies chest pain, palpitations Resp: denies shortness of breath, cough GI: denies abdominal pain, nausea, vomiting, constipation, diarrhea : denies pain with urination, change in urinary frequency Neuro: denies new numbness, tingling, weakness Physical Exam Physical Exam: General:Alert and oriented, no acute distress, [] HEENT: Normocephalic, moist oral mucosa, Cardio: Regular rate and rhythm, no murmur, Resp:Lungs clear to auscultation b/l, no wheezes or rhonchi, GI: Soft and nontender, nondistended, bowel sounds active Skin: Warm, pink, dry, Psych: Mood-affect congruence. Results & Data Results & Data Vital Signs (Past 12 Hours) Vital Signs Temp Pulse Resp BP Pulse Ox O2 Del Method 11/26/23 06:57 36.5 C 80 16 116/68 98 Room Air (1) Nausea and vomiting Vomiting type: unspecified Qualified Code(s): R11.2 - Nausea with vomiting, unspecified (2) Asthma Asthma severity: mild Asthma persistence: intermittent Asthma complication type: uncomplicated Qualified Code(s): J45.20 - Mild intermittent asthma, uncomplicated (3) Hypothyroidism Hypothyroidism type: acquired Qualified Code(s): E03.9 - Hypothyroidism, unspecified
[2023-11-26] MEDS: ENOXAPARIN INJ 40 MG/0.4 ML SYR SQ SCH (08:38)
[2023-11-26] MEDS: DOCUSATE SODIUM/SENNA 50/8.6MG TAB PO SCH (08:46)
[2023-11-26] MEDS: METOCLOPRAMIDE HCL 5 MG TABLET PO SCH (08:46)
--- NOTE | 2023-11-26 14:24 | Discharge Summary ---
Date of Service November 26, 2023 Admission HPI Per Admitting Provider Hugh Eric is a 68yo female presenting with dizziness, imbalance, nausea and headache. She reports not feeling well for several days - watery diarrhea, poor appetite and decreased oral intake. She reports abrupt onset of generalized weakness as well as confusion this afternoon. She had nausea with multiple episodes of non-bloody/non-bilious vomiting in the ER. No sick contacts, recent travel or medication changes. Family was initially at bedside (unfortunately they left prior to my arrival) - voiced concern that the patient is confused as well. Admission Exam Per Admitting Provider General: patient resting comfortably, NAD, non-toxic in appearance, AA&O x 4 Skin: warm, dry, intact, no rashes or lesions HEENT: NC/AT, PERRL, EOMI, anicteric sclera, conjunctiva without injection, external ear normal to inspection and nontender, nares patent, moist mucus membranes, dentition intact, no oropharyngeal lesions, neck supple, trachea midline, no LAD, no thyromegaly, no JVD Heart: +S1/S2, regular, no m/r/g Lungs: equal air entry bilaterally, no rales/rhonchi/wheezes Abd: +BS, soft, NT/ND, no masses/organomegaly/ascites Ext: warm, 2+ pulses in UE/LE bilaterally, no clubbing/cyanosis or edema Neuro: nonfocal, patient AA&O x 4, speech intact, no facial droop, moving all extremities on command with equal strength 5/5 Principal Diagnosis Dehydration, nausea/vomiting, constipation Discharge Exam General:Alert and oriented, no acute distress, HEENT: Normocephalic, moist oral mucosa, Cardio: Regular rate and rhythm, no murmur, Resp:Lungs clear to auscultation b/l, no wheezes or rhonchi, GI: Soft and nontender, nondistended, bowel sounds active Skin: Warm, pink, dry, Psych: Mood-affect congruence. Discharge Data Allergies Allergy/AdvReac Type Severity Reaction Status Date / Time tree and shrub pollen Allergy Verified 09/07/23 14:26 morphine AdvReac Intermediate Vomiting Verified 09/07/23 14:26 Consultations 11/24/23 23:32 ED Decision to Admit Stat Ordered Studies 11/24/23 20:33 CT head/brain wo con Stat 11/24/23 21:10 CT abd pelvis IV con only Stat Hospital Course (1) Nausea and vomiting: (2) Asthma: (3) Hypothyroidism: (4) Depression with anxiety: (5) Migraine: Pt is a 68 yo female with a past med hx of migraines, s/p nephrectomy, asthma, GERD, gastroparesis, hypothyroidism, IBS, and esophageal dysphagia who presents to the hospital on 11/24 for nausea/vomiting/diarrhea and dehydration. Nausea an vomiting have improved. She is tolerating intake and last BM last night was formed. Stable for discharge home. Symptoms may have been due to gastroenteritis vs constipation vs a mixture of both.Advised she take miralax daily upon discharge for large stool burden. #Nausea and vomiting, resolved - Likely due to constipation vs. viral gastroenteritis or a combination of the two - Continue Compazine, home reglan, home bentyl - IVF LR at 80mL/hr x 2L given on admission but now tolerating po so no more IVF needed -Pepcid/Protonix -Mylanta -Zofran prn #Asthma Chronic. No cough, SOB or wheeze -Continue Fluticasone/Vilanterol -Albuterol PRN #Hypothyroidism Chronic. Stable - TSH on admission 1.36 (11/23) - Continued home Synthroid #Depression with anxiety Chronic -Continued home medications - Venlafaxine 150mg + 37.5mg daily -Continued home Trazodone #Migraine -Continued home Topamax 100mg po BID -Continued home Nurtec Total Time Total Time Spent Total Time Spent (In Minutes): <30 Discharge Plan Discharge Items Patient Disposition: Home - Self-Care Reason For Visit: CONFUSION Discharge Diagnosis: Dehydration, constipation Activity: Resume your previous activity Non-emergency contact: Primary Care Provider Call non-emergency contact if: you have any medication questions and your symptoms worsen Follow-up/Referrals: Raymond Vásquez DO [Primary Care Provider] - Diet: Regular Addtl Attending Provider Instructions: You were admitted for nausea, vomiting and dehydration. You were treated with some IV fluids and as your symptoms have improved and you are now tolerating eating and drinking without vomiting, we feel it is safe for you to return home. Your diarrhea, nausea, and vomiting may have been due to an acute gastroenteritis (also known as having a "stomach bug"), but these symptoms can also be due to constipation. Although constipation and diarrhea seem to be completely separate states of the bowel, those with constipation, especially chronic constipation, can get what we call "overflow diarrhea." Overflow diarrhea is when there is significant constipation where the only stool that goes past the points of constipation are the stools that are more liquid or watery, similar to a pipe that trickles some water when there is a significant blockage preventing normal flow. The CT scan of your abdomen showed a large amount of stool in the intestines, suggesting constipation is likely largely or partially to blame for the symptoms that brought you in. Please see the medication section for our recommendations on treating and preventing constipation. You may have also had a stomach bug at the same time contributing to your symptoms, so the entirety of your symptoms may be due to both a stomach bug and constipation, or may be entirely explained by significant constipation. Medications: Your medication list has been reviewed and reconciled upon discharge to ensure accuracy and continuity of care. An updated list of all your medications is included with your hospital discharge paperwork. Please review this list c losely, and make note of any changes. We suggestion you case picker a new medication called Miralax from any pharmacy on your way home today. Take Miralax daily starting as 5 caps (17 g x5) daily for 3 days to clear the constipation. Then, you should then increase or decrease the dose daily depending on the bowel movements from the previous day with a goal of 1-2 soft bowel movements daily that are easy to pass but still have some form. On day 4 of leaving the hospital after the 3 day clean out of 5 caps of miralax daily, start with 2-3 caps of miralax daily and dose on the previous day's bowel movements. If you have 2 caps of miralax daily and the previous day you had 3-4 more watery bowel movements, decrease the dose by 1 cap a day (such as to 1 cap a day from 2 caps daily) until you reach a goal of 1-2 soft bowel movements daily. If you take 2 caps of miralax and fail to have a bowel movement while on 2 caps a day, you should increase to 3-4 caps of miralax and increase by 1-2 caps daily until 1-2 soft bowel movements a day is achieved. Take your medications as instructed; do not skip a dose of your medicines. Make sure all of your doctors know every medicine you are taking (including jqjy-gnf-rzgvojx medicines, vitamins, and supplements). Call your primary care provider before taking any new medicines (including over- the-counter medicines, vitamins, and supplements), because some of these may interact with your current medications, or may make your symptoms worse. Tell your primary care provider if you cannot afford your medications. Activity: You can do normal everyday activities as your body allows. Take rest breaks if you feel tired. Do not overexert. Stop activity if you have pain, shortness of breath or feel dizzy. Follow-up appointments: Make an appointment with your primary care physician within one week of discharge. A copy of this summary will be sent to them. Every time you see your primary care physician, or any other doctor, bring your medication list, and a list of questions. CONTACT YOUR PRIMARY CARE PROVIDER if you experience any of the following: Shortness of breath or difficulty breathing Swelling of your feet, ankles, hands or abdomen Feeling tired with normal activity or experiencing dizziness or fainting Difficulty following your treatment plan, or difficulty taking medications CALL 911 OR GO TO THE EMERGENCY DEPARTMENT if you experience any of the following: Severe abdominal pain or nausea/vomiting Severe chest pain, or chest pain that radiates (moves) to your jaw or arm Sudden, severe shortness of breath or difficulty breathing Thank you for allowing us to participate in your care. Pending Studies at Discharge: No Stand-Alone Forms: My [facility] Medications and DC Order Prescriptions: Continued bupropion HCl [Wellbutrin SR] 150 mg tablet sustained-release 12 hr 150 mg PO QAM ascorbic acid (vitamin C) 500 mg capsule 1,000 mg PO QAM dicyclomine 10 mg capsule 10 mg PO TID Qty: 270 5RF fluticasone propion-salmeterol [Advair Diskus] 100-50 mcg/dose blister with device 1 inh inhalation BID Qty: 60 2RF Hold Instructions: Symbicort Nurtec ODT 75 mg tablet,disintegrating See Rx Instructions .ROUTE .COMPLEX Qty: 8 5RF Dose Instruction: TAKE 1 TABLET BY MOUTH ONCE DAILY AT ONSET OF MIGRAINE HEADACHE. Rx Instructions: TAKE 1 TABLET BY MOUTH ONCE DAILY AT ONSET OF MIGRAINE HEADACHE. metoclopramide HCl 5 mg tablet 5 mg PO BID Qty: 60 2RF omeprazole 20 mg capsule,delayed release(DR/EC) 20 mg PO QAM Qty: 90 2RF venlafaxine 37.5 mg capsule,extended release 24hr 37.5 mg PO QAM trazodone 100 mg tablet 200 mg PO HS zinc 50 mg tablet 50 mg PO QPM Botox 100 unit recon soln 0 unit intradermal Q3M calcium carbonate 600 mg calcium (1,500 mg) tablet 600 mg PO QPM venlafaxine [Effexor XR] 150 mg capsule,extended release 24hr 150 mg PO QAM budesonide 32 mcg/actuation spray,non-aerosol 2 spray intranasal QAM Qty: 8.43 0RF Rx Instructions: administer into each nostril cyclobenzaprine 10 mg tablet 10 mg PO BID PRN (Reason: muscle spasm or tension) Qty: 60 5RF levothyroxine 75 mcg tablet 75 mcg PO DAILY budesonide-formoterol 80-4.5 mcg/actuation HFA aerosol inhaler 1 puff INHALATION BID topiramate 100 mg tablet 100 mg PO BID Rx Instructions: TAKE 1 TABLET BY MOUTH TWICE A DAY Discharge Orders: Discharge Order (Routine); Ordered 11/26/23 Ordered By: Yoselyn Sparks/Other Patient Handouts: ED Vomiting (Adult) Admission Data Admit Date/Time: 11/25/23 00:18 Attending Provider: Franco Shaw Admit Provider: Kellen Go Primary Care Provider: Raymond Vásquez Other Providers: Kellen Go Other Interventions: Discharge Summary Assessment (RN) Last Done: 11/26/23 14:48 Supervising Physician Co-Signing Physician Notes I personally examined the patient and verified all vera points of history and exam, discussed case, and agree with decision making with Dr Hunt feeling better. Was able to eat. Feels like she would do okay at home. Is starting to have bowel movements. Vitals noted, in general she is awake and alert pleasant no distress. HEENT normocephalic atraumatic mucous membranes moist. Breathing unlabored no accessory muscle use good effort. Skin shows no rashes no pallor or icterus. Neuro without focal deficits. Abdominal pain, nausea/vomitingon review of CT scan, she is definitely carrying a fairly significant fecal loadI suspect her diarrhea is overflow. Her symptoms may be entirely due to constipation, although with her abrupt nausea and vomiting, she also easily could have a viral gastroenteritis superimposed. Improving and safe for home. Zofran as needed nausea, MiraLAX to clear constipation. Otherwise as above DVT proph - lovenox Resident Activity Tracking Resident Involvement: Resident Care Provided Care Provided: Adult Hospital Medicine
--- NOTE | 2023-11-26 15:26 | Billing Data ---
Date of Service November 26, 2023 Coding Level of Care Code 60488 IN/OBS DISCH 30 MIN/LESS
--- NOTE | 2023-11-26 15:29 | Billing Data ---
Date of Service November 26, 2023 Coding Level of Care Code 50894 IN/OBS DISCH 30 MIN/LESS
[2023-11-28 00:57] LABS: Babesia microti DNA Not Detected (Not Detected)
== END 2023-11-26 16:18 | disposition home or self-care (01) ==
LOC: ED 20:15 → 3W 20:15 → SUATTDRO 11-25 00:18 → 3W 11-25 01:58

== ENCOUNTER 2025-04-08 11:49 | Observation (INO) ==
[2025-04-08] MEDS: ONDANSETRON INJ 2 MG/ML 2 ML VIAL ONE (12:39)
[2025-04-08] MEDS: ONDANSETRON INJ 2 MG/ML 2 ML VIAL IV STA ×3 (12:39→20:20)
[2025-04-08 12:41] LABS: Hematocrit (blood only) 46.9 % (37.0-47.0); Hemoglobin 15.9 g/dl (12.0-16.0); Immature Granulocytes # (auto) 0.01 K/uL (0.01-0.20); Immature Granulocytes % (auto) 0.2 %; Mean Corpuscular Hemoglobin 33.5 pg (25.0-34.0); Mean Corpuscular Volume 98.7 fL (80.0-100.0); Platelet Count 371 K/uL (130-400); RDW Standard Deviation 50.9 fL (36.4-46.3); Red Blood Count 4.75 M/uL (4.20-5.40); White Blood Count 5.57 K/ul (4.8-10.8)
--- NOTE | 2025-04-08 12:41 | XRay Report ---
SINGLE VIEW CHEST CLINICAL HISTORY: Weakness. FINDINGS: An AP, portable, upright chest radiograph is compared to study dated 11/24/2023. The cardiom ediastinal silhouette is unremarkable. The lungs and pleural spaces are clear. No pneumothorax is see n. The skeletal structures are osteopenic. The bony thorax is grossly intact. Mild degenerative khan e and scoliosis is seen in the spine. IMPRESSION: No active disease in the chest. ACT 112: Negative or not required by law. Electronically signed by: Tahir Andrade M.D. 04/08/2025 12:39 PM
[2025-04-08] MEDS: OPTIRAY 320 100ml IV ONE (12:51)
[2025-04-08 12:59] LABS: Alanine Aminotransferase 30.0 U/L (7-52); Albumin Globulin Ratio 2.2 (0.9-2); Alkaline Phosphatase 57.0 U/L (34-104); Anion Gap 15.0 (3-11); Bilirubin,Total 0.5 mg/dl (0.2-1.0); Blood Urea Nitrogen 13.0 mg/dl (6-23); Calcium 10.3 mg/dl (8.6-10.3); Carbon Dioxide 20.0 mmol/L (21-32); Chloride 105.0 mmol/L (98-107); Creatinine Clr Calc Pharmacy 40.3 ml/min; Globulin 2.2 gm/dl (2.5-4.0); Glucose 170.0 mg/dl (70-99(Fasting)); Potassium 4.0 mmol/L (3.5-5.1); Sodium 140.0 mmol/L (136-145); Total Protein 7.1 gm/dl (6.0-8.3)
--- NOTE | 2025-04-08 13:08 | CT Scan Report ---
CT SCAN OF THE BRAIN WITHOUT IV CONTRAST CLINICAL HISTORY: Change in mental status. Head injury. COMPARISON STUDY: CT of the brain dated 11/24/2023 TECHNIQUE: Unenhanced axial CT scan of the brain is performed from the vertex to the skull base. Imag es are reviewed in the axial, sagittal, coronal planes. A dose lowering technique was utilized adheri ng to the principles of ALARA. FINDINGS: Brain parenchyma: There is age-related involutional change noting mild subcortical and periventricula r microangiopathic disease. There is no hemorrhage, mass effect, or evidence of acute territorial isc hemia by CT criteria. Harrison-white matter differentiation is preserved. No extra-axial fluid collection is seen. Ventricles, sulci, cisterns: Prominent secondary to involutional change. Intracranial vasculature: There is mild atherosclerotic calcification of the cavernous carotid arteri es. Calvarium: Unremarkable. Sinuses and mastoids: The visualized paranasal sinuses are clear. The mastoid air cells are well pneu matized. Orbits: The bony orbits are grossly intact. There are bilateral ocular lens implants. IMPRESSION: There is no hemorrhage, mass effect, or evidence of acute territorial ischemia by CT nicolasa bell. ACT 112: Negative or not required by law. Electronically signed by: Tahir Andrade M.D. 04/08/2025 1:07 PM
--- NOTE | 2025-04-08 13:17 | CT Scan Report ---
CT SCAN OF THE ABDOMEN AND PELVIS WITH IV CONTRAST CLINICAL HISTORY: Generalized abdominal pain. Nausea and vomiting. Cystitis. COMPARISON STUDY: Abdominal CT dated 11/24/2023 TECHNIQUE: Following the IV administration of 94 cc of Optiray 320, CT scan of the abdomen and pelvi s is performed from the lung bases to the proximal femora. Images are reviewed in the axial, sagittal , and coronal planes. IV contrast was administered without complication. A dose lowering technique wa s utilized adhering to the principles of ALARA. CT DOSE: 1012.89 mGy.cm FINDINGS: Lung bases: The heart is normal in size noting a small pericardial effusion. The lung bases are clear noting dependent atelectasis. There are bilateral fat-containing Bochdalek hernias. There is a small hiatal hernia. Liver: The contrast-enhanced liver is normal in size, contour, and attenuation. There is no intrahepa tic biliary ductal dilatation. The hepatic veins and portal veins are patent. Gallbladder: Unremarkable. Spleen: Normal in size and attenuation. Pancreas: Unremarkable. Adrenal glands: A 1.6 cm left adrenal nodule is unchanged and likely represent an adenoma. The right adrenal gland is normal as imaged. Kidneys: The right kidney is surgically absent. The contrast-enhanced left kidney is normal in size a nd without hydronephrosis. The left kidney enhances normally. Abdominal vasculature: The abdominal aorta is normal in course and caliber. Bowel: There is moderate sigmoid diverticulosis without CT evidence of acute diverticulitis. The colo n is largely decompressed and appears diffusely thick walled with mild surrounding infiltration. The appearance suggests a nonspecific colitis. Hyperdense material in the right colon likely represents r esidual enteric contrast. There is no bowel obstruction. The appendix is well-visualized and normal. Peritoneum: There is no intraperitoneal free air or abdominal ascites. Lymphadenopathy: None. Pelvic viscera: The bladder is normal as visualized. The uterus is surgically absent. No adnexal lesi on is seen. Skeletal structures: The skeletal structures are osteopenic. There is moderate lumbosacral spondylosi s as well as scoliosis. No lytic or blastic lesions are seen. IMPRESSION: 1. Findings suggest a nonspecific colitis. Correlate clinically. 2. Diverticulosis of the colon without CT evidence of acute diverticulitis. 3. Status post right nephrectomy. 4. Additional findings as above. ACT 112: Negative or not required by law. Electronically signed by: Tahir Andrade M.D. 04/08/2025 1:16 PM
[2025-04-08] MEDS: SODIUM CHLORIDE 0.9% 1,000 ML IV ONE (14:33)
[2025-04-08 14:38] LABS: Appearance Urine Clear (Clear); Bacteria Urine Automated None Seen (None Seen); Cast Urine Automated 0-2 /lpf (0-2); Epithelial Cell Urine Auto 0-2 /hpf (0-2); Glucose Urine UA Negative (Negative); RBC Urine Automated 0-2 /hpf (0-2); WBC Urine Automated 0-5 /hpf (0-5)
--- NOTE | 2025-04-08 15:00 | Emergency Department Note ---
Impression & Plan Acute confusion, Delirium ED Provider Note NAME: JENNIFER MENENDEZ AGE: 69 SEX: F : 1955 ARRIVES VIA: Walk-In INFORMANT: Patient, ED PROVIDER(S): Leann Mayen MD CHIEF COMPLAINT: Confusion, fall HPI: This is a 69-year-old female presenting for confusion/fall. Patient has had some increasing episodes of confusion over the past 2 to 3 weeks. Patient had a fall on Tuesday, 3 days ago. She began having confusion that was worse, as well as vomiting profusely. Patient has had difficulty eating due to the nausea and vomiting. Her daughter and fianc tell most of the history. They have noticed a decline in her mental status. More confusion overall which is her biggest concern. No headache currently. ROS: See above HPI for pertinent positives & negatives. A total of 10 systems reviewed and were otherwise negative. PAST MEDICAL HISTORY: See Below PAST SURGICAL HISTORY: See Below FAMILY HISTORY: See Below SOCIAL HISTORY: See Below HOME MEDICATIONS: See Below ALLERGIES: See Below VITALS: See Below PHYSICAL EXAMINATION: General: Eyes closed, actively retching Head: Normocephalic and atraumatic Eyes: Normal inspection, extraocular muscles intact Ear, nose, throat: Normal external exam Neck: Normal range of motion Respiratory: lungs clear to auscultation bilaterally Cardiovascular: Regular rate/rhythm, no murmur GI: soft, nontender, no guarding or rebound Extremities: nontender, moves all extremities Neuro: The patient awake and alert, appropriately conversive, no focal deficits, symmetric faces Skin: Warm, dry, and intact MEDICAL DECISION MAKING: This is a 69-year-old female send for confusion and fall. Patient had injury about [address] of the head to help rule out traumatic injury. Daughter also is concerned about urinary frequency/urgency. Will CT abdomen/pelvis due to persistent nausea, vomiting and urinary symptoms. Will get urinalysis. - Bloodwork is reviewed showing no significant leukocytosis, anemia, electrolyte or creatinine abnormality. Slight anion gap is noted at 15, likely dehydration. - CT of the head and abdomen/pelvis is reassuring, showing only colitis, nonspecific. - Urinalysis currently negative - Discussed with daughter who is concerned with patient's mental state at this time. She is concern about polypharmacy as she has had multiple medications taken overnight. Will admit the patient due to acute with mental status. Differential diagnosis: Confusion, dementia, lethargy, polypharmacy Independent History obtained from: Daughter, rocio Diagnostics interpreted by me: ECG: ECG independently interpreted by me with normal sinus rhythm, rate of 76, normal WI, normal QRS, prolonged QT,, no ST segment elevations consistent with STEMI criteria Cardiac Monitoring: An order was placed for continuous cardiac monitoring. The monitor shows a rate of 61 with sinus rhythm. Past Med/Surg History Problem List (Updated 04/09/25 @ 15:28 by Leann Mayen MD) Delirium (Acute) Acute confusion (Acute) Head trauma (Acute) KRISTAN (generalized anxiety disorder) MDD (major depressive disorder) Hyperlipidemia Cervicogenic headache Headache Tension headache Chronic diarrhea Vitamin D imbalance (Chronic) Postmenopausal osteoporosis (Chronic) Low back pain (Chronic) Gastroparesis (Chronic) GERD without esophagitis (Chronic) Asthma (Chronic) S/p nephrectomy (Chronic) Right donor nephrectomy 2002. Periorificial dermatitis Managed by Dermatology - N prn. Hormone replacement therapy (HRT) (Acute) Adenomatous polyp of colon Sacroiliac dysfunction Thoracic back pain Dense breast Migraine Chronic daily headache Esophageal dysphagia Positive CORI (antinuclear antibody) Positive sm/H[facility]ITAL[facility] HOST antibody Renal insufficiency Change in bowel habits Prolonged QT interval (Acute) QTc 446 on EKG 06/12/2014 Hypothyroidism (Chronic) Depression with anxiety (Chronic) Chronic migraine without aura (Chronic) Manages with Botox injections q90d with [facility] pain management. Dysphagia s/p EGD with dilation 05/25/2019, 06/17/22 Irritable bowel syndrome Adverse reaction to anesthetic agent Extreme nausea Allergic rhinitis Adopted Lumbar facet joint syndrome Leukopenia (Chronic) hx Medical History Basal cell carcinoma of head Nausea and vomiting Acute hypokalemia Weakness GERD (gastroesophageal reflux disease) Asthma History of blood clotting disorder Basal cell carcinoma (BCC) Surgical History History of hernia repair History of kidney donation History of esophagogastroduodenoscopy (EGD) History of nephrectomy History of breast surgery History of hysterectomy History of colonoscopy History of bladder surgery History of back surgery Family History Other Adopted Social History Smoking Status: Never smoker Second Hand Exposure: No; Do You Dip or Chew Tobacco: No; Hx Alcohol Use: Yes Hx Substance Use: No Preferred Language: Guinean Communication Ability: Effective Visual Impairment: No Limitations Hearing Ability: Normal Package Checker Required: No Beliefs That Will Affect Care: None marital status: Current Living Situation: Spouse current occupational status: employed current occupation: Private Care How many Children do You have: 3 Feels Safe at Home: Yes Childhood Exposure to Second-Hand Smoke: No Diet: regular caffeine: No during the past year weight has: decreased > 10 lbs Dental Care, Regularly: Yes Physical Activity Frequency: Daily Seatbelt Use: always Sunscreen Use: Yes Assistive Devices: None Allergies Allergies Allergy/AdvReac Type Severity Reaction Status Date / Time tree and shrub pollen Allergy Verified 03/29/25 15:12 morphine AdvReac Intermediate Vomiting Verified 03/29/25 15:12 Home Meds Home Medications Medication Instructions Recorded Confirmed ascorbic acid (vitamin C) 500 mg 1,000 mg PO QAM 05/23/18 04/08/25 capsule calcium carbonate 600 mg PO QPM 07/11/20 04/08/25 venlafaxine 150 mg 150 mg PO QAM 03/16/21 04/08/25 capsule,extended release 24 hr (Effexor XR) trazodone 100 mg tablet 200 mg PO HS 01/06/22 04/08/25 cetirizine 10 mg tablet (Zyrtec) 10 mg PO DAILY PRN Allergy Symptoms 01/04/25 04/08/25 topiramate 100 mg tablet 100 mg PO BID 04/08/25 04/08/25 zinc gluconate 30 mg tablet 30 mg PO QPM 04/08/25 04/08/25 Previous Rx's Medication Instructions Recorded cyclobenzaprine 10 mg tablet 10 mg PO BID PRN muscle spasm or 06/18/24 tension #60 tabs levothyroxine 75 mcg tablet 75 mcg PO DAILY #90 tabs 07/11/24 metoclopramide HCl 5 mg tablet 5 mg PO BID #60 tabs 11/02/24 budesonide-formoterol HFA 80 1 puff inhalation BID #30.6 grams 11/20/24 mcg-4.5 mcg/actuation aerosol inhaler bupropion HCl 150 mg tablet,12 hr 150 mg PO QAM #90 ea 11/20/24 sustained-release (Wellbutrin SR) scopolamine base 1 mg over 3 days 1 patch transdermal Q3D PRN motion 12/19/24 transdermal patch sickness #4 ea azelastine 137 mcg (0.1 %) nasal See Rx Instructions .Route 12/27/24 spray .COMPLEX #30 mL atogepant 60 mg tablet (Qulipta) 60 mg PO DAILY #30 tabs 01/04/25 dicyclomine 10 mg capsule 10 mg PO TID #270 caps 03/06/25 rizatriptan 10 mg disintegrating 10 mg PO Q2H PRN migraine headache 03/25/25 tablet #12 tabs famotidine 40 mg tablet 40 mg PO DAILY #90 tabs 03/27/25 ondansetron 4 mg disintegrating 4 mg PO Q6H PRN nausea and 04/09/25 tablet vomiting #30 tabs Results & Data (ED) Vital Signs Vital Signs - 24 hr 04/08/25 11:50 04/08/25 11:50 04/08/25 12:29 Temperature 36.6 C Temperature Source Temporal Artery Scan Pulse Rate 92 H 74 Pulse Rate [Apical] Pulse Rhythm [Apical] Pulse Strength [Apical] Respiratory Rate 16 16 Respiratory Effort / Characteristics Respiratory Depth Respiratory Pattern Blood Pressure 132/78 Blood Pressure [Right Arm] Blood Pressure Mean 96 Blood Pressure Mean [Right Arm] Blood Pressure Position [Right Arm] Pulse Oximetry 99 Oxygen Delivery Method Sepsis Recent Fever Within 48 Hours No Sepsis New/Unexplained Change in Mental Status N/A Sepsis Action Taken by Nursing No Action Required 04/08/25 13:50 Temperature Temperature Source Pulse Rate Pulse Rate [Apical] 70 Pulse Rhythm [Apical] Regular Pulse Strength [Apical] Normal Respiratory Rate 18 Respiratory Effort / Characteristics Non-Labored Spontaneous Respiratory Depth Normal Respiratory Pattern Regular Blood Pressure Blood Pressure [Right Arm] 135/73 Blood Pressure Mean Blood Pressure Mean [Right Arm] 93 Blood Pressure Position [Right Arm] Semi-fowlers Pulse Oximetry 100 Oxygen Delivery Method Room Air Sepsis Recent Fever Within 48 Hours Sepsis New/Unexplained Change in Mental Status Sepsis Action Taken by Nursing Laboratory Data 04/08/25 12:20 04/08/25 12:20 Lab Results 04/08/25 04/08/25 04/08/25 Range/Units 12:20 12:30 14:15 WBC 5.57 (4.8-10.8) K/ul RBC 4.75 (4.20-5.40) M/uL Hgb 15.9 (12.0-16.0) g/dl POC Hgb 16.0 (12.0-16.0) g/dl Hct 46.9 (37.0-47.0) % POC Hct 47 (37-47) % MCV 98.7 (80.0-100.0) fL MCH 33.5 (25.0-34.0) pg MCHC 33.9 (32.0-36.0) g/dL RDW Std Deviation 50.9 H (36.4-46.3) fL RDW Coeff of Henny 13.8 (11.5-14.5) % Plt Count 371 (130-400) K/uL MPV 8.5 L (9.4-12.4) fL Immature Gran % (Auto) 0.2 % Neut % (Auto) 65.7 % Lymph % (Auto) 26.9 % Dodge % (Auto) 5.7 % Eos % (Auto) 0.4 % Baso % (Auto) 1.1 % Neut # (Auto) 3.66 (1.40-6.50) K/uL Lymph # (Auto) 1.50 (1.20-3.40) K/uL Dodge # (Auto) 0.32 (0.11-0.59) K/uL Eos # (Auto) 0.02 (0.00-0.50) K/uL Baso # (Auto) 0.06 (0.00-0.20) K/uL Immature Gran # (Auto) 0.01 (0.01-0.20) K/uL POC Sodium 140 (135-144) mmol/L Sodium 140 (136-145) mmol/L POC Potassium 4.0 (3.3-5.0) mmol/L Potassium 4.0 (3.5-5.1) mmol/L POC Chloride 108 (101-112) mmol/L Chloride 105 (98-107) mmol/L Carbon Dioxide 20 L (21-32) mmol/L POC Total CO2 18 L (24-31) mmol/L Anion Gap 15 H (3-11) POC Anion Gap 18.0 (16-25) mmol/L POC BUN 13 (7-18) mg/dl BUN 13 (6-23) mg/dl Creatinine 1.04 (0.6-1.2) mg/dl POC Creatinine 1.0 (0.6-1.3) mg/dl Est Cr Clr Drug Dosing 40.3 ml/min eGFR 57.82 BUN/Creatinine Ratio 12.5 (10-20) Glucose 170 H (70-99(Fasting)) mg/dl POC Glucose (other) 166 H (70-99) mg/dl Calcium 10.3 (8.6-10.3) mg/dl POC Ioniz Calcium Yaneth 1.22 (1.12-1.32) mmol/l Total Bilirubin 0.5 (0.2-1.0) mg/dl AST 32 (13-39) U/L ALT 30 (7-52) U/L Alkaline Phosphatase 57 (34-104) U/L Total Protein 7.1 (6.0-8.3) gm/dl Albumin 4.9 (3.4-5.0) gm/dl Globulin 2.2 L (2.5-4.0) gm/dl Albumin/Globulin Ratio 2.2 H (0.9-2) Urine Color Yellow Urine Appearance Clear (Clear) Urine pH 6.5 (4.5-7.5) Ur Specific [place] 1.042 H (1.000-1.030) Urine Protein 1+ H (Negative) Urine Glucose (UA) Negative (Negative) Urine Ketones 2+ H (Negative) Urine Blood Negative (Negative) Urine Nitrite Negative (Negative) Urine Bilirubin Negative (Negative) Urine Urobilinogen Negative (Negative) Ur Leukocyte Esterase Negative (Negative) Urine WBC (Auto) 0-5 (0-5) /hpf Urine RBC (Auto) 0-2 (0-2) /hpf U Hyaline Cast (Auto) 0-2 (0-2) /lpf U Epithel Cells (Auto) 0-2 (0-2) /hpf Urine Bacteria (Auto) None Seen (None Seen) Urine Comment Administered Medications Discontinued Medications Acetaminophen (Acetaminophen 325 Mg Tab) 650 mg PO Q4H PRN PRN Reason: pain/fever Stop: 05/08/25 19:30 Last Admin: 04/09/25 05:48 Dose: 650 mg Documented By: Admin: 04/08/25 21:22 Dose: 650 mg Documented By: STEVO Azelastine HCl (Azelastine Hcl 0.1% Nasal 200 Sprays/27,400 Mcg Btl) 2 sprays NA BID ABDIRASHID Stop: 05/08/25 20:59 Last Admin: 04/09/25 08:50 Dose: 2 sprays Documented By: Admin: 04/08/25 22:35 Dose: 2 sprays Documented By: STEVO Bupropion HCl (Bupropion Sr 150 Mg Tabcr) 150 mg PO QAM ABDIRASHID Stop: 05/09/25 08:59 Last Admin: 04/09/25 08:50 Dose: 150 mg Documented By: PATRICIA Cyclobenzaprine HCl (Cyclobenzaprine Hcl 10 Mg Tab) 10 mg PO BID PRN PRN Reason: muscle spasm or tension Stop: 05/08/25 19:30 Last Admin: 04/08/25 22:34 Dose: 10 mg Documented By: STEVO Dicyclomine HCl (Dicyclomine Hcl 20 Mg Tab) 20 mg PO ONCE ONE Stop: 04/09/25 01:12 Last Admin: 04/09/25 03:00 Dose: 20 mg Documented By: STEVO Dicyclomine HCl (Dicyclomine Hcl 10 Mg Cap) 10 mg PO TID ABDIRASHID Stop: 05/09/25 13:59 Last Admin: 04/09/25 13:56 Dose: 10 mg Documented By: PATRICIA Enoxaparin Sodium (Enoxaparin Inj 40 Mg/0.4 Ml Syr) 40 mg SQ Q24H ABDIRASHID Stop: 05/08/25 19:44 Last Admin: 04/08/25 22:34 Dose: 40 mg Documented By: STEVO Famotidine (Famotidine 20 Mg Tab) 20 mg PO BID ABDIRASHID Stop: 05/08/25 20:59 Last Admin: 04/09/25 08:50 Dose: 20 mg Documented By: Admin: 04/08/25 21:22 Dose: 20 mg Documented By: STEVO Fluticasone/Vilanterol (Fluticasone/Vilanterol 100/25mcg 14 Puffs/Inhaler) 1 puffs INH DAILY ABDIRASHID; Protocol Stop: 05/09/25 08:59 Last Admin: 04/09/25 08:51 Dose: 1 puffs Documented By: PATRICIA Sodium Chloride (Nss) 1,000 mls @ 999 mls/hr IV .Q1H1M ONE Stop: 04/08/25 15:26 Last Infusion: 04/08/25 16:50 Dose: Infused Documented By: Admin: 04/08/25 14:33 Dose: 999 mls/hr Documented By: COLBY Pantoprazole Sodium (Protonix) 40 mg in 10 mls @ 5 mls/min IV BID ABDIRASHID Stop: 04/09/25 20:59 Last Admin: 04/09/25 09:47 Dose: 5 mls/min Documented By: Admin: 04/08/25 22:36 Dose: 5 mls/min Documented By: STEVO Famotidine (Pepcid 20mg Iv Push) 20 mg in 5 mls @ 2.5 mls/min IV NOW STA Stop: 04/08/25 19:35 Last Admin: 04/08/25 20:20 Dose: Not Given Documented By: BETH Pantoprazole Sodium (Protonix) 40 mg in 10 mls @ 5 mls/min IV NOW ONE Stop: 04/08/25 19:35 Last Admin: 04/08/25 20:20 Dose: Not Given Documented By: BETH Ioversol (Optiray 320 100ml) 94 ml IV ONCE ONE Stop: 04/08/25 12:51 Last Admin: 04/08/25 12:51 Dose: 94 ml Documented By: CLAU Levothyroxine Sodium (Levothyroxine Sodium 75 Mcg Tablet) 75 mcg PO DAILYBB ABDIRASHID Stop: 05/09/25 06:29 Last Admin: 04/09/25 05:49 Dose: 75 mcg Documented By: STEVO Metoclopramide HCl (Metoclopramide Hcl Inj 5 Mg/Ml 2 Ml Vial) 5 mg IV ONE ONE Stop: 04/08/25 19:26 Last Admin: 04/08/25 19:31 Dose: 5 mg Documented By: BETH Ondansetron HCl (Ondansetron Inj 2 Mg/Ml 2 Ml Vial) Confirm Administered Dose 4 mg .ROUTE .STK-MED ONE Stop: 04/08/25 12:38 Last Admin: 04/08/25 12:39 Dose: Not Given Documented By: Ondansetron HCl (Ondansetron Inj 2 Mg/Ml 2 Ml Vial) 4 mg IV NOW STA Stop: 04/08/25 12:39 Last Admin: 04/08/25 12:39 Dose: 4 mg Documented By: MR Ondansetron HCl (Ondansetron Inj 2 Mg/Ml 2 Ml Vial) 4 mg IV NOW STA Stop: 04/08/25 14:27 Last Admin: 04/08/25 14:33 Dose: 4 mg Documented By: COLBY Ondansetron HCl (Ondansetron Inj 2 Mg/Ml 2 Ml Vial) 4 mg IV Q8H PRN PRN Reason: Nausea Stop: 05/08/25 19:30 Last Admin: 04/09/25 07:25 Dose: 4 mg Documented By: Admin: 04/08/25 21:22 Dose: 4 mg Documented By: STEVO Ondansetron HCl (Ondansetron Inj 2 Mg/Ml 2 Ml Vial) 4 mg IV NOW STA Stop: 04/08/25 19:35 Last Admin: 04/08/25 20:20 Dose: Not Given Documented By: BETH Rizatriptan Benzoate (Rizatriptan Benzoate 10 Mg Tab) 10 mg PO Q2H PRN PRN Reason: migraine headache Stop: 05/08/25 19:40 Last Admin: 04/09/25 10:57 Dose: 10 mg Documented By: Admin: 04/09/25 04:15 Dose: 10 mg Documented By: Admin: 04/09/25 00:56 Dose: 10 mg Documented By: STEVO Sucralfate (Sucralfate 1 Gm Tab) 1 gm PO ONE ONE Stop: 04/08/25 20:01 Last Admin: 04/08/25 22:56 Dose: 1 gm Documented By: STEVO Topiramate (Topiramate 100 Mg Tab) 100 mg PO BID ABDIRASHID Stop: 05/08/25 20:59 Last Admin: 04/09/25 08:50 Dose: 100 mg Documented By: Admin: 04/08/25 22:35 Dose: 100 mg Documented By: STEVO Venlafaxine HCl (Venlafaxine Hcl Xr 150 Mg Capxr) 150 mg PO QAM ABDIRASHID Stop: 05/09/25 08:59 Last Admin: 04/09/25 08:50 Dose: 150 mg Documented By: [facility] Imaging Data Radiologist's Impression: Chest X-Ray 04/08/25 12:08 SINGLE VIEW CHEST CLINICAL HISTORY: Weakness. FINDINGS: An AP, portable, upright chest radiograph is compared to study dated 11/24/2023. The cardiomediastinal silhouette is unremarkable. The lungs and pleural spaces are clear. No pneumothorax is seen. The skeletal structures are osteopenic. The bony thorax is grossly intact. Mild degenerative change and scoliosis is seen in the spine. IMPRESSION: No active disease in the chest. ACT 112: Negative or not required by law. Electronically signed by: Tahir Andrade M.D. 04/08/2025 12:[address] 04/08/25 12:08 CT SCAN OF THE BRAIN WITHOUT IV CONTRAST CLINICAL HISTORY: Change in mental status. Head injury. COMPARISON STUDY: CT of the brain dated 11/24/2023 TECHNIQUE: Unenhanced axial CT scan of the brain is performed from the vertex to the skull base. Images are reviewed in the axial, sagittal, coronal planes. A dose lowering technique was utilized adhering to the principles of ALARA. FINDINGS: Brain parenchyma: There is age-related involutional change noting mild subcortical and periventricular microangiopathic disease. There is no hemorrhage, mass effect, or evidence of acute territorial ischemia by CT criteria. Harrison-white matter differentiation is preserved. No extra-axial fluid collection is seen. Ventricles, sulci, cisterns: Prominent secondary to involutional change. Intracranial vasculature: There is mild atherosclerotic calcification of the cavernous carotid arteries. Calvarium: Unremarkable. Sinuses and mastoids: The visualized paranasal sinuses are clear. The mastoid air cells are well pneumatized. Orbits: The bony orbits are grossly intact. There are bilateral ocular lens implants. IMPRESSION: There is no hemorrhage, mass effect, or evidence of acute territorial ischemia by CT criteria. ACT 112: Negative or not required by law. Electronically signed by: Tahir Andrade M.D. 04/08/2025 1:07 PM Abdomen/Pelvis CT 04/08/25 12:33 CT SCAN OF THE ABDOMEN AND PELVIS WITH IV CONTRAST CLINICAL HISTORY: Generalized abdominal pain. Nausea and vomiting. Cystitis. COMPARISON STUDY: Abdominal CT dated 11/24/2023 TECHNIQUE: Following the IV administration of 94 cc of Optiray 320, CT scan of the abdomen and pelvis is performed from the lung bases to the proximal femora. Images are reviewed in the axial, sagittal, and coronal planes. IV contrast was administered without complication. A dose lowering technique was utilized adhering to the principles of ALARA. CT DOSE: 1012.89 mGy.cm FINDINGS: Lung bases: The heart is normal in size noting a small pericardial effusion. The lung bases are clear noting dependent atelectasis. There are bilateral fat- containing Bochdalek hernias. There is a small hiatal hernia. Liver: The contrast-enhanced liver is normal in size, contour, and attenuation. There is no intrahepatic biliary ductal dilatation. The hepatic veins and portal veins are patent. Gallbladder: Unremarkable. Spleen: Normal in size and attenuation. Pancreas: Unremarkable. Adrenal glands: A 1.6 cm left adrenal nodule is unchanged and likely represent an adenoma. The right adrenal gland is normal as imaged. Kidneys: The right kidney is surgically absent. The contrast-enhanced left kidney is normal in size and without hydronephrosis. The left kidney enhances normally. Abdominal vasculature: The abdominal aorta is normal in course and caliber. Bowel: There is moderate sigmoid diverticulosis without CT evidence of acute diverticulitis. The colon is largely decompressed and appears diffusely thick walled with mild surrounding infiltration. The appearance suggests a nonspecific colitis. Hyperdense material in the right colon likely represents residual enteric contrast. There is no bowel obstruction. The appendix is well- visualized and normal. Peritoneum: There is no intraperitoneal free air or abdominal ascites. Lymphadenopathy: None. Pelvic viscera: The bladder is normal as visualized. The uterus is surgically absent. No adnexal lesion is seen. Skeletal structures: The skeletal structures are osteopenic. There is moderate lumbosacral spondylosis as well as scoliosis. No lytic or blastic lesions are seen. IMPRESSION: 1. Findings suggest a nonspecific colitis. Correlate clinically. 2. Diverticulosis of the colon without CT evidence of acute diverticulitis. 3. Status post right nephrectomy. 4. Additional findings as above. ACT 112: Negative or not required by law. Electronically signed by: Tahir Andrade M.D. 04/08/2025 1:16 PM Discharge Plan Visit Data Chief Complaint: Fall Stated Complaint: FALL ON TUESDAY, HEAD INJURY, VOMITING, CONFUSION ED Provider: Leann Mayen Discharge Problem: Acute confusion, Delirium Patient Disposition: Admitted As Inpatient Condition: Fair Discharge Instructions Interventions: ED Discharge Assessment Last Done: 04/08/25 19:31
--- NOTE | 2025-04-08 16:46 | History & Physical Report ---
Date of Service April 08, 2025 Assessment & Plan (1) Head trauma: Plan Pt is a 69 year old female with PMH of MDD with KRISTAN, HLD, headache/migraine, IBD, osteoporosis, GERD, asthma, right nephrectomy in 2002, esophageal dysphagia, adenomatous polyp of colon, hypothyroidism, leukopenia, lumbar facet joint syndrome presenting with AMS, dehydration and multiple episodes of n/v without after hitting her head on 04/05. Given Odansetron and NSS in the ED. Head Trauma due to fall - Etiology likely related to malnutrition/dehydration, polypharmacy and mechanical - Has chronic history of migraine and is on multiple anti-dizziness medication. Tripped and fell on night stand after feeling dizzy - Head CT wnl - Consult PT/OT Nausea and vomiting - Likely due to concussion from head trauma - Hold topiramate - Ondansetron 4mg and NSS given in the ED - Protonix 40mg IV BID, Famotidine PO 20mg BID, and sucralfate - Will initiate regular diet at this time, no issues swallowing. If excessive N/V consider reducing to clears diet - Electrolytes normal Dehydration - Anion gap of 15 - likely due to starvation ketosis - CO2 20, POC total CO2 18, fasting glucose 170 - Urinalysis shows elevated specific gravity (1.042), protein and ketone. No bacteria or blood present. - On IV 1L normal saline, given. Continue oral hydration as tolerated - Trend BMP qAM Abd. pain. - Likely chronic - CT abd/pelvis shows mild colitis, diverticulosis and a right nephrectomy Headache/Migrane - Taking qulipta qd (since December) and rizatriptan 10 mg every other day - Hold topiramate - Following Dr. Kay for neuro Dispo: Med surg DVT prophylaxis: Lovenox Diet: Regular Code: Full History of Present Illness Chief Complaint: Altered mental status, dehydration and N/V Primary Care Provider: Raymond Vásquez, Pt is a 69 year old female with PMH of MDD with KRISTAN, HLD, headache/migraine, IBD, osteoporosis, GERD, asthma, right nephrectomy in 2002, esophageal dysphagia, adenomatous polyp of colon, hypothyroidism, leukopenia, lumbar facet joint syndrome presenting with a 2 week history of AMS, dehydration and multiple episodes of n/v without blood since 04/06 morning after hitting her head on 04/05 ~2am due to dizziness and mechanical aspect of fall related to tripping on her night stand. No loss of consciousness and was able to crawl the restroom right after. Patient reports that after this she went back to bed. Reports some chest palpitations and lack of appetite. Has not been able to eat since Tuesday with episodes of feeling hot and cold. Also feels tired with joint pain over the past few day. Has chronic migraine which she takes qulipta qd, topiramate BID, and rizatriptan 10 mg every other day. No symptoms of fever, SOB, chest pain, cough, trouble with urination or stool, dysuria, hematuria, hematuria, or rashes. No recent illness or travels. Allergies Allergy/AdvReac Type Severity Reaction Status Date / Time tree and shrub pollen Allergy Verified 03/29/25 15:12 morphine AdvReac Intermediate Vomiting Verified 03/29/25 15:12 Home Medications Medication Instructions Recorded Confirmed Type ascorbic acid (vitamin C) 500 mg 1,000 mg PO QAM 05/23/18 04/08/25 History capsule calcium carbonate 600 mg PO QPM 07/11/20 04/08/25 History venlafaxine 150 mg 150 mg PO QAM 03/16/21 04/08/25 History capsule,extended release 24 hr (Effexor XR) trazodone 100 mg tablet 200 mg PO HS 01/06/22 04/08/25 History cyclobenzaprine 10 mg tablet 10 mg PO BID PRN muscle spasm or 06/18/24 04/08/25 Rx tension #60 tabs levothyroxine 75 mcg tablet 75 mcg PO DAILY #90 tabs 07/11/24 04/08/25 Rx metoclopramide HCl 5 mg tablet 5 mg PO BID #60 tabs 11/02/24 04/08/25 Rx budesonide-formoterol HFA 80 1 puff inhalation BID #30.6 grams 11/20/24 04/08/25 Rx mcg-4.5 mcg/actuation aerosol inhaler bupropion HCl 150 mg tablet,12 hr 150 mg PO QAM #90 ea 11/20/24 04/08/25 Rx sustained-release (Wellbutrin SR) scopolamine base 1 mg over 3 days 1 patch transdermal Q3D PRN motion 12/19/24 04/08/25 Rx transdermal patch sickness #4 ea azelastine 137 mcg (0.1 %) nasal See Rx Instructions .Route 12/27/24 04/08/25 Rx spray .COMPLEX #30 mL atogepant 60 mg tablet (Qulipta) 60 mg PO DAILY #30 tabs 01/04/25 04/08/25 Rx cetirizine 10 mg tablet (Zyrtec) 10 mg PO DAILY PRN Allergy Symptoms 01/04/25 04/08/25 History dicyclomine 10 mg capsule 10 mg PO TID #270 caps 03/06/25 04/08/25 Rx rizatriptan 10 mg disintegrating 10 mg PO Q2H PRN migraine headache 03/25/25 04/08/25 Rx tablet #12 tabs famotidine 40 mg tablet 40 mg PO DAILY #90 tabs 03/27/25 04/08/25 Rx topiramate 100 mg tablet 100 mg PO BID 04/08/25 04/08/25 History zinc gluconate 30 mg tablet 30 mg PO QPM 04/08/25 04/08/25 History Past Med/Surg History Problem List (Updated 04/08/25 @ 17:25 by Trevor Bui) Head trauma (Acute) KRISTAN (generalized anxiety disorder) MDD (major depressive disorder) Hyperlipidemia Cervicogenic headache Headache Tension headache Chronic diarrhea Vitamin D imbalance (Chronic) Postmenopausal osteoporosis (Chronic) Low back pain (Chronic) Gastroparesis (Chronic) GERD without esophagitis (Chronic) Asthma (Chronic) S/p nephrectomy (Chronic) Right donor nephrectomy 2002. Periorificial dermatitis Managed by [facility] - [facility] prn. Hormone replacement therapy (HRT) (Acute) Adenomatous polyp of colon Sacroiliac dysfunction Thoracic back pain Dense breast Migraine Chronic daily headache Esophageal dysphagia Positive CORI (antinuclear antibody) Positive sm/DISTRIBUTION COORDINATOR antibody Renal insufficiency Change in bowel habits Prolonged QT interval (Acute) QTc 446 on EKG 06/12/2014 Hypothyroidism (Chronic) Depression with anxiety (Chronic) Chronic migraine without aura (Chronic) Manages with Botox injections q90d with [facility] pain management. Dysphagia s/p EGD with dilation 05/25/2019, 06/17/22 Irritable bowel syndrome Adverse reaction to anesthetic agent Extreme nausea Allergic rhinitis Adopted Lumbar facet joint syndrome Leukopenia (Chronic) hx Medical History Basal cell carcinoma of head Nausea and vomiting Acute hypokalemia Weakness GERD (gastroesophageal reflux disease) Asthma History of blood clotting disorder Basal cell carcinoma (BCC) Surgical History History of hernia repair History of kidney donation History of esophagogastroduodenoscopy (EGD) History of nephrectomy History of breast surgery History of hysterectomy History of colonoscopy History of bladder surgery History of back surgery Family History Other Adopted Social History Smoking Status: Never smoker Second Hand Exposure: No; Do You Dip or Chew Tobacco: No; Hx Alcohol Use: No Hx Substance Use: No Preferred Language: Greek Communication Ability: Effective Visual Impairment: No Limitations Hearing Ability: Normal 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 Beliefs That Will Affect Care: None marital status: Current Living Situation: Alone current occupational status: employed current occupation: Private Care How many Children do You have: 3 Feels Safe at Home: Yes Childhood Exposure to Second-Hand Smoke: No Diet: regular caffeine: No during the past year weight has: decreased > 10 lbs Dental Care, Regularly: Yes Physical Activity Frequency: Daily Seatbelt Use: always Sunscreen Use: Yes Assistive Devices: None Review of Systems Review of Systems: All systems reviewed & are unremarkable except as noted in Subjective Physical Exam Physical Exam: General: resting comfortably, A&O x3, well appearing Skin: 4 cm bruise on center of forehead, no rashes, no edema Cardio: RRR, s1/s2 heard, no murmurs, gallops, or rubs Resp: CTA bilaterally, no rhonchi, wheezes, rales Abdominal: RLQ tenderness to palpation, BS in all 4 quadrants, no rebound/guarding, hyperdynamic pulse can hear in abdomen Neuro: CN2-12 intact, A&O x3, normal gait, sensation and muscle strength 5/5 in all extremities bilaterally, PERRLA Results & Data Results & Data Vital Signs (Past 12 Hours) Vital Signs Temp Pulse Pulse Resp BP BP Pulse Ox 04/08/25 15:00 72 20 144/75 H 98 04/08/25 13:50 70 18 135/73 100 04/08/25 12:29 74 04/08/25 11:50 16 04/08/25 11:50 36.6 C 92 H 16 132/78 99 O2 Del Method 04/08/25 15:00 Room Air 04/08/25 13:50 Room Air 04/08/25 12:29 04/08/25 11:50 04/08/25 11:50 Resident Activity Tracking Resident Involvement: Resident Care Provided Care Provided: Adult Hospital Medicine
[2025-04-08] MEDS: METOCLOPRAMIDE HCL INJ 5 MG/ML 2 ML VIAL IV ONE (19:31)
[2025-04-08] MEDS ORDERED: CETIRIZINE HCL 10 MG TABLET PO PRN (19:31)
[2025-04-08] MEDS ORDERED: SCOPOLAMINE 1 MG/72 HR TDSY PATCH TD PRN (19:31)
[2025-04-08] MEDS: FAMOTIDINE 20MG IV PUSH 20 MG/5 ML SYR IV STA (20:20)
[2025-04-08] MEDS: PANTOprazole 40 MG/10 ML SYR IV ONE (20:20)
[2025-04-08] MEDS: FAMOTIDINE 20 MG TAB PO SCH (21:22)
[2025-04-08] MEDS: ACETAMINOPHEN 325 MG TAB PO PRN (21:22)
[2025-04-08] MEDS: ONDANSETRON INJ 2 MG/ML 2 ML VIAL IV PRN (21:22)
[2025-04-08] MEDS: ENOXAPARIN INJ 40 MG/0.4 ML SYR SQ SCH (22:34)
[2025-04-08] MEDS: CYCLOBENZAPRINE HCL 10 MG TAB PO PRN (22:34)
[2025-04-08] MEDS: TOPIRAMATE 100 MG TAB PO SCH (22:35)
[2025-04-08] MEDS: AZELASTINE HCL 0.1% NASAL 200 SPRAYS/27,400 MCG BTL SCH (22:35)
[2025-04-08] MEDS: PANTOprazole 40 MG/10 ML SYR IV SCH (22:36)
[2025-04-08] MEDS: SUCRALFATE 1 GM TAB PO ONE (22:56)
[2025-04-09] MEDS: RIZATRIPTAN BENZOATE 10 MG TAB PO PRN (00:56)
[2025-04-09] MEDS: DICYCLOMINE HCL 20 MG TAB PO ONE (03:00)
--- NOTE | 2025-04-09 05:27 | Electrocardiogram Report ---
Test Reason : Blood Pressure : */* mmHG Vent. Rate : 76 BPM Atrial Rate : 76 BPM P-R Int : 142 ms QRS Dur : 74 ms QT Int : 438 ms P-R-T Axes : 93 79 76 degrees QTcB Int : 492 ms Normal sinus rhythm Biatrial enlargement Prolonged QT Abnormal ECG When compared with ECG of 24-Nov-2023 20:32, No significant change was found Confirmed by Pérez Cerrato ([id number]) on 04/09/2025 5:27:24 AM Referred By: REFERRED SELF Confirmed By: Pérez Cerrato
[2025-04-09] MEDS: LEVOTHYROXINE SODIUM 75 MCG TABLET PO SCH (05:49)
[2025-04-09 07:07] VITALS: BP 136/75; PULSE 61; RESP 18; TEMP 98.2; O2SAT 99
[2025-04-09] MEDS: VENLAFAXINE HCL XR 150 MG CAPXR PO SCH (08:50)
[2025-04-09] MEDS: FLUTICASONE/VILANTEROL 100/25MCG 14 PUFFS/INHALER INH SCH (08:51)
[2025-04-09] MEDS ORDERED: LEVOTHYROXINE SODIUM 75 MCG TABLET PO SCH (09:00)
[2025-04-09] MEDS: DICYCLOMINE HCL 10 MG CAP PO SCH (13:56)
--- NOTE | 2025-04-09 17:58 | Discharge Summary ---
"Discharge Summary Date of Service April 09, 2025 Principal Dx & Hospital Course #1 = Principal Diagnosis (1) Concussion: (2) Head trauma: (3) Dehydration: Plan Pt is a 69 year old female with PMH of MDD with KRISTAN, HLD, headache/migraine, IBD, osteoporosis, GERD, asthma, right nephrectomy in 2002, esophageal dysphagia, adenomatous polyp of colon, hypothyroidism, leukopenia, lumbar facet joint syndrome. She presented with 2 weeks of altered mental status, nausea with vomiting, and subsequent dehydration after hitting her head on 04/05 when getting out of bed. Clinically dehydrated with anion gap of 15 (likely due to starvation ketosis), urinalysis showed elevated specific gravity (1.042), protein and ketone. S/p 1 L IV fluid. #Fall | concussion | nausea vomiting | dehydration - Etiology of initial fall likely related to malnutrition/dehydration, polypharmacy and mechanical. Nausea/vomiting/dehydration likely due to concussion from head trauma during fall. - Has chronic history of migraine and is on multiple anti-dizziness medication. Tripped and fell on night stand after feeling dizzy - Head CT wnl - PT/OT evaluated her and cleared her to return home - Well-tolerated regular diet without any further nausea/vomiting #Abd. pain - Likely chronic - CT abd/pelvis shows mild colitis, diverticulosis and a right nephrectomy. Stool burden evident on CT - Discussed that while Bentyl helps with abdominal cramps, it is an antispasmodic which can cause constipation. Recommended that she also supplements with MiraLAX or other OTC bowel regimen to treat/prevent co nstipation #Headache/Migraine - Patient reports she does not well tolerate Qulipta and has not really been taking this. Recommended she holds this on discharge - Following Dr. Kay for neuro #Polypharmacy recommend clear medication reconciliation in outpatient setting and reducing/discontinuing meds as able. Did schedule PCP appointment prior to discharge - scheduled for 04/16/25 Dispo: Discharged home 04/09 Notes For Next Care Provider Recommend clear medication reconciliation with PCP and reducing/discontinuing meds as able. I discussed with patient and her /daughter that unfortunately the inpatient setting is not the most appropriate setting to make a lot of changes to chronic medications, especially since I cannot provide ongoing follow-up on these changes with her outpatient. Medication Changes From Visit Held Qulipta Zofran as needed for N/V Recommended to start MiraLAX Admission HPI Per Admitting Provider Pt is a 69 year old female with PMH of MDD with KRISTAN, HLD, headache/migraine, IBD, osteoporosis, GERD, asthma, right nephrectomy in 2002, esophageal dysphagia, adenomatous polyp of colon, hypothyroidism, leukopenia, lumbar facet joint syndrome presenting with a 2 week history of AMS, dehydration and multiple episodes of n/v without blood since 04/06 morning after hitting her head on 04/05 ~2am due to dizziness and mechanical aspect of fall related to tripping on her night stand. No loss of consciousness and was able to crawl the restroom right after. Patient reports that after this she went back to bed. Reports some chest palpitations and lack of appetite. Has not been able to eat since Tuesday with episodes of feeling hot and cold. Also feels tired with joint pain over the past few day. Has chronic migraine which she takes qulipta qd, topiramate BID, and rizatriptan 10 mg every other day. No symptoms of fever, SOB, chest pain, cough, trouble with urination or stool, dysuria, hematuria, hematuria, or rashes. No recent illness or travels. Discharge Exam General: No acute distress, nondiaphoretic, well-developed, well-nourished. Skin: Warm, dry. 4 cm bruise on center of forehead. No rashes or peripheral edema noted. Cardiac: Regular rate and rhythm without murmurs gallops or rubs. Pulm: Clear to auscultation bilaterally without wheezes, rales or rhonchi. Normal respiratory effort. 99% on room air. Abdominal: Soft, nontender, nondistended. Bowel sounds present. Neuro: A&O x3. No focal neurological deficits. Discharge Plan Discharge Items Patient Disposition: Home - Self-Care Reason For Visit: FALL, NAUSEA/VOMITING Discharge Diagnosis: Concussion, nausea/vomiting now resolved, polypharmacy Condition on Discharge: Fair Activity: Resume your previous activity Non-emergency contact: Primary Care Provider Call non-emergency contact if: you have any medication questions and your symptoms worsen Follow-up/Referrals: Raymond Vásquez DO [Primary Care Provider] - 04/16/25 9:20 am (Follow-up in 1- 2 weeks) Diet: Regular Addtl Attending Provider Instructions: Laurelyn, You were admitted to the hospital after you sustained a fall at home and subsequently struck your head. This head strike likely resulted in a concussion, which caused your nausea and vomiting. Fortunately, the CT scan of your head did not show any hemorrhage, mass effect, or evidence of stroke. The CT scan of your abdomen and pelvis showed some constipation but no acute processes. Your chest x-ray and urinalysis were negative. You were evaluated by physical and Occupational Therapy and did well with them, so they recommended return home. You have well-tolerated your diet without any episodes of nausea or vomiting. I definitely recommend sitting down with your PCP and reviewing all of your medications. Your PCP can decide which medications can be reduced and/or discontinued altogether, and can continue to follow-up with you after making t hese changes. Please follow-up with your PCP within 1-2 weeks. I have asked the escrow secretary to schedule this appointment for you prior to leaving the hospital. For now, I would hold your Qulipta medicine as we discussed since that seems to not be well-tolerated. I have sent some Zofran into your pharmacy that you can take as needed for nausea/vomiting. It was a pleasure taking care of you while you were in the hospital! Pending Studies at Discharge: No Stand-Alone Forms: My [facility], Smoking Cessation Medications and DC Order Prescriptions: New ondansetron 4 mg tablet,disintegrating 4 mg PO Q6H PRN (Reason: nausea and vomiting) Qty: 30 0RF Continued ascorbic acid (vitamin C) 500 mg capsule 1,000 mg PO QAM cyclobenzaprine 10 mg tablet 10 mg PO BID PRN (Reason: muscle spasm or tension) Qty: 60 5RF levothyroxine 75 mcg tablet 75 mcg PO DAILY Qty: 90 3RF metoclopramide HCl 5 mg tablet 5 mg PO BID Qty: 60 5RF scopolamine base 1 mg over 3 days patch 3 day 1 patch transdermal Q3D PRN (Reason: motion sickness) Qty: 4 0RF dicyclomine 10 mg capsule 10 mg PO TID Qty: 270 5RF rizatriptan 10 mg tablet,disintegrating 10 mg PO Q2H PRN (Reason: migraine headache) Qty: 12 5RF Rx Instructions: do not exceed 3 doses per 24 hrs trazodone 100 mg tablet 200 mg PO HS calcium carbonate 600 mg calcium (1,500 mg) tablet 600 mg PO QPM venlafaxine [Effexor XR] 150 mg capsule,extended release 24hr 150 mg PO QAM famotidine 40 mg tablet 40 mg PO DAILY Qty: 90 3RF azelastine 137 mcg (0.1 %) spray,non-aerosol See Rx Instructions .ROUTE .COMPLEX Qty: 30 5RF Rx Instructions: USE 1-2 SPRAYS EACH NOSTRIL 1-2 TIMES DAILY.; administer into each nostril bupropion HCl [Wellbutrin SR] 150 mg tablet sustained-release 12 hr 150 mg PO QAM Qty: 90 3RF budesonide-formoterol 80-4.5 mcg/actuation HFA aerosol inhaler 1 puff INHALATION BID Qty: 30.6 1RF cetirizine [Zyrtec] 10 mg tablet 10 mg PO DAILY PRN (Reason: Allergy Symptoms) topiramate 100 mg tablet 100 mg PO BID zinc gluconate 30 mg Tablet 30 mg PO QPM Held Qulipta 60 mg tablet 60 mg PO DAILY Qty: 30 5RF Hold Instructions: Provider's Order Discharge Orders: Discharge Order (Routine); Ordered 04/09/25 Ordered By: Winsome Sparks/Other Patient Handouts: ED Diet Vomiting Diarrhea Admission Data Admit Date/Time: 04/08/25 16:44 Attending Provider: Franco Shaw Admit Provider: Toni Covarrubias Primary Care Provider: Raymond Vásquez Other Providers: Franco Shaw Other Interventions: Discharge Summary Assessment (RN) Last Done: 04/09/25 14:32 Hospital Stay Data Consultations 04/08/25 15:15 ED Decision to Admit Stat Diagnostic Imagining Performed Chest X-Ray 04/08/25 12:08 SINGLE VIEW CHEST CLINICAL HISTORY: Weakness. FINDINGS: An AP, portable, upright chest radiograph is compared to study dated 11/24/2023. The cardiomediastinal silhouette is unremarkable. The lungs and pleural spaces are clear. No pneumothorax is seen. The skeletal structures are osteopenic. The bony thorax is grossly intact. Mild degenerative change and scoliosis is seen in the spine. IMPRESSION: No active disease in the chest. ACT 112: Negative or not required by law. Electronically signed by: Tahir Andrade M.D. 04/08/2025 12:[address] 04/08/25 12:08 CT SCAN OF THE BRAIN WITHOUT IV CONTRAST CLINICAL HISTORY: Change in mental status. Head injury. COMPARISON STUDY: CT of the brain dated 11/24/2023 TECHNIQUE: Unenhanced axial CT scan of the brain is performed from the vertex to the skull base. Images are reviewed in the axial, sagittal, coronal planes. A dose lowering technique was utilized adhering to the principles of ALARA. FINDINGS: Brain parenchyma: There is age-related involutional change noting mild subcortical and periventricular microangiopathic disease. There is no hemorrhage, mass effect, or evidence of acute territorial ischemia by CT criteria. Harrison-white matter differentiation is preserved. No extra-axial fluid collection is seen. Ventricles, sulci, cisterns: Prominent secondary to involutional change. Intracranial vasculature: There is mild atherosclerotic calcification of the cavernous carotid arteries. Calvarium: Unremarkable. Sinuses and mastoids: The visualized paranasal sinuses are clear. The mastoid air cells are well pneumatized. Orbits: The bony orbits are grossly intact. There are bilateral ocular lens implants. IMPRESSION: There is no hemorrhage, mass effect, or evidence of acute territorial ischemia by CT criteria. ACT 112: Negative or not required by law. Electronically signed by: Tahir Andrade M.D. 04/08/2025 1:07 PM Abdomen/Pelvis CT 04/08/25 12:33 CT SCAN OF THE ABDOMEN AND PELVIS WITH IV CONTRAST CLINICAL HISTORY: Generalized abdominal pain. Nausea and vomiting. Cystitis. COMPARISON STUDY: Abdominal CT dated 11/24/2023 TECHNIQUE: Following the IV administration of 94 cc of Optiray 320, CT scan of the abdomen and pelvis is performed from the lung bases to the proximal femora. Images are reviewed in the axial, sagittal, and coronal planes. IV contrast was administered without complication. A dose lowering technique was utilized adhering to the principles of ALARA. CT DOSE: 1012.89 mGy.cm FINDINGS: Lung bases: The heart is normal in size noting a small pericardial effusion. The lung bases are clear noting dependent atelectasis. There are bilateral fat- containing Bochdalek hernias. There is a small hiatal hernia. Liver: The contrast-enhanced liver is normal in size, contour, and attenuation. There is no intrahepatic biliary ductal dilatation. The hepatic veins and portal veins are patent. Gallbladder: Unremarkable. Spleen: Normal in size and attenuation. Pancreas: Unremarkable. Adrenal glands: A 1.6 cm left adrenal nodule is unchanged and likely represent an adenoma. The right adrenal gland is normal as imaged. Kidneys: The right kidney is surgically absent. The contrast-enhanced left kidney is normal in size and without hydronephrosis. The left kidney enhances normally. Abdominal vasculature: The abdominal aorta is normal in course and caliber. Bowel: There is moderate sigmoid diverticulosis without CT evidence of acute diverticulitis. The colon is largely decompressed and appears diffusely thick walled with mild surrounding infiltration. The appearance suggests a nonspecific colitis. Hyperdense material in the right colon likely represents residual enteric contrast. There is no bowel obstruction. The appendix is well- visualized and normal. Peritoneum: There is no intraperitoneal free air or abdominal ascites. Lymphadenopathy: None. Pelvic viscera: The bladder is normal as visualized. The uterus is surgically absent. No adnexal lesion is seen. Skeletal structures: The skeletal structures are osteopenic. There is moderate lumbosacral spondylosis as well as scoliosis. No lytic or blastic lesions are seen. IMPRESSION: 1. Findings suggest a nonspecific colitis. Correlate clinically. 2. Diverticulosis of the colon without CT evidence of acute diverticulitis. 3. Status post right nephrectomy. 4. Additional findings as above. ACT 112: Negative or not required by law. Electronically signed by: Tahir Andrade M.D. 04/08/2025 1:16 PM Pending Results Patient Have Any Pending Studies at Discharge: No Discharge Instructions Given to Patient (Per Discharging Provider) Hugh You were admitted to the hospital after you sustained a fall at home and subsequently struck your head. This head strike likely resulted in a concussion, which caused your nausea and vomiting. Fortunately, the CT scan of your head did not show any hemorrhage, mass effect, or evidence of stroke. The CT scan of your abdomen and pelvis showed some constipation but no acute processes. Your chest x-ray and urinalysis were negative. You were evaluated by physical and Occupational Therapy and did well with them, so they recommended return home. You have well-tolerated your diet without any episodes of nausea or vomiting. I definitely recommend sitting down with your PCP and reviewing all of your medications. Your PCP can decide which medications can be reduced and/or discontinued altogether, and can continue to follow-up with you after making these changes. Please follow-up with your PCP within 1-2 weeks. I have asked the escrow secretary to schedule this appointment for you prior to leaving the hospital. For now, I would hold your Qulipta medicine as we discussed since that seems to not be well-tolerated. I have sent some Zofran into your pharmacy that you can take as needed for nausea/vomiting. It was a pleasure taking care of you while you were in the hospital! Supervising Physician Co-Signing Physician Notes chart reviewed, case d/w S Chema EL, as above Total Time Total Time Spent Total Time Spent (In Minutes): Greater than 30 minutes spent completing this discharge process including direct patient care, medication reconciliation, documentation, review of labs and images, and coordination of care. Coding Level of Care Code 84779 INP/OBS DISCH >30 MIN Diagnoses Concussion S06.0XAA Head trauma S09.90XA Dehydration E86.0"
== END 2025-04-09 15:05 | disposition home or self-care (01) ==
LOC: ED 11:49 → EDINP 11:49 → 3N 20:41